=== PATIENT | female | born 1940 | race African-American/Black ===

== ENCOUNTER 2019-06-13 13:51 | Inpatient (IN) ==
[2019-06-13] MEDS ORDERED: ZOFRAN IV ONE (14:22)
[2019-06-13] MEDS ORDERED: PEPCID IV ONE (14:22)
[2019-06-13] MEDS ORDERED: NS 250 ML IV ONE (14:22)
[2019-06-13] MEDS ORDERED: SODIUM CHLORIDE 0.9% INJ ONE (14:22)
--- NOTE | 2019-06-13 14:55 | PROVIDER DOCUMENTATION ---
HPI-Abdominal Pain/GI Problem - General Chief Complaint: Nausea/Vomiting Stated Complaint: GENERAL Time Seen by Provider: 06/13/19 14:22 Source: patient Allergies/Adverse Reactions: Patient Allergies Allergy/AdvReac Type Severity Reaction Status Date / Time No Known Allergies Allergy Verified 06/13/19 15:02 Home Medications: Home Medication List Medication Instructions Recorded Confirmed Last Taken Type Guaifenesin/Dextromethorphan 1 each PO Q12H PRN PRN #30 03/08/16 06/13/19 Unknown Rx [Mucinex Dm ER 1,200-60 mg Tab] tbmp.12hr Amlodipine [Norvasc] 1 tab PO DAILY 06/13/19 06/13/19 Unknown History Fluticasone 50 Mcg Nasal [place] 1 spray INH DAILY 06/13/19 06/13/19 Unknown History [Flonase] Guaifenesin/Dextromethorphan 1 tab PO DAILY 06/13/19 06/13/19 Unknown History [Mucus Dm Max ER 1,200-60 mg Tb] Latanoprost 1 drp OPH DAILY 06/13/19 06/13/19 Unknown History Omeprazole 40 mg PO DAILY 06/13/19 06/13/19 Unknown History Pioglitazone [Actos] 1 tab PO DAILY 06/13/19 06/13/19 Unknown History Rosuvastatin Calcium 1 tab PO DAILY 06/13/19 06/13/19 Unknown History Spironolactone 1 tab PO DAILY 06/13/19 06/13/19 Unknown History Trazodone HCl 1 tab PO DAILY 06/13/19 06/13/19 Unknown History - History of Present Illness-ABD Nature of Presenting Problems: 78yof presents to ED c/o N/V since last night. States she was sent here per GI lab for eval for SBO; was scheduled for colonoscopy. Quality of Pain: reports: none Severity in ED: reports: mild Onset/Duration: reports: gradual, 24 hours ago Timing: reports: still present Activities at Onset: reports: none Exposure to sick contacts?: No Modifying Factors: improves with: nothing Associated Symptoms: reports: denies symptoms Bruising or Bleeding Gums?: No Similar Symptoms Previously?: No Recently seen or treated by another doctor?: No Review of Systems - Adult - REVIEW OF SYSTEMS - ADULT Constitutional: reports: no symptoms reported Eyes: reports: no symptoms reported Ears, Nose, Mouth & Throat: reports: no symptoms reported Cardiovascular: reports: no symptoms reported Respiratory: reports: no symptoms reported Gastrointestinal: reports: see HPI, nausea, vomiting Genitourinary: reports: no symptoms reported Musculoskeletal: reports: no symptoms reported Integumentary: reports: no symptoms reported Neurological: reports: no symptoms reported Psychiatric: reports: no symptoms reported Endocrine: reports: no symptoms reported Hematologic/Lymphatic: reports: no symptoms reported Allergic/Immunologic: reports: no symptoms reported All Other Systems: Reviewed and Negative Past History - Adult - PAST MEDICAL HISTORY-ADULT Review of Records: reports: Old Records Reviewed, Nursing Assessment Review, Medications Reviewed, Social history reviewed & non-contributory. Major Childhood Illnesses: reports: denies history Cardiovascular: reports: HTN, hyperlipidemia Respiratory: reports: denies history Gastrointestinal: reports: denies history Obstetrical/Gynecological: reports: denies history Genitourinary: reports: denies history Musculoskeletal: reports: arthritis Neurological: reports: denies history Endocrine/Immune: reports: Diabetes Other Conditions: reports: denies history - PRIOR SURGERIES/PROCEDURES Surgical/Procedure History: reports: reviewed, not pertinent, other (lumpectomy) - IMMUNIZATION STATUS Childhood Immunizations: See Nurse Assessment Flu Vaccine: See Nurse Assessment - FAMILY HISTORY Family History: reviewed, not pertinent, other (not contributory) - SOCIAL HISTORY Smoking: non-smoker Living Situation: family Physical Exam-General - PHYSICAL EXAM-ADULT Initial Vital Signs Reviewed: Yes - CONSTITUTIONAL General Appearance: appears well, alert, no apparent distress - EYES Eyes: PERRL/EOMI, pink conjunctivae, anisocoria - HEAD, EARS, NOSE, MOUTH & THROAT HENMT: normocephalic/atraumatic, normal ENT inspection, TMs normal, pharynx normal, other (Dry MM) - NECK Neck: non-tender, full range of motion, supple, normal inspection - RESPIRATORY Respiratory: chest non-tender, lungs clear, normal breath sounds, no pleuratic chest pain, no respiratory distress, no accessory muscle use - CARDIOVASCULAR Cardiovascular: normal peripheral pulses, regular rate, rhythm, no edema, no gallop, no JVD - GASTROINTESTINAL (ABDOMEN) Abdominal Exam: normal bowel sounds, non tender, soft, no organomegaly - LYMPHATIC Lymphatic: no adenopathy, axilla node tender - MUSCULOSKELETAL Back Exam: normal inspection, no CVA tenderness, no vertebral tenderness Extremity: normal range of motion, non-tender, normal gait - SKIN Integumentary: normal color, normal turgor, warm/dry - NEUROLOGIC Neurologic: glass etcher II-XII nml as tested, grossly normal, no motor/sensory deficits - PSYCHIATRIC Psych/Mental Status: normal mood/affect, normal thought content, normal thought process, oriented x 3 Progress - PLAN OF CARE/RESULTS Progress/Plan/Lab Results: Vital Signs - 8 hr 06/13/19 13:59 Temperature 97.6 F Pulse Rate 105 H Respiratory Rate 18 Blood Pressure 114/80 O2 Sat by Pulse Oximetry 98 Orders Category Date Time Status Finger Stick Blood Sugar (ED) DIRECTED Care 06/13/19 14:55 Ordered AMYLASE [CHEM] Stat Lab 06/13/19 14:22 Uncollected CBC WITH DIFF [HEME] Stat Lab 06/13/19 14:22 Uncollected COMPREHENSIVE METABOLIC PANEL [CHEM] Stat Lab 06/13/19 14:22 Uncollected LIPASE [CHEM] Stat Lab 06/13/19 14:22 Uncollected URINALYSIS W/POSS RFLX CULT [URINALYSIS] Stat Lab 06/13/19 14:22 Uncollected VBG [VENOUS BLOOD GAS] [RESP] Stat Lab 06/13/19 14:55 Uncollected 0.9% Sodium Chloride Inj [Ns] 250 ml Med 06/13/19 14:22 Discontinued IV 999 mls/hr Famotidine [Pepcid] Med 06/13/19 14:22 Discontinued 20 mg IV NOW ONE Ondansetron [Zofran] Med 06/13/19 14:22 Discontinued 4 mg IV NOW ONE Sodium Chloride 0.9% Med 06/13/19 14:22 Discontinued 5 - 10 ml INJ NOW ONE Lab results, imaging results, need for admission, and plan of care discussed with patient and daughter. Result Diagrams: 06/13/19 14:19 06/13/19 14:19 - EKG 1 Time of EKG reading by physician:: 17:11 EKG Read and Signed by:: Aaron Renee EKG Interpretation (*Must complete 3 of following elements*): Abnormal Rate: 102 Rhythm: [address] [place]: normal QRS: normal [place] Interval: normal ST Wave: normal - XRAY 1 XRAY: Bilateral XRAY Study: Chest Impression: See EMR Report ([facility] - [address], [address], [place] [address] [address] Department of Imaging Patient: ALBERTA MOLINA Date: 06/13/19MR#: [id number] : 1940DM Status: REG ERAcct#: [id number] Age/Sex: 78/FRoom/Bed: Loc: ED Ordering Physician: Blanca Khan Family Physician: Ming Palmer Jr, MD Reason for Procedure: Vomiting; concern for aspiration ___ Signed EXAM: CHEST-1 VIEW INDICATION: Vomiting; concern for aspiration TECHNIQUE: One view COMPARISON: 06/01/2019 FINDINGS: The lungs are grossly clear. There is no discrete pleural fluid collection or pneumothorax. The cardiomediastinal silhouette and central vasculature are grossly unremarkable. IMPRESSION: No evidence of acute pathology by plain radiograph. Electronically signed by Benitez Bloom 06/13/2019 6:27 PM 06/13/191826 Interpreting Physician: Benitez Bloom MD Dictated Date/Time: 06/13/191826 cc: Blanca Juarez; Ming Palmer Jr, MD) - CT/MRI 1 CT Study: Abdomen, Pelvis Impression: See EMR Report ([facility] - [address], [address], [place] [address] [address] Department of Imaging Patient: ALBERTA MOLINA Date: 06/13/19MR#: [id number] : 1940DM Status: REG ERAcct#: [id number] Age/Sex: 78/FRoom/Bed: Loc: ED Ordering Physician: Chante Phillip Family Physician: Ming Palmer Jr, MD Reason for Procedure: abd pain, vomiting Signed EXAM: CT ABDOMEN/PELVIS W/O CONTRAST INDICATION: abd pain, vomiting TECHNIQUE: This exam was performed using automated exposure control, adjustment of mA or kV according to patient size, and/or use of iterative reconstruction technique. COMPARISON: None. FINDINGS: The liver, gallbladder, and spleen are grossly unremarkable. The pancreas is somewhat atrophic but is unremarkable, otherwise. There is a 1.6 cm right adrenal nodule and a 1.9 cm left adrenal nodule. They're densities are highly compatible with adenomas. There are a couple small cyst density lesions associated with the right kidney. The kidneys are unremarkable, otherwise. The urinary bladder is nondistended and is grossly unremarkable, otherwise. There is a partially calcified nodule at the fundus of the uterus consistent with a leiomyoma. The reproductive tract is grossly unremarkable as imaged, otherwise. The appendix is normal. There are a very few colonic diverticula with no evidence of diverticulitis. There is a small hiatal hernia. No focal bowel wall thickening or bowel obstruction is identified. The remainder of the GI tract is grossly unremarkable. There is a small umbilical hernia that contains only fat. There is extensive aortoiliac atherosclerotic calcification. No focal inflammatory changes, free abdominal gas, or free fluid is identified. There is extensive multilevel degenerative arthropathy throughout the lumbar and lower thoracic spine. There is no evidence of acute osseous abnormality. IMPRESSION: 1.Small hiatal hernia. 2.Bilateral adrenal adenomas. 3.Other incidental/nonacute findings detailed above. No definite acute pathology by unenhanced CT. Electronically signed by Benitez Bloom 06/13/2019 3:38 PM 06/13/19 4558 Interpreting Physician: Benitez Bloom MD Dictated Date/Time: 06/13/19 7846 cc: Chante Phillip; Ming Palmer Jr, MD) - CONSULTS/PCP/HOSPITALIST Notification #1 *Consult/PCP/Hospitalist*: MD Estuardo (condominium manager for [facility]) Time Discussed: 18:05 Reason/Comments: Dehydration; elevated tropnin; n/v Consult Disposition: Will see in ED, Admit - CHANGE OF SHIFT REPORT (ED Provider) 1 Report Given and Care Transferred to:: Blanca ADELA Time of Transfer: 15:51 Items Pending: Labs, CT/MRI Results Departure - Departure Date of Disposition Decision: 06/13/19 Time of Disposition Decision: 18:08 DIAGNOSIS: Dehydration, Elevated troponin, Ketonuria Nausea and vomiting Qualifiers: Vomiting type: unspecified Vomiting Intractability: non-intractable Qualified Code(s): R11.2 - Nausea with vomiting, unspecified Renal failure Qualifiers: Renal failure chronicity: unspecified chronicity Qualified Code(s): N19 - Unspecified kidney failure Disposition: ADMITTED INPATIENT 09 Certified Medical Emergency: Emergent Condition: Fair Referrals and Follow-Ups: Ming Palmer Jr, MD [Primary Care Provider] - - Critical Care Note This patient required my direct & personal management of CC.: No Attestation - Physician/ JAILENE Attestation Patient care was provided by Advanced Practice Provider:: Yes Advanced Practice Provider:: Chante Phillip Advanced Practice Provider documentation review:: The Mid-level provider documentation, treatment plan and medical decision making was reviewed by the physician who agrees with all treatment and medical decision making by the MLP. The physician spent face to face time with patient:: No Advanced Practice Provider documentation review:: Supervising physician onsite and consulted in the evaluation and care of this patient. The physician did not have a face to face encounter with the patient.
[2019-06-13 15:07] LABS: BASO# 0.01 X1000 (0.0-0.2); BASO% 0.1 % (0.0-0.8); HEMATOCRIT 38.8 % (37.0-47.0); IMM GRAN# 0.12 X1000 (0.0-0.04); IMM GRAN% 1.3 % (0.0-0.5); LYMPH# 1.42 X1000 (1.2-3.4); LYMPH% 15.1 % (20.5-51.1); MCHC 33.5 g/dL (33-37); MCV 89.6 FL (81-99); MONO# 0.47 X1000 (0.11-0.59); MPV 9.9 FL (7.4-10.4); NEUT# 7.38 X1000 (1.4-6.5); NEUT% 78.5 % (42.2-75.2); PLT 210 X1000 (130-400); RBC 4.33 XMIL (4.2-5.4); RDW 14.9 % (11.5-14.5)
[2019-06-13 15:32] LABS: ALB/GLOB RATIO 1.6; ALBUMIN 4.5 g/dL (3.5-5.0); CALCIUM 10.1 mg/dL (8.8-10.2); CREATININE 2.9 mg/dL (0.5-0.9); POTASSIUM 4.3 mmol/L (3.5-5.1); TOTAL BILIRUBIN 0.83 mg/dL (0.20-1.00); TOTAL PROTEIN 7.4 g/dL (6.3-8.3)
--- NOTE | 2019-06-13 15:41 | Diag Imaging Result Doc PS360 ---
EXAM: CT ABDOMEN/PELVIS W/O CONTRAST INDICATION: abd pain, vomiting TECHNIQUE: This exam was performed using automated exposure control, adjustment of mA or kV according to patient size, and/or use of iterative reconstruction technique. COMPARISON: None. FINDINGS: The liver, gallbladder, and spleen are grossly unremarkable. The pancreas is somewhat atrophic but is unremarkable, otherwise. There is a 1.6 cm right adrenal nodule and a 1.9 cm left adrenal nodule. They're densities are highly compatible with adenomas. There are a couple small cyst density lesions associated with the right kidney. The kidneys are unremarkable, otherwise. The urinary bladder is nondistended and is grossly unremarkable, otherwise. There is a partially calcified nodule at the fundus of the uterus consistent with a leiomyoma. The reproductive tract is grossly unremarkable as imaged, otherwise. The appendix is normal. There are a very few colonic diverticula with no evidence of diverticulitis. There is a small hiatal hernia. No focal bowel wall thickening or bowel obstruction is identified. The remainder of the GI tract is grossly unremarkable. There is a small umbilical hernia that contains only fat. There is extensive aortoiliac atherosclerotic calcification. No focal inflammatory changes, free abdominal gas, or free fluid is identified. There is extensive multilevel degenerative arthropathy throughout the lumbar and lower thoracic spine. There is no evidence of acute osseous abnormality. IMPRESSION: 1.Small hiatal hernia. 2.Bilateral adrenal adenomas. 3.Other incidental/nonacute findings detailed above. No definite acute pathology by unenhanced CT. Electronically signed by Benietz Bloom 06/13/2019 3:38 PM
[2019-06-13 15:44] VITALS: BP 128/73
[2019-06-13 16:23] LABS: BE -7.8 mmoll (-2.0-2.0); BLOOD TYPE VENOUS; HCO3-(ACT) 17.9 mmoll (22-27); PCO2(98.6) 29 mmHg (40-60); PO2(98.6) 29 mmHg (30-55); SAMPLE BLOOD; SAO2 60.6 % (40.0-85.0); pH(98.6) 7.36 (7.32-7.43)
[2019-06-13] MEDS ORDERED: NS 1,000 ML IV ONE (16:34)
[2019-06-13 17:37] LABS: URINE SOURCE CATH
[2019-06-13 17:41] LABS: BILIRUBIN URINE MODERATE (NEGATIVE); BLOOD URINE SMALL (NEGATIVE); COLOR YELLOW; GLUCOSE URINE NEGATIVE (NEGATIVE); KETONE URINE 20 mg/dL (NEGATIVE); LEUKOCYTES URINE NEGATIVE (NEGATIVE); NITRITE URINE NEGATIVE (NEGATIVE); PROTEIN URINE 70 mg/dL (NEGATIVE); TURBIDITY URINE HAZY (CLEAR); UROBILINOGEN URINE 3 mg/dL (NORMAL)
[2019-06-13 17:43] LABS: UR EPITHELIAL CELLS >10 /HPF (<10); URINE BACTERIA NEGATIVE /HPF; URINE RBC <10 /HPF (<10); URINE WBC <10 /HPF (<10)
[2019-06-13 17:53] LABS: URINE SMALL ROUND CELLS TRANS PRESENT
--- NOTE | 2019-06-13 17:58 | EKG Report ---
Test Performed on : 06/13/2019 5:04:52 PM Test Reason : vomiting Blood Pressure : / mmHG Vent. Rate : 102 BPM Atrial Rate : 102 BPM P-R Int : 154 ms QRS Dur : 078 ms QT Int : 356 ms P-R-T Axes : 073 030 073 degrees QTc Int : 463 ms Sinus tachycardia. Otherwise normal ECG When compared with ECG of 01-JUN-2019 11:49, (Unconfirmed) premature atrial complexes. are no longer present Unconfirmed Result
[2019-06-13] MEDS ORDERED: HALDOL IV ONE (18:02)
--- NOTE | 2019-06-13 18:29 | Diag Imaging Result Doc PS360 ---
EXAM: CHEST-1 VIEW INDICATION: Vomiting; concern for aspiration TECHNIQUE: One view COMPARISON: 06/01/2019 FINDINGS: The lungs are grossly clear. There is no discrete pleural fluid collection or pneumothorax. The cardiomediastinal silhouette and central vasculature are grossly unremarkable. IMPRESSION: No evidence of acute pathology by plain radiograph. Electronically signed by Benitez Bloom 06/13/2019 6:27 PM
[2019-06-13] MEDS ORDERED: MUCINEX DM PO PRN (19:29)
[2019-06-13] MEDS ORDERED: NS 1,000 ML IV SCH (19:45)
--- NOTE | 2019-06-13 20:06 | HISTORY AND PHYSICAL ---
CHIEF COMPLAINT: Nausea and vomiting. PRESENT ILLNESS: This is the first recent [facility] admission for this 78-year-old black female patient of Dr. Ming Palmer. She presented to the emergency room with 24-hour history of frequent nausea and vomiting and inability to hold anything down. She had no hematemesis. There has been no diarrhea or fever. She was evaluated in the emergency room. CT scan of her abdomen and pelvis revealed small hiatal hernia, bilateral adrenal adenomas, uterus consistent with a leiomyoma, diverticula, but no diverticulitis of the colon. There was no evidence of bowel obstruction. There was a small umbilical hernia containing only fat. There was extensive atherosclerotic calcification in the aortoiliac areas. Because of her intractable vomiting, decision was made to put her in the hospital for hydration and further evaluation. Laboratory revealed normal white count at 9400, hematocrit 38.8, BUN 30, creatinine 2.9. She was in the emergency room a little over a week ago, and BUN was 43, creatinine 2.3. Glucose today is 118. Recheck is 98. Troponin is mildly elevated at 0.04. CPK not done. Amylase was 27, lipase 13. PRESENT MEDICATIONS: Amlodipine 10 mg 1 daily. Flonase nasal spray daily. Guaifenesin dextromethorphan ER 1200/60 one q.12 h. Omeprazole 40 mg daily. Actos 30 mg daily. Crestor 40 mg daily. Spironolactone 50 mg daily. Trazodone 150 mg daily. ALLERGIES: None known. REVIEW OF SYSTEMS: Obese, in no distress. She is adamant about not staying in the hospital. Her daughter is agreeable to watch her overnight. FAMILY HISTORY: Significant for hypertension and heart disease. SOCIAL HISTORY: No recent smoking or alcohol usage. PHYSICAL EXAMINATION: VITAL SIGNS: Temperature 98.4 degrees, heart rate 84, respirations 18, blood pressure 160/67, O2 saturation room air 98%. GENERAL: Patient is a well-developed, well-nourished, obese black female in no apparent distress. HEENT: Pupils equal, round, and reactive to light. Teeth are poor with many missing. NECK: Supple with no mass or lymphadenopathy. HEART: Regular in rate and rhythm with no murmur, rub, or gallop. LUNGS: Clear with no rales or rhonchi. ABDOMEN: Obese with no mass, tenderness, or organomegaly. EXTREMITIES: No cyanosis, clubbing, or edema. RECTAL AND GENITALIA: Deferred. IMPRESSION: 1. Acute gastritis. 2. Volume depletion. 3. History of chronic kidney disease, stage 2. 4. Diabetes. 5. Diverticulosis. 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 PLAN: Admit for hydration and further evaluation. cc: Kirill Marte MD
[2019-06-14] MEDS ORDERED: NORVASC PO SCH (09:00)
[2019-06-14] MEDS ORDERED: ACTOS PO SCH (09:00)
[2019-06-14] MEDS ORDERED: FLONASE NAS SCH (09:00)
[2019-06-14] MEDS ORDERED: ALDACTONE PO SCH (09:00)
[2019-06-14] MEDS ORDERED: PRILOSEC PO SCH (09:00)
[2019-06-14] MEDS ORDERED: CRESTOR PO SCH (09:00)
[2019-06-14] MEDS ORDERED: DESYREL PO SCH (09:00)
== END 2019-06-13 20:56 | disposition left against medical advice (07) | DRG 641 ==
LOC: ED 13:51 → 3N 19:35
PROVIDERS: ADMIT Family Medicine; ATTEND Family Medicine

== ENCOUNTER 2019-06-29 18:52 | Inpatient (IN) ==
--- NOTE | 2019-06-29 19:26 | PROVIDER DOCUMENTATION ---
This chart was entered by Kamari Kimbrough Scribe, acting as scribe for Scout Cobian MD. HPI-General Adult - General Chief Complaint: Altered Mental Status Stated Complaint: MULTILPLE HEALTH CONCERNS Time Seen by Provider: 06/29/19 19:02 Source: patient Unable to obtain history due to:: other (limited due to AMS) Allergies/Adverse Reactions: Patient Allergies Allergy/AdvReac Type Severity Reaction Status Date / Time No Known Allergies Allergy Verified 06/27/19 17:35 Home Medications: Home Medication List Medication Instructions Recorded Confirmed Last Taken Type Amlodipine [Norvasc] 1 tab PO DAILY 06/13/19 06/27/19 06/26/19 History Latanoprost 1 drp OPH DAILY 06/13/19 06/27/19 06/26/19 History Omeprazole 40 mg PO DAILY 06/13/19 06/27/19 Unknown History Trazodone HCl 1 tab PO DAILY 06/13/19 06/27/19 06/26/19 History Sulfamethoxazole/Trimethoprim 1 ea PO BID #10 tab 06/27/19 Unknown Rx [Bactrim Ds Tablet] - History of Present Illness -Gen Adult Nature of Presenting Problems: 78 y/o BF with dmentia who presents with family due to worsening mental s tatus,inability to walk due to leg weakness, and noncompliance with medication for past 2 days. . Onset/Duration: reports: 2 days ago Timing: reports: still present, getting worse Associated Symptoms: reports: weakness Review of Systems - Adult - REVIEW OF SYSTEMS - ADULT ROS:: limited per condition (due to altered mental status) Constitutional: reports: see HPI Respiratory: reports: see HPI Neurological: reports: other (generalized weakness). denies: headache/migraines Past History - Adult - PAST MEDICAL HISTORY-ADULT Review of Records: reports: Nursing Assessment Review, Medications Reviewed Major Childhood Illnesses: reports: denies history Cardiovascular: reports: HTN, hyperlipidemia Respiratory: reports: denies history Gastrointestinal: reports: denies history Obstetrical/Gynecological: reports: denies history Genitourinary: reports: denies history Musculoskeletal: reports: arthritis Neurological: reports: denies history Endocrine/Immune: reports: Diabetes Other Conditions: reports: denies history - PRIOR SURGERIES/PROCEDURES Surgical/Procedure History: reports: reviewed, not pertinent, other (lumpectomy) - IMMUNIZATION STATUS Childhood Immunizations: See Nurse Assessment Flu Vaccine: See Nurse Assessment - FAMILY HISTORY Family History: reviewed, not pertinent, other (not contributory) Physical Exam-General - PHYSICAL EXAM-ADULT Exam Limited by: altered mental status Initial Vital Signs Reviewed: Yes - CONSTITUTIONAL General Appearance: alert, lethargic, slow to respond, other (altered) - HEAD, EARS, NOSE, MOUTH & THROAT HENMT: other (dry mucous membranes) - NECK Neck: full range of motion, normal inspection - RESPIRATORY Respiratory: lungs clear, normal breath sounds, no respiratory distress, no accessory muscle use - CARDIOVASCULAR Cardiovascular: normal peripheral pulses, irregularly irregular - GASTROINTESTINAL (ABDOMEN) Abdominal Exam: normal bowel sounds, non tender, soft - MUSCULOSKELETAL Extremity: other (severe bilateral leg weakness, unable to lift bilateral legs) - SKIN Integumentary: normal color, warm/dry - NEUROLOGIC Neurologic: other (generalized weakness; altered mental status) - PSYCHIATRIC Psych/Mental Status: other (oriented to person and personal address, slow menta tion) Progress - PLAN OF CARE/RESULTS Progress/Plan/Lab Results: Vital Signs - 8 hr 06/29/19 18:59 Temperature 97.9 F Pulse Rate 74 Respiratory Rate 20 Blood Pressure 169/78 O2 Sat by Pulse Oximetry 97 Orders Category Date Time Status FSBS/Accucheck Result NOW Care 06/29/19 19:08 Active Saline Loc DIRECTED Care 06/29/19 19:09 Active NPO Diet 06/29/19 19:[address] HEAD W/O CONTRAST [CT] Stat Exams 06/29/19 19:10 Ordered CBC WITH ELECTRONIC DIFF [HEME] Stat Lab 06/29/19 19:09 Ordered CBC WITH ELECTRONIC DIFF [HEME] Stat Lab 06/29/19 19:10 Uncollected COMPREHENSIVE METABOLIC PANEL [CHEM] Stat Lab 06/29/19 19:09 Uncollected LIPASE [CHEM] Stat Lab 06/29/19 19:[address] W/POSS RFLX CULT [URINALYSIS] Stat Lab 06/29/19 19:09 Uncollected delay in care, nurse was unable to obtain catheterized urine, family became beligerent and became derogatory to nurses and physician, patient is now agitated Result Diagrams: 06/29/19 20:08 06/29/19 20:08 - XRAY 1 XRAY Study: Chest Impression: See EMR Report (EXAM: CHEST-PORTABLE - 06/29/2019 HISTORY: altered mentation TECHNIQUE: Portable chest COMPARISON: 06/27/2019 FINDINGS: Heart size appears normal. Inspiration is mildly shallow. There is mild subsegmental atelectasis at the left base. The lungs otherwise appear clear. There is no pleural effusion or pneumothorax identified. IMPRESSION: Mildly shallow inspiration, with mild subsegmental atelectasis at left base. No other evidence of acute disease. Electronically signed by Sony Cisneros 06/29/2019 8:09 PM 06/29/192008 Interpreting Physician: Sony Cisneros MD Dictated Da te/Time: 06/29/192007 cc: Scout Cobian MD; None,PCP) - CT/MRI 1 CT Study: Head Impression: See EMR Report (EXAM: CT HEAD W/O CONTRAST - 06/29/2019 HISTORY: weakness TECHNIQUE: CT head without contrast COMPARISON: 09/11/2018 FINDINGS: There is no evidence of intracranial hemorrhage, mass effect, midline shift, or hydrocephalus. There are chronic basal ganglia calcifications. There are mild chronic microvascular ischemic changes. There is no indication of recent infarct, although acute infarcts may not be immediately visible. There is no evidence of skull fracture. IMPRESSION: No visible acute intracranial abnormality. No hemorrhage or mass effect. This exam was performed using automated exposure control, adjustment of mA or kV according to patient size, and/or use of iterative reconstruction technique. Electronically signed by Sony Cisneros 06/29/2019 7:57 PM 06/29/191956 Interpreting Physician: Sony Cisneros MD Dictated Date/Time: 06/29/191951 cc: Scout Cobian MD; None,PCP) Departure - Departure Date of Disposition Decision: 06/29/19 Time of Disposition Decision: 21:25 DIAGNOSIS: Failure of outpatient treatment Leg weakness Qualifiers: Laterality: bilateral Qualified Code(s): R29.898 - Other symptoms and signs involving the musculoskeletal system Dementia with behavioral disturbance Qualifiers: Dementia type: unspecified type Qualified Code(s): F03.91 - Unspecified dem entia with behavioral disturbance UTI (urinary tract infection) Qualifiers: Urinary tract infection type: site unspecified Hematuria presence: without hematuria Qualified Code(s): N39.0 - Urinary tract infection, site not specified Disposition: ADMITTED INPATIENT 09 Certified Medical Emergency: Emergent Condition: Stable Referrals and Follow-Ups: None,PCP [Primary Care Provider] - - Critical Care Note This patient required my direct & personal management of CC.: No Attestation - Physician/ JAILENE Attestation Patient care was provided by Advanced Practice Provider:: No The physician spent face to face time with patient:: Yes Advanced Practice Provider documentation review:: Supervising physician onsite and consulted in the evaluation and care of this patient. The physician did have a face to face encounter with the patient. This chart was documented by the indicated scribe, (Kamari Kimbrough, [place]) and accurately reflects the services I performed and decisions made by me, Scout Cobian MD, as attested by the provider's signature.
[2019-06-29 19:40] LABS: BLOOD TYPE ARTERIAL; HCO3-(ACT) 24.9 mmoll (20.0-26.0); METHB 2.1 % (0.0-1.5); O2(CT) 14.4 mL/dL (15.0-23.0); O2HB 93.7 % (95.0-99.0); PCO2(98.6) 22 mmHg (35-45); PO2(98.6) 72 mmHg (60-100); SAMPLE BLOOD; SAO2 97.9 % (95.0-100.0); THB 10.9 g/dL (11.5-17.4)
[2019-06-29 19:42] LABS: MODALITY ROOM AIR; pH(98.6) 7.58 (7.35-7.45)
[2019-06-29 19:43] LABS: ALLEN TEST YES
--- NOTE | 2019-06-29 19:59 | Diag Imaging Result Doc PS360 ---
EXAM: CT HEAD W/O CONTRAST - 06/29/2019 HISTORY: weakness TECHNIQUE: CT head without contrast COMPARISON: 09/11/2018 FINDINGS: There is no evidence of intracranial hemorrhage, mass effect, midline shift, or hydrocephalus. There are chronic basal ganglia calcifications. There are mild chronic microvascular ischemic changes. There is no indication of recent infarct, although acute infarcts may not be immediately visible. There is no evidence of skull fracture. IMPRESSION: No visible acute intracranial abnormality. No hemorrhage or mass effect. This exam was performed using automated exposure control, adjustment of mA or kV according to patient size, and/or use of iterative reconstruction technique. Electronically signed by Sony Cisneros 06/29/2019 7:57 PM
--- NOTE | 2019-06-29 20:11 | Diag Imaging Result Doc PS360 ---
EXAM: CHEST-PORTABLE - 06/29/2019 HISTORY: altered mentation TECHNIQUE: Portable chest COMPARISON: 06/27/2019 FINDINGS: Heart size appears normal. Inspiration is mildly shallow. There is mild subsegmental atelectasis at the left base. The lungs otherwise appear clear. There is no pleural effusion or pneumothorax identified. IMPRESSION: Mildly shallow inspiration, with mild subsegmental atelectasis at left base. No other evidence of acute disease. Electronically signed by Sony Cisneros 06/29/2019 8:09 PM
[2019-06-29 20:47] LABS: BASO# 0.01 X1000 (0.0-0.2); BASO% 0.1 % (0.0-0.8); EOS# 0.01 X1000 (0.0-0.7); EOS% 0.1 % (0.0-10.0); HEMATOCRIT 32.4 % (37.0-47.0); HEMOGLOBIN 10.9 g/dL (12.0-16.0); IMM GRAN# 0.06 X1000 (0.0-0.04); IMM GRAN% 0.7 % (0.0-0.5); LYMPH# 0.99 X1000 (1.2-3.4); LYMPH% 10.8 % (20.5-51.1); MCH 28.6 PG (27-31); MCHC 33.6 g/dL (33-37); MONO# 0.32 X1000 (0.11-0.59); MONO% 3.5 % (1.7-9.3); MPV 10.5 FL (7.4-10.4); NEUT% 84.8 % (42.2-75.2); PLT 214 X1000 (130-400); RBC 3.81 XMIL (4.2-5.4); RDW 14.4 % (11.5-14.5); WBC 9.19 X1000 (4.8-10.8)
[2019-06-29] MEDS ORDERED: ATIVAN IV ONE (20:52)
[2019-06-29 20:54] LABS: CALCIUM 9.5 mg/dL (8.8-10.2); CREATININE 2.7 mg/dL (0.5-0.9); TOTAL BILIRUBIN 0.6 mg/dL (0.20-1.00); TOTAL PROTEIN 6.6 g/dL (6.3-8.3)
[2019-06-29 20:56] LABS: INR 1.06; PROTIME 14.4 Seconds (11.0-16.0)
[2019-06-29] MEDS ORDERED: NS 1,000 ML IV ONE ×4 (21:12→23:09)
[2019-06-29] MEDS ORDERED: ZOSYN 3.375 GM in NS 50 ML IV ONE (21:21)
[2019-06-29] MEDS ORDERED: ZOFRAN IV PRN (21:33)
[2019-06-29] MEDS: ZOSYN 3.375 GM in NS 50 ML IV SCH (22:55)
--- NOTE | 2019-06-30 01:02 | EKG Report ---
Test Performed on : 06/29/2019 9:47:54 PM Test Reason : pain Blood Pressure : / mmHG Vent. Rate : 078 BPM Atrial Rate : 078 BPM P-R Int : 000 ms QRS Dur : 098 ms QT Int : 448 ms P-R-T Axes : 000 056 094 degrees QTc Int : 510 ms Undetermined rhythm Minimal voltage criteria for LVH, may be normal variant Nonspecific T wave abnormality Abnormal ECG When compared with ECG of 27-JUN-2019 16:57, (Unconfirmed) Current undetermined rhythm precludes rhythm comparison, needs review QT has lengthened Unconfirmed Result
[2019-06-30 02:39] LABS: BILIRUBIN URINE NEGATIVE (NEGATIVE); BLOOD URINE 2+ (NEGATIVE); CLARITY SL. CLOUDY (CLEAR); COLOR AMBER; GLUCOSE URINE NEGATIVE (NEGATIVE); KETONE URINE TRACE mg/dL (NEGATIVE); LEUKOCYTES URINE TRACE (NEGATIVE); NITRITE URINE NEGATIVE (NEGATIVE); PH URINE 6.5; PROTEIN URINE 1+(30 mg/dL) mg/dL (NEGATIVE); SP GRAVITY URINE 1.015; URINE SOURCE CATH; UROBILINOGEN URINE NORMAL
[2019-06-30 02:40] LABS: URINE BACTERIA 4+ /HFP; URINE EPITHELIAL CELLS <10 /HPF (<10); URINE WBC <10 /HPF (<10)
[2019-06-30] MEDS: ZOSYN 3.375 GM in NS 50 ML IV SCH ×3 (04:50→17:59)
[2019-06-30] MEDS: NS 1,000 ML IV SCH (09:25)
[2019-06-30 10:20] LABS: ALBUMIN 3.3 g/dL (3.5-5.0); CALCIUM 8.7 mg/dL (8.8-10.2); CREATININE 2.3 mg/dL (0.5-0.9); POTASSIUM 3.3 mmol/L (3.5-5.1); TOTAL BILIRUBIN 0.6 mg/dL (0.20-1.00); TOTAL PROTEIN 5.7 g/dL (6.3-8.3)
[2019-06-30] MEDS: ATIVAN IV PRN (10:31)
--- NOTE | 2019-06-30 10:57 | HISTORY AND PHYSICAL ---
PRIMARY CARE PROVIDER: Dr. Ming Palmer. CHIEF COMPLAINT: Per family, weakness, agitation, and urinary incontinence. HISTORY OF PRESENT ILLNESS: Ms. 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 Family states she was rehydrated and then discharged back home. It looks like a few days later, they brought her back to the ED on 06/27/2019 for generalized weakness and fatigue, and was discharged home with medication for urinary tract infection. Family reports over the last several days, she has had a couple of falls. She is too weak to walk. She has not been able to take her urinary tract medicine. She had an episode of incontinence and a decrease in her appetite, so we will admit her for failure of outpatient treatment of UTI. Continue IV hydration for dehydration. Will consult Physical Therapy as well as Conference Manager. Family is interested in home health and PT, as well as a front wheel walker. We will continue treatment with IV antibiotics, and await her urine culture. PAST MEDICAL HISTORY: 1. Chronic kidney disease stage 2. 2. Diabetes mellitus. 3. Diverticulosis. 4. Hypertension. 5. Hyperlipidemia. FAMILY HISTORY: Significant for hypertension and heart disease. SOCIAL HISTORY: She lives with family. No smoking or alcohol. REVIEW OF SYSTEMS: Complete and negative, except for those mentioned in the HPI. PHYSICAL EXAMINATION: VITAL SIGNS: Temperature is 97.7 degrees, heart rate 68, respirations 18, blood pressure 143/53, O2 is 99% on room air. GENERAL: Ms. Murillo is a 78-year-old female who is lying in the bed in no acute distress. HEENT: Atraumatic, normocephalic. PERRL. NECK: Supple. Trachea midline. CARDIOVASCULAR: Irregularly irregular, but no murmurs, gallops, or rubs. LUNGS: Clear bilaterally. Decreased in the bases. No rales, rhonchi, or wheezes. ABDOMEN: Obese, soft, nontender. Positive bowel sounds in all 4 quadrants. LOWER EXTREMITIES: No clubbing. No cyanosis or edema. NEUROLOGIC: The patient knows her name, her date of , her daughter at the bedside. She believes that she is at her daughter's house. Unsure why she was brought to the hospital. Could not appreciate any focal deficits. DIAGNOSTIC DATA: Head CT: No visible acute intracranial abnormality. No hemorrhage or mass effect. Chest x-ray: Mildly shallow inspiration. Atelectasis in the left base. No evidence of acute disease. EKG was indeterminate rhythm at 78 beats per minute. LABORATORY DATA: White count 9, hemoglobin and hematocrit 10 and 32, platelet count is 214,000. ABG: PH 7.58, CO2 of 22, O2 of 72, base excess 0.0, O2 saturation was 97% on room air. Sodium 136, potassium 4.0, BUN 35, creatinine 2.7, blood glucose was 232. Urinalysis shows 4+ bacteria, trace WBC, 2+ blood, negative nitrate. ASSESSMENT AND PLAN: 1. Failed outpatient treatment of urinary tract infection. Will continue with broader spectrum antibiotics. Await urine culture. 2. Clinical dehydration. Will continue with intravenous fluids. 3. Acute kidney injury on chronic kidney disease stage 2. She did receive, it looks like, a 3 liter bolus. Will continue with intravenous fluids. 4. Generalized weakness, decrease in appetite. We will consult Physical Therapy as well as Conference Manager. Family is interested in home health with physical therapy, as well as DME with a front wheel walker and others. Will place her on gastrointestinal soft diet. 5. Hypertension. 6. Diabetes mellitus. Will place her on sliding scale with pattern blood sugars. Further recommendations to follow physician evaluation, laboratory and diagnostic data. Dictated by ADELA Puente for Dario Whiting MD cc: MD Ming Vidales Jr, MD
[2019-06-30] MEDS ORDERED: KLOR-CON PO ONE (13:47)
[2019-06-30] MEDS ORDERED: MAGNESIUM SULFATE 4 GM/S.W.I. 4 GM/100 ML IVPB IV ONE (14:11)
[2019-06-30] MEDS: HUMALOG (PARKWAY) SUBQ SCH (16:30)
--- NOTE | 2019-06-30 16:44 | HISTORY AND PHYSICAL ---
ADDENDUM: Patient seen and examined by myself. Full note dictated and discussed with nurse practitioner. Patient presented to the hospital with confusion, fatigue, dehydration. She was recently treated in the hospital and discharged home. She does have dementia and increased inability to walk as well as increased confusion over the last few days. We are going to admit her to the hospital, check urine, urine culture, place her on fluids, restart her home medicines and will follow. cc: Dario Whiting MD
[2019-07-01] MEDS: HUMALOG (PARKWAY) SUBQ SCH ×5 (00:13→21:29)
[2019-07-01] MEDS: DESYREL PO SCH ×2 (00:22→21:27)
[2019-07-01] MEDS: ZOSYN 3.375 GM in NS 50 ML IV SCH ×2 (00:23→05:33)
[2019-07-01] MEDS: ATIVAN IV PRN (03:23)
[2019-07-01] MEDS: NS 1,000 ML IV SCH ×2 (05:35→14:40)
[2019-07-01] MEDS: PRILOSEC PO SCH ×2 (05:37→08:57)
[2019-07-01] MEDS ORDERED: MAGNESIUM SULFATE 2 GM/S.W.I. 2 GM/50 ML IVPB IV ONE (06:52)
[2019-07-01] MEDS ORDERED: KLOR-CON PO ONE (06:52)
[2019-07-01] MEDS: ACTOS PO SCH (08:56)
[2019-07-01] MEDS: NORVASC PO SCH (08:56)
[2019-07-01] MEDS: KLOR-CON PO SCH (08:56)
[2019-07-01] MEDS: ZOSYN 2.25 GM in NS 50 ML IV SCH ×3 (13:00→23:59)
--- NOTE | 2019-07-02 01:05 | PROGRESS NOTE ---
DATE: 07/01/2019 SUBJECTIVE: The patient has no complaints. However, she is not interested in answering questions. When stimulated to ask questions she simply turns her head away from me. OBJECTIVE: Vital Signs: Reviewed. General: She is awake and alert. She is in no current respiratory distress. HEENT: Normocephalic. Neck: Supple. Cardiovascular: Regular rate. Chest: Clear, nonlabored. Abdomen: Soft, nondistended. Extremities: Moves all extremities. ASSESSMENT: 1. Urinary tract infection. Culture pending. 2. Hypokalemia. Replaced. 3. Acute on chronic renal failure, improved. 4. Hypomagnesemia. Replaced. 5. Generalized weakness. 6. Hypertension. 7. Diabetes. PLAN: We will continue the patient in the hospital. Continue to follow her creatinine and her sodium awaiting urine culture. Hopefully she can improve in the next few days and be discharged home. cc: Dario Whiting MD
[2019-07-02] MEDS: ZOSYN 2.25 GM in NS 50 ML IV SCH (05:34)
[2019-07-02] MEDS: PRILOSEC PO SCH ×2 (05:36→06:06)
[2019-07-02] MEDS: NS 1,000 ML IV SCH (05:40)
[2019-07-02] MEDS: HUMALOG (PARKWAY) SUBQ SCH ×4 (06:06→22:24)
[2019-07-02 06:08] LABS: HEMATOCRIT 27.8 % (37.0-47.0); HEMOGLOBIN 9.4 g/dL (12.0-16.0); MCHC 33.8 g/dL (33-37); MCV 85.8 FL (81-99); MPV 9.9 FL (7.4-10.4); RBC 3.24 XMIL (4.2-5.4); RDW 14.5 % (11.5-14.5); WBC 7.48 X1000 (4.8-10.8)
[2019-07-02 06:28] LABS: ALBUMIN 3.3 g/dL (3.5-5.0); CALCIUM 8.7 mg/dL (8.8-10.2); CREATININE 1.9 mg/dL (0.5-0.9); MAGNESIUM 2.5 mg/dL (1.5-2.7); POTASSIUM 3.4 mmol/L (3.5-5.1); TOTAL BILIRUBIN 0.6 mg/dL (0.20-1.00); TOTAL PROTEIN 5.9 g/dL (6.3-8.3)
[2019-07-02] MEDS: ACTOS PO SCH (10:00)
[2019-07-02] MEDS: NORVASC PO SCH (10:00)
[2019-07-02] MEDS: KLOR-CON PO SCH (10:00)
[2019-07-02] MEDS ORDERED: KEFLEX PO SCH (10:45)
[2019-07-02] MEDS ORDERED: PREDNISONE PO SCH (10:45)
[2019-07-02] MEDS ORDERED: BLISTEX MEDICATED BERRY LIP BALM TOP ONE (11:30)
[2019-07-02] MEDS: XALATAN 0.005% OPH SOLN LEFT EYE SCH (22:23)
[2019-07-02] MEDS: DESYREL PO SCH (22:23)
[2019-07-03] MEDS: PRILOSEC PO SCH (06:27)
[2019-07-03] MEDS: HUMALOG (PARKWAY) SUBQ SCH ×4 (06:28→21:16)
[2019-07-03] MEDS: NORVASC PO SCH (09:35)
[2019-07-03] MEDS: ACTOS PO SCH (09:35)
[2019-07-03] MEDS: KLOR-CON PO SCH (09:35)
[2019-07-03 11:53] LABS: CALCIUM 9.2 mg/dL (8.8-10.2); CREATININE 1.7 mg/dL (0.5-0.9); POTASSIUM 3.8 mmol/L (3.5-5.1)
[2019-07-03 17:06] LABS: BE -3.7 mmoll (-3.0-3.0); BLOOD TYPE ARTERIAL; METHB 1.5 % (0.0-1.5); O2(CT) 12.6 mL/dL (15.0-23.0); O2HB 95.5 % (95.0-99.0); PCO2(98.6) 28 mmHg (35-45); PO2(98.6) 91 mmHg (60-100); SAMPLE BLOOD; SAO2 98.9 % (95.0-100.0); THB 9.3 g/dL (11.5-17.4); pH(98.6) 7.45 (7.35-7.45)
[2019-07-03 17:08] LABS: ALLEN TEST YES; MODALITY ROOM AIR
[2019-07-03] MEDS: 1/2 NS 1,000 ML IV SCH (18:13)
[2019-07-03] MEDS: ROCEPHIN 1 GM in NS 50 ML IV SCH (18:13)
--- NOTE | 2019-07-03 20:25 | PROGRESS NOTE ---
DATE: 07/02/2019 SUBJECTIVE: The patient seems very lethargic, is not quite sure why she is so persistently lethargic. OBJECTIVE: Blood pressure 129/68, heart rate 81, respiratory rate 22, temperature 97.2 degrees, 99% on room air.Cardiovascular: Regular rate and rhythm. Pulmonary: Bilateral breath sounds. Clear to auscultation. Gastrointestinal: Soft, nontender, nondistended. Bowel sounds are positive. LABORATORY DATA: White count 7, hemoglobin and hematocrit 9 and 27, platelets 185,000. Creatinine 1.9, potassium 3.4. PROBLEM LIST: 1. Urinary tract infection. Failing outpatient treatment, but her urine culture is no growth. I am not completely clear she has a urinary tract infection. Her urine on admission was really not that impressive actually. So, we will follow. 2. Hypokalemia. We will continue to monitor. 3. Acute on chronic renal failure. Continue IV fluids. 4. Encephalopathy. I really do not know what is causing her degree of lethargy. She is just very, very tired. We will continue to monitor. 5. Disposition. Pending clinical status. cc: MD Dario Chowdhury MD
--- NOTE | 2019-07-03 20:28 | PROGRESS NOTE ---
DATE: 07/03/2019 SUBJECTIVE: The patient has no major complaints, but she is just very sleepy. She will not wake up. She does wake up a little bit for family, but then she just goes back to sleep. Reportedly she has been up and awake, and normal before all of this or the day of her admission. OBJECTIVE: Blood pressure is 155/62, heart rate of 95, respiratory rate 20, temperature 97.6 degrees, 98% on room air.Cardiovascular: Regular rate and rhythm. Pulmonary: Bilateral breath sounds, clear to auscultation. GI: Soft, nontender, nondistended. Bowel sounds are positive. LABORATORY DATA: I do not have any data except sodium is 147, BUN and creatinine 32 and 1.7. ASSESSMENT AND PLAN: Problem list: 1. Possible urinary tract infection. I guess we will continue empiric antibiotics, but she is not on any actual antibiotics at this point. Her urine culture to me is really not that impressive. 2. Dehydration, acute kidney injury. We will continue fluids. 3. Encephalopathy. We will get an MRI and check other lab factors to determine if there is anything else going on there, and then proceed accordingly. Final disposition apparently will be rehab apparently. 4. Diabetes. Her blood sugars are relatively well controlled. We will continue to follow closely. cc: MD Dario Chowdhury MD
[2019-07-03] MEDS: XALATAN 0.005% OPH SOLN LEFT EYE SCH (21:16)
[2019-07-04 05:59] LABS: BASO# 0.01 X1000 (0.0-0.2); BASO% 0.1 % (0.0-0.8); EOS# 0.02 X1000 (0.0-0.7); EOS% 0.2 % (0.0-10.0); HEMATOCRIT 27.3 % (37.0-47.0); HEMOGLOBIN 8.6 g/dL (12.0-16.0); IMM GRAN% 0.9 % (0.0-0.5); LYMPH# 2.08 X1000 (1.2-3.4); LYMPH% 19.1 % (20.5-51.1); MCH 27.8 PG (27-31); MCHC 31.5 g/dL (33-37); MCV 88.3 FL (81-99); MONO# 0.29 X1000 (0.11-0.59); MONO% 2.7 % (1.7-9.3); MPV 10.2 FL (7.4-10.4); NEUT# 8.37 X1000 (1.4-6.5); PLT 182 X1000 (130-400); RBC 3.09 XMIL (4.2-5.4); WBC 10.87 X1000 (4.8-10.8)
[2019-07-04] MEDS: HUMALOG (PARKWAY) SUBQ SCH ×3 (06:10→16:15)
[2019-07-04] MEDS: PRILOSEC PO SCH (06:11)
[2019-07-04 06:20] LABS: CALCIUM 9.2 mg/dL (8.8-10.2); CREATININE 1.9 mg/dL (0.5-0.9); POTASSIUM 3.9 mmol/L (3.5-5.1)
[2019-07-04] MEDS: 1/2 NS 1,000 ML IV SCH (09:59)
[2019-07-04] MEDS: ACTOS PO SCH (09:59)
[2019-07-04] MEDS: KLOR-CON PO SCH (10:00)
[2019-07-04] MEDS: NORVASC PO SCH (10:00)
[2019-07-04] MEDS ORDERED: D5 1/4 NS 1,000 ML IV SCH (10:45)
--- NOTE | 2019-07-04 12:02 | Diag Imaging Result Doc PS360 ---
EXAM: MRI BRAIN W/WO CONTRAST - 07/04/2019 HISTORY: r/o cva TECHNIQUE: MRI brain without and with contrast. Images are obtained prior to and following gadolinium ministration. COMPARISON: 06/29/2019 CT head without contrast FINDINGS: There are substantial artifacts from motion which limit detail. There are mild chronic microvascular ischemic changes in periventricular white matter. The diffusion weighted images show no areas of restricted diffusion (no evidence of acute infarct). There is no evidence of intracranial hemorrhage, mass effect, midline shift, or hydrocephalus. There is no abnormal enhancement identified. IMPRESSION: Artifacts from motion which limit detail. Mild chronic microvascular ischemic changes. No visible acute intracranial abnormality. Electronically signed by Sony Cisneros 07/04/2019 12:00 PM
--- NOTE | 2019-07-04 17:57 | PROGRESS NOTE ---
DATE: 07/04/2019 SUBJECTIVE: Patient has no major complaints. OBJECTIVE: Blood pressure 152/96, heart rate of 101, respiratory rate of 20, temperature 97.4 degrees, 98% on room air.Cardiovascular: Regular rate and rhythm. Pulmonary: Bilateral breath sounds. Clear to auscultation. Gastrointestinal: Soft, nontender, nondistended. Bowel sounds are positive. LABORATORY AND DIAGNOSTIC DATA: White count is 10, hemoglobin and hematocrit 8 and 27, platelets 182,000. Chemistry: Sodium is up to 149, BUN is up to 38. Urine was clear. MRI was negative, although had some artifact. ASSESSMENT AND PLAN: 1. Encephalopathy. I do not know if this is underlying dementia. We will continue to follow. Check metabolic components and monitor. I may start some low-dose Risperdal at night to help with sleep. 2. Acute kidney injury, dehydration. Continue with IV fluids and follow. 3. Urinary tract infection. We will continue empiric antibiotics and follow, but right now she is not getting anything from that. 4. Diabetes. We will continue to follow blood sugars and monitor closely. DISPOSITION: Looks like rehab. cc: MD Dario Chowdhury MD
[2019-07-04] MEDS: ROCEPHIN 1 GM in NS 50 ML IV SCH (18:39)
[2019-07-05] MEDS: HUMALOG (PARKWAY) SUBQ SCH ×5 (00:09→21:30)
[2019-07-05] MEDS: XALATAN 0.005% OPH SOLN LEFT EYE SCH ×2 (00:09→21:29)
[2019-07-05] MEDS: PRILOSEC PO SCH (06:59)
[2019-07-05 07:22] LABS: BASO# 0.01 X1000 (0.0-0.2); BASO% 0.1 % (0.0-0.8); EOS# 0.02 X1000 (0.0-0.7); EOS% 0.2 % (0.0-10.0); HEMATOCRIT 28.7 % (37.0-47.0); HEMOGLOBIN 9.2 g/dL (12.0-16.0); IMM GRAN% 0.8 % (0.0-0.5); LYMPH# 1.77 X1000 (1.2-3.4); LYMPH% 13.4 % (20.5-51.1); MCH 28.9 PG (27-31); MCHC 32.1 g/dL (33-37); MCV 90.3 FL (81-99); MONO% 2.3 % (1.7-9.3); NEUT# 10.96 X1000 (1.4-6.5); NEUT% 83.2 % (42.2-75.2); PLT 170 X1000 (130-400); RBC 3.18 XMIL (4.2-5.4); RDW 15.5 % (11.5-14.5); WBC 13.16 X1000 (4.8-10.8)
[2019-07-05 07:28] LABS: AGAP 13; ALBUMIN 3.4 g/dL (3.5-5.0); ALKALINE PHOSPHATASE 83 U/L (32-104); BUN 44 mg/dL (8-22); CALCIUM 9.4 mg/dL (8.8-10.2); CHLORIDE 116 mmol/L (98-107); COSMO 309; DIRECT BILIRUBIN < 0.20 mg/dL (0.00-0.20); ESTIMATED GFR 24; GLUCOSE 257 mg/dL (70-104); GOT 19 U/L (10-30); GPT 19 U/L (10-36); POTASSIUM 4.3 mmol/L (3.5-5.1); SODIUM 145 mmol/L (136-145); TCO2 16 mmol/L (25-35); TOTAL PROTEIN 5.9 g/dL (6.3-8.3)
[2019-07-05 07:39] LABS: FREE T4 1.22 ng/dL (0.93-1.70)
[2019-07-05] MEDS: KLOR-CON PO SCH (09:11)
[2019-07-05] MEDS: NORVASC PO SCH (09:11)
[2019-07-05] MEDS: ACTOS PO SCH (09:11)
[2019-07-05] MEDS ORDERED: DULCOLAX PR ONE (10:37)
--- NOTE | 2019-07-05 11:11 | Diag Imaging Result Doc PS360 ---
EXAM: CHEST-PORTABLE HISTORY: pneumonia TECHNIQUE: Single view COMPARISON: 06/29/2019 FINDINGS: Poor inspiratory effort. The heart is mildly prominent. The vessels are not distended. There are no infiltrates. No effusion identified. IMPRESSION: No pneumonia Electronically signed by Pranav Espino 07/05/2019 11:09 AM
[2019-07-05] MEDS ORDERED: STERILE WATER INJ. INJ PRN (11:44)
[2019-07-05] MEDS ORDERED: GEODON IM PRN (11:44)
[2019-07-05] MEDS: CLINIMIX E 4.25%-5% SOLUTION 1,000 ML IV SCH (12:39)
--- NOTE | 2019-07-05 13:45 | Diag Imaging Result Doc PS360 ---
EXAM: ABDOMEN FLAT/UPRIGHT HISTORY: ileus TECHNIQUE: Two views COMPARISON: 06/01/2019 FINDINGS: There is stool throughout the colon. No organomegaly. No foreign body. Moderate degenerative bone spurring. A catheter overlies the pelvis. IMPRESSION: Constipation Electronically signed by Pranav Espino 07/05/2019 1:42 PM
[2019-07-05 14:12] LABS: C REACTIVE PROT QUANT 74.89 mg/L (0.00-5.00)
--- NOTE | 2019-07-05 14:32 | PROGRESS NOTE ---
DATE: 07/05/2019 SUBJECTIVE: She is still very confused. She kind of has this foamy secretion on her mouth. OBJECTIVE: Blood pressure is 152/90, heart rate of 96, respiratory rate 18, temperature 97.4 degrees, 100% on room air.Cardiovascular: Regular rate and rhythm. Pulmonary: Bilateral breath sounds, clear to auscultation. GI: Soft, nontender, nondistended. Bowel sounds are positive. LABORATORY DATA: Her sodium has come down to 145, anion gap is 13, carbon dioxide is 16, BUN and creatinine of 44 and 2, blood sugar 257. White count jumped up to 13, hemoglobin and hematocrit 9 and 28, platelets of 170,000. OBJECTIVE: Nonfocal exam but she is completely disoriented and all she does is just scream out. According to her family, this is a complete change from her baseline where she was paying her own bills and able to get up and around. She was not driving, but she could perform all her ADLs and now she can't. She has no idea what is going on around her. White count 13. PROBLEM LIST: 1. This is global encephalopathy. I cannot really blame it on any particular metabolic issue. I will go ahead and order EEG because I will not be available over the weekend for a neurology consult. Family has discussed about wanting her transferred and I think if we do not have a true diagnosis that we may have to consider that, if facility would be willing to accept her. In any case, we will continue to monitor. I was going to put her on some Risperdal at night but I do not think we started that, so I am going to start that now and see if that helps. Clinically, I feel most likely that this patient had some underlying dementia and probably has been hiding it well. I do not think she has family that lives actually with her and are aware of really how she is functioning, but I have no proof. According to them, prior to admission she was completely normal. I do not know when the last time was they actually saw her and I cannot get a straight answer from that. I am not sure if there was a decline that was aware or not aware. Now curiously, her PCP is not listed. She has seen Dr. Marte in the past. She was admitted on June [address] Marte so I am suspicious maybe that he is her PCP. No, she is Dr. Palmer's patient and she was adamant about not staying in the hospital. I guess we may touch base with him just to kind to get a sense what her baseline is, but we will get a neurology opinion and follow. 2. Malnutrition. I am going to continue or adjust Clinimix and follow. 3. Acute on chronic renal failure, stable. 4. Urinary tract infection. Again, I do not feel she clearly has a UTI. She is on Rocephin, but her cultures are negative. We will see how things look. 5. Disposition: She will go to rehab once we have a better idea of where her encephalopathy is because right now she is really not able to do very much. cc: MD Dario Chowdhury MD
[2019-07-05] MEDS ORDERED: MIRALAX PO SCH (16:30)
[2019-07-05] MEDS: ROCEPHIN 1 GM in NS 50 ML IV SCH (17:32)
--- NOTE | 2019-07-05 17:40 | Vascular Study Report ---
EXAM: Venous U/S Right Arm HISTORY: swelling TECHNIQUE: Right upper extremity venous Doppler ultrasound COMPARISON: None. FINDINGS: Normal flow and compressibility in the veins of the right upper extremity. No thrombus. IMPRESSION: No deep venous thrombosis identified.[SHERRIE/m Electronically signed by Pranav Espino 07/05/2019 5:38 PM
--- NOTE | 2019-07-05 19:41 | CONSULTATION ---
DATE OF CONSULTATION: 07/05/2019 HISTORY OF PRESENT ILLNESS: Ms. Murillo is [id number] and she has an altered mental state. History is taken from review of the hospital chart and from discussion with attentive daughter at the bedside. Daughter reports patient has not had significant baseline forgetfulness. There is no history of serious head injury, previously diagnosed stroke, seizure, other neurologic event. She does not use ethanol. Daughter reports patient was well, taking care of herself most of the time, directing that bills be paid appropriately eight days ago. Six or seven days ago, she seemed unsteady with gait and had several falls. She was admitted six days ago. She has continued altered mentally. She initially seemed withdrawn, not answering questions, turning her head away from the examiner when questioned. She was reported to be lethargic. She became gradually more restless. Today, she appears to be sleeping briefly, then starts shouting daughter's name, and then seems to be quickly back to sleep. Daughter reports patient has never had this pattern of behavior before. Workup includes brain MRI, which was poor quality due to her movement, but there was no definite finding other than typical age-related white matter signal. Earlier noncontrast CT of the head was similarly unremarkable. She had echocardiogram and carotid ultrasound 17 months ago, and those were not remarkable. She has been afebrile. She had one systolic blood pressure recorded at 97, otherwise systolic blood pressures 110s-150s. Recent heart rate has been 80s-110. Lab shows BUN slowly climbing to 44, a little bit above her baseline. Blood sugars have ranged 100s-200s. She has anemia. WBC count is 13,000. B12 and thyroid are normal. Home medicine list includes trazodone. Daughter reports the patient had been taking that to help sleep for many years. Trazodone was held after this admission. On the home medicine list and review of medicines with daughter, I do not see anything else with significant INSTRUMENT LENS INSPECTOR activity, and I do not see anything else that would have any association with encephalopathy with intoxication or with withdrawal. There is reported past history of diabetes mellitus and chronic kidney disease. Daughter reports patient checks her blood sugars at home, but daughter does not know recent blood sugar range. I believe that she also has hypertension. PHYSICAL EXAMINATION: Ms. Murillo is sometimes supine, quiet, breathing regularly, not attentive, and she appears to be sleeping. She has sudden waking, loud, even screaming for the daughter who is at the bedside. When daughter gets patient's attention, the patient seems to be more calm. I observed her moving both arms and both legs spontaneously and voluntarily. When I asked her to raise her arms, she raised her left arm, but did not raise the right arm well. She did count fingers indicating she has at least some vision in the left eye. I could not document vision with the right eye. I could not test field of vision with the left eye due to her inattention. She appears to be quite hard of hearing, but did answer some questions appropriately including telling me her name and her daughter's name. She held up fingers to command. She was inconsistent with commands requiring right/left distinction and digit distinction. Plantar response is silent bilaterally. Neck is supple. Extraocular movements are full. Facial motility is symmetric. IMPRESSION AND PLAN: This appears to be a global encephalopathy. I believe she may be splinting the right arm at the shoulder due to discomfort, and I am not sure there is a neurologic deficit there. I do not find anything else focal. I do not see definite clinical evidence of increased intracranial pressure. I suspect she has at least mild cognitive impairment at baseline, but I could not get confirmation of that suspicion from daughter. There could be any number of toxic or metabolic problems, but the lab work does not show definite explanation. She is afebrile. Negative CT and MRI are reassuring. I have ordered urine drug screen and EEG and further plans will depend on those reports. Thanks for asking Neurology to see Ms. Murillo. cc: MD Dario Ritter III, MD MTDD
[2019-07-05] MEDS ORDERED: RISPERDAL PO SCH (21:00)
[2019-07-05] MEDS ORDERED: DULCOLAX PR SCH (21:00)
--- NOTE | 2019-07-05 22:59 | EEG REPORT ---
DATE: 07/05/2019 EEG NUMBER: [id number]. COMMENT: This is a digitally recorded EEG on a patient with delirium, periods of agitated confusion, question of subclinical seizure. FINDINGS: Muscle contraction artifact obscures portions of the EEG. Legible portions of the EEG show mostly rhythmic theta at low amplitude across the hemispheres symmetrically. Sustained posterior dominant rhythm is not identified. Stage 2 sleep was not recorded. Photic stimulation did not alter the record. No definite epileptiform discharge was identified. INTERPRETATION: Abnormal EEG because of mild generalized slowing. CORRELATION: This is indicative of a diffuse encephalopathy and is nonspecific. The amount of slowing is just outside accepted limits for normal. The absence of epileptiform discharges on a single EEG does not exclude a clinical diagnosis of seizures, but there is nothing on this record to suggest seizure as the reason for her altered mental state. cc: MD Dario Ritter III, MD
[2019-07-05] MEDS ORDERED: MAXIPIME 2 GM in NS 100 ML IV SCH (23:45)
[2019-07-05] MEDS ORDERED: ZOSYN 2.25 GM in NS 50 ML IV ONE (23:50)
[2019-07-05 23:58] LABS: BE -8.7 mmoll (-3.0-3.0); BLOOD TYPE ARTERIAL; HCO3-(ACT) 17.4 mmoll (20.0-26.0); METHB 1.5 % (0.0-1.5); O2(CT) 7.1 mL/dL (15.0-23.0); PCO2(98.6) 32 mmHg (35-45); SAMPLE BLOOD; SAO2 58.2 % (95.0-100.0); THB 8.9 g/dL (11.5-17.4); pH(98.6) 7.32 (7.35-7.45)
[2019-07-06] MEDS ORDERED: DUONEB (A & A) ONE ×2 (00:14)
[2019-07-06] MEDS ORDERED: DUONEB (A & A) INH ONE (00:20)
[2019-07-06] MEDS ORDERED: SOLU-MEDROL IV ONE (00:20)
[2019-07-06] MEDS ORDERED: LASIX IV ONE (00:20)
[2019-07-06] MEDS ORDERED: PULMICORT INH ONE (00:20)
[2019-07-06] MEDS ORDERED: VANCOMYCIN 1 GM/NS 1 GM/250 ML IVPB IV SCH (00:30)
[2019-07-06] MEDS ORDERED: NS 100 ML ONE ×2 (00:31)
--- NOTE | 2019-07-06 00:39 | PROVIDER DOCUMENTATION ---
HPI-Neurological Disorder - General Chief Complaint: Altered Mental Status Stated Complaint: [facility] Time Seen by Provider: 06/29/19 19:02 Source: RN/MD, RN notes reviewed Allergies/Adverse Reactions: Patient Allergies Allergy/AdvReac Type Severity Reaction Status Date / Time No Known Allergies Allergy Verified 06/27/19 17:35 Home Medications: Home Medication List Medication Instructions Recorded Confirmed Last Taken Type Amlodipine [Norvasc] 10 mg PO DAILY 06/29/19 06/29/19 Unknown History Irbesartan [Avapro] 300 mg PO DAILY 06/29/19 06/29/19 Unknown History Omeprazole 40 mg PO QAM 06/29/19 06/29/19 Unknown History Pioglitazone [Actos] 30 mg PO DAILY 06/29/19 06/29/19 Unknown History Potassium Chloride 20 meq PO DAILY 06/29/19 06/29/19 Unknown History Trazodone [Desyrel] 150 mg PO DAILY 06/29/19 06/29/19 Unknown History Latanoprost/Pf [Latanoprost 0.005% 1 drp LEFT EYE HS 07/02/19 07/02/19 Unknown History Eye Drop] - History of Present Illness-Neuro Nature of Presenting Problem: Called to CAT response on floor. Patient found to be with acute AMS. Nursing staff stated that she was found to be slumped over int he bed with more labored breathing and vomited up blood. They state she is admitted for UTI and AMS. Her baseline for the past week has been to mumble or say "hey girl". She has been on rocephin for the UTI. No family at bedside. She is a full code. Review of Systems - Adult - REVIEW OF SYSTEMS - ADULT ROS:: unobtainable per condition Constitutional: reports: see HPI Past History - Adult - PAST MEDICAL HISTORY-ADULT Review of Records: reports: Old Records Reviewed Major Childhood Illnesses: reports: denies history Cardiovascular: reports: HTN, hyperlipidemia Respiratory: reports: denies history Gastrointestinal: reports: denies history Obstetrical/Gynecological: reports: denies history Genitourinary: reports: denies history Musculoskeletal: reports: arthritis Neurological: reports: denies history Endocrine/Immune: reports: Diabetes Other Conditions: reports: denies history - PRIOR SURGERIES/PROCEDURES Surgical/Procedure History: reports: reviewed, not pertinent, other (lumpectomy) - IMMUNIZATION STATUS Childhood Immunizations: See Nurse Assessment Flu Vaccine: See Nurse Assessment - FAMILY HISTORY Family History: reviewed, not pertinent, other (not contributory) Physical Exam- Neurological - Physical Exam-Neuro Initial Vital Signs Reviewed: Yes General Appearance: moderate distress, obese, other (slumped over in bed on NRB with large blood stain on towel near her mouth) Eye Exam: bilateral eye: other (severe cataract on right, constricted pupil on left) HENMT: normocephalic/atraumatic, moist mucous membranes Head Injury: no evidence of injury Neck: supple Respiratory: respiratory distress, decreased breath sounds, crackles, increased rate Cardiovascular: normal peripheral pulses, no murmur, tachycardia Abdominal Exam: normal bowel sounds, non tender, soft 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 Exam: other (unable to complte full neuro exam due to patient cooperation but no gross deficits) Integumentary: normal color, warm/dry Psych/Mental Status: disoriented x 3 - Glascow Coma Scale Best Eye Response: (3) open to voice Best Verbal Response: (4) confused conversation Best Motor Response: (5) localizes to pain Total Glascow Score: 12 Progress - PLAN OF CARE/RESULTS Progress/Plan/Lab Results: Orders Category Date Time Status Admit - [facility] Routine AdmDCTranf 06/29/19 21:33 Active Admit Patient To Inpatient Status Routine AdmDCTranf 07/01/19 11:42 Active Activity - Strict Bedrest ORDERED Care 06/29/19 21:33 Completed Contraindications to Flu vacci [QM] AT DISCHARGE Care 06/30/19 00:08 Completed Does patient desire to be vacc [QM] ONCE Care 06/30/19 00:09 Completed FSBS/Accucheck Result AC + HS Care 06/30/19 13:48 Active FSBS/Accucheck Result NOW Care 06/29/19 19:08 Completed Garcia Cath Insertion ORDERED Care 06/29/19 19:47 Completed Neurological Check Q4H Care 06/29/19 21:36 Completed Previous Flu Vaccine THIS SEAS [QM] ONCE Care 06/30/19 00:09 Completed Resuscitation Status Routine Care 06/29/19 21:33 Ordered Saline Loc DIRECTED Care 06/29/19 19:09 Completed Vital Signs Order Q 4-HR ASSESS Care 06/29/19 21:33 Active Z-Document. for Tele Applied ORDERED Care 06/29/19 21:35 Completed Social Service Consult Routine Cons 06/30/19 09:19 Active NPO Diet 06/29/19 19:09 Completed CHEST-PORTABLE [RAD] Stat Exams 06/29/19 19:[address] HEAD W/O CONTRAST [CT] Stat Exams 06/29/19 19:10 Completed ABG [RESP] Routine Lab 06/29/19 19:17 Completed BLOOD CULTURE [BLDCUL] Stat Lab 06/29/19 20:10 Completed CBC WITH ELECTRONIC DIFF [HEME] Stat Lab 06/29/19 20:08 Completed CBC WITH NO DIFF [HEME] Routine Lab 07/02/19 05:47 Completed CMP [COMPREHENSIVE METABOLIC PANEL] [CHEM] Stat Lab 06/30/19 09:35 Completed COMPREHENSIVE METABOLIC PANEL [CHEM] Routine Lab 07/02/19 05:47 Completed COMPREHENSIVE METABOLIC PANEL [CHEM] Stat Lab 06/29/19 20:08 Completed LIPASE [CHEM] Stat Lab 06/29/19 20:08 Completed MAGNESIUM [CHEM] Routine Lab 07/02/19 05:47 Completed MAGNESIUM [CHEM] Stat Lab 06/30/19 09:35 Completed PT [PROTIME WITH INR] [COAG] Stat Lab 06/29/19 20:08 Completed TROPONIN T Stat Lab 06/29/19 20:[address] W/POSS RFLX CULT [URINALYSIS] Stat Lab 06/30/19 02:00 Completed URINE CULTURE [RM] Routine Lab 06/30/19 02:00 Completed 0.9% Sodium Chloride Inj [Ns] 1,000 ml Med 06/29/19 21:12 Discontinued IV 100 mls/hr 0.9% Sodium Chloride Inj [Ns] 1,000 ml Med 06/29/19 21:33 Discontinued IV 125 mls/hr 0.9% Sodium Chloride Inj [Ns] 1,000 ml Med 06/30/19 08:45 Discontinued IV 75 mls/hr 0.9% Sodium Chloride Inj [Ns] 1,000 ml Med 06/29/19 21:32 Discontinued IV 999 mls/hr 0.9% Sodium Chloride Inj [Ns] 1,000 ml Med 06/29/19 23:09 Discontinued IV 999 mls/hr Amlodipine [Norvasc] Med 07/01/19 09:00 Discontinued 10 mg PO DAILY Insulin Lispro ([place]) [Humalog ([place])] Med 06/30/19 16:00 Discontinued See Protocol SUBQ 0700,1100,1600,2100 Lorazepam [Ativan] Med 06/30/19 09:21 Discontinued 0.5 mg IV Q8H PRN PRN Lorazepam [Ativan] Med 06/29/19 20:52 Discontinued 1 mg IV NOW ONE Magnesium Sulfate 2 gm/S.w.i. Med 07/01/19 06:52 Discontinued 2 gm in 50 ml IV NOW Magnesium Sulfate 4 gm/S.w.i. [Magnesium Sulfate 4 gm/S Med 06/30/19 14:11 Discontinued .w.i] 4 gm in 100 ml IV NOW Omeprazole [Prilosec] Med 07/01/19 07:00 Discontinued 40 mg PO DAILY@0700 Ondansetron [Zofran] Med 06/29/19 21:33 Discontinued 4 mg IV Q4H PRN PRN Pioglitazone [Actos] Med 07/01/19 09:00 Discontinued 30 mg PO DAILY Piperacillin/Tazobactam [Zosyn] 2.25 gm Med 07/01/19 12:00 Discontinued 0.9% Sodium Chloride Inj [Ns] 50 ml IV Q6H Piperacillin/Tazobactam [Zosyn] 3.375 gm Med 06/29/19 21:21 Discontinued 0.9% Sodium Chloride Inj [Ns] 50 ml IV NOW Piperacillin/Tazobactam [Zosyn] 3.375 gm Med 06/29/19 22:00 Discontinued 0.9% Sodium Chloride Inj [Ns] 50 ml IV Q6H Potassium Chloride E.r. [Klor-Con] Med 07/01/19 09:00 Discontinued 20 meq PO DAILY Potassium Chloride E.r. [Klor-Con] Med 06/30/19 13:47 Discontinued 40 meq PO NOW ONE Potassium Chloride E.r. [Klor-Con] Med 07/01/19 06:52 Discontinued 40 meq PO NOW ONE Trazodone [Desyrel] Med 06/30/19 21:00 Discontinued 150 mg PO HS Telemetry [OM.EQ] Routine Oth 06/29/19 21:33 Active EKG [EKG] Stat Ther 06/29/19 20:58 Draft Physical Therapy Eval/Treatment [OM.PT] Routine Ther 06/30/19 09:20 Active Transfer/Admit Order [TRANSFER] Routine Transfer 06/29/19 21:37 Completed Called to CAT call and initially she was not responsive to even painful stimuli. We prepped to intubate her as her SpO2 was 87% on NRB and she appeared initially to not be able to maintain her airway. GLucose check was found to be in the 200s. Her BP was slightly hypertensive and she was tachycardic. While we were gathering things to intubate patient began becoming more responsive and responsing to her name by saying what. Nursing staff noted that these responses have seemed to be more consistent which was she has been doing although her breathing was still more labored. ABG was obtained and was noted to be a mixed sample. I feel that if we intubate her she will be difficult to come off vent. We attempted bipap and patient tolerated well. Her SpO2 remained 100%. Labs were repeated. Her Hgb is low but not acutely a huge drop from her prior. Possible aspiration o we broadened her antibiotic coverage to Vanc and zosyn as she has only been on rocephin during this admission. She has a Cr to 2.0 which is consistent with her prior Cr so we cannot obtain CTA chest to rule out PE but given taht she vomited up the blood and we cannot rule out GI bleed we will hold off on any additional blood thinner. She remained in the ED overnight and we continued to manage her as there was no ICU bed available. I spoke to Dr Dasilva, hospitalist at [facility] because ICU at [facility] is closed. Since she is on bipap she might have been a candidate for step down unit. Dr dasilva spoke to household coordinator and felt she needs to be in the ICU so she remained here in the ED. Spoke to Dr Cox around 6am and he agreed. Transfer orders were placed for ICU [facility]. Pending bed assignment. Result Diagrams: 07/06/19 07:52 07/06/19 18:40 - XRAY 1 XRAY Study: Chest Comparison with other Films: changes noted (improved) Departure - Departure Date of Disposition Decision: 07/06/19 Time of Disposition Decision: 04:27 DIAGNOSIS: AMS (altered mental status), Hypoxia, Respiratory distress, Hemoptysis Disposition: ADMITTED INPATIENT 09 Certified Medical Emergency: Emergent Condition: Critical - Critical Care Note This patient required my direct & personal management of CC.: Yes Total Time (mins): 125 Critical Care Statement: This patient required my direct personal management to treat or rule out processes, the absence of which, could potentiallly result in sudden, clinically significant life or limb threatening deterioration. Attestation - Physician/ JAILENE Attestation Patient care was provided by Advanced Practice Provider:: No The physician spent face to face time with patient:: Yes Advanced Practice Provider documentation review:: Supervising physician onsite and consulted in the evaluation and care of this patient. The physician did have a face to face encounter with the patient.
[2019-07-06 00:45] LABS: BE -7.3 mmoll (-3.0-3.0); BLOOD TYPE ARTERIAL; HCO3-(ACT) 19.2 mmoll (20.0-26.0); METHB 1.7 % (0.0-1.5); O2(CT) 12.7 mL/dL (15.0-23.0); O2HB 96.6 % (95.0-99.0); PCO2(98.6) 23 mmHg (35-45); PO2(98.6) 235 mmHg (60-100); SAMPLE BLOOD; SAO2 100.1 % (95.0-100.0); THB 8.9 g/dL (11.5-17.4); pH(98.6) 7.44 (7.35-7.45)
[2019-07-06 00:49] LABS: ALLEN TEST YES; MODALITY BI PAP
[2019-07-06 00:52] LABS: PO2(98.6) 32 mmHg (60-100)
[2019-07-06 00:53] LABS: MODALITY NRB; O2HB 56.3 % (95.0-99.0)
[2019-07-06 00:54] LABS: ALLEN TEST NO
[2019-07-06 01:07] LABS: BASO# 0.01 X1000 (0.0-0.2); BASO% 0.1 % (0.0-0.8); EOS# 0.01 X1000 (0.0-0.7); EOS% 0.1 % (0.0-10.0); HEMATOCRIT 27.4 % (37.0-47.0); HEMOGLOBIN 8.9 g/dL (12.0-16.0); IMM GRAN# 0.15 X1000 (0.0-0.04); IMM GRAN% 1.3 % (0.0-0.5); LYMPH# 1.52 X1000 (1.2-3.4); LYMPH% 12.7 % (20.5-51.1); MCH 29.5 PG (27-31); MCHC 32.5 g/dL (33-37); MCV 90.7 FL (81-99); MONO# 0.43 X1000 (0.11-0.59); MONO% 3.6 % (1.7-9.3); MPV 10.4 FL (7.4-10.4); NEUT# 9.82 X1000 (1.4-6.5); NEUT% 82.2 % (42.2-75.2); PLT 157 X1000 (130-400); RBC 3.02 XMIL (4.2-5.4); RDW 15.5 % (11.5-14.5); WBC 11.94 X1000 (4.8-10.8)
[2019-07-06 01:22] LABS: ALBUMIN 3.1 g/dL (3.5-5.0); CALCIUM 9.2 mg/dL (8.8-10.2); CREATININE 2.2 mg/dL (0.5-0.9); POTASSIUM 5.1 mmol/L (3.5-5.1); TOTAL BILIRUBIN 0.3 mg/dL (0.20-1.00); TOTAL PROTEIN 5.6 g/dL (6.3-8.3)
[2019-07-06] MEDS ORDERED: VANCOMYCIN 1 GM/NS 1 GM/250 ML IVPB ONE ×2 (02:59)
[2019-07-06 05:05] LABS: BASO# 0.01 X1000 (0.0-0.2); BASO% 0.1 % (0.0-0.8); HEMATOCRIT 26.4 % (37.0-47.0); HEMOGLOBIN 8.5 g/dL (12.0-16.0); IMM GRAN# 0.12 X1000 (0.0-0.04); IMM GRAN% 1.1 % (0.0-0.5); LYMPH# 0.82 X1000 (1.2-3.4); LYMPH% 7.5 % (20.5-51.1); MCH 28.4 PG (27-31); MCHC 32.2 g/dL (33-37); MCV 88.3 FL (81-99); MONO# 0.29 X1000 (0.11-0.59); MONO% 2.7 % (1.7-9.3); MPV 10.4 FL (7.4-10.4); NEUT# 9.68 X1000 (1.4-6.5); NEUT% 88.6 % (42.2-75.2); PLT 158 X1000 (130-400); RBC 2.99 XMIL (4.2-5.4); RDW 15.4 % (11.5-14.5); WBC 10.92 X1000 (4.8-10.8)
[2019-07-06 05:13] LABS: INR 1.08; PROTIME 14.6 Seconds (11.0-16.0)
[2019-07-06 05:14] LABS: PTT 28.1 Seconds (22.3-41.8)
[2019-07-06 05:15] LABS: CALCIUM 9.4 mg/dL (8.8-10.2); CREATININE 2.3 mg/dL (0.5-0.9); POTASSIUM 5.3 mmol/L (3.5-5.1)
[2019-07-06] MEDS ORDERED: ZOSYN 2.25 GM in NS 50 ML IV SCH (06:00)
--- NOTE | 2019-07-06 06:20 | Diag Imaging Result Doc PS360 ---
EXAM: CHEST-PORTABLE HISTORY: For Post NG Insertion TECHNIQUE: Single view COMPARISON: 07/05/2019 FINDINGS: The lungs are well expanded. The patient is rotated to the right. No nasogastric tube in the esophagus. No cardiomegaly. No pulmonary. No pleural effusions identified. IMPRESSION: Mild interval improvement. Electronically signed by Pranav Espino 07/06/2019 6:18 AM
[2019-07-06] MEDS: CLINIMIX E 4.25%-5% SOLUTION 1,000 ML IV SCH ×2 (06:25→12:22)
--- NOTE | 2019-07-06 06:52 | Diag Imaging Result Doc PS360 ---
EXAM: CT HEAD W/O CONTRAST HISTORY: AMS TECHNIQUE: CT head without contrast COMPARISON: 06/29/2019 FINDINGS: Motion degrades image quality. No parenchymal hemorrhage. No epidural or subdural hematoma. There is mild atrophy. No subarachnoid hemorrhage. No mass identified on this noncontrasted exam. No hydrocephalus. No sinus opacification. IMPRESSION: No hemorrhage. Mild atrophy. A preliminary report was given at 1:48 AM This exam was performed using automated exposure control, adjustment of mA or kV according to patient size, and/or use of iterative reconstruction technique. Electronically signed by Pranav Espino 07/06/2019 6:50 AM
[2019-07-06] MEDS: PRILOSEC PO SCH (07:54)
[2019-07-06] MEDS: HUMALOG (PARKWAY) SUBQ SCH (08:09)
[2019-07-06 08:49] LABS: HEMATOCRIT 26.5 % (37.0-47.0); HEMOGLOBIN 8.5 g/dL (12.0-16.0)
--- NOTE | 2019-07-06 09:14 | ED EKG INTERP ---
This chart was entered by Maria Dolores Ramirez Scribe, acting as scribe for Dipesh Amin MD. EKG Interpretation - EKG Time of EKG reading by physician:: 08:54 EKG Read and Signed by:: Dipesh Amin EKG Interpretation (*Must complete 3 of following elements*): Abnormal Rate: 107 Rhythm: ssinus tachycardia with premature supraventricularcomplexes [place]: normal QRS: normal NV Interval: normal ST Wave: normal Comments: nonspecific T wave abnormlaity Attestation - Physician/ JAILENE Attestation Patient care was provided by Advanced Practice Provider:: No The physician spent face to face time with patient:: Yes Advanced Practice Provider documentation review:: Supervising physician onsite and consulted in the evaluation and care of this patient. The physician did have a face to face encounter with the patient. This chart was documented by the indicated scribe, (Maria Dolores Ramirez Scribe) and accurately reflects the services I performed and decisions made by me, Dipesh Amin MD, as attested by the provider's signature.
--- NOTE | 2019-07-06 09:14 | EKG Report ---
Test Performed on : 07/06/2019 08:54:06 AM Test Reason : ams Blood Pressure : / mmHG Vent. Rate : 107 BPM Atrial Rate : 107 BPM P-R Int : 134 ms QRS Dur : 086 ms QT Int : 350 ms P-R-T Axes : 059 054 138 degrees QTc Int : 467 ms Sinus tachycardia. with premature supraventricular complexes. Nonspecific T wave abnormality Abnormal ECG When compared with ECG of 29-JUN-2019 21:47, (Unconfirmed) Previous ECG has undetermined rhythm, needs review Nonspecific T wave abnormality now evident in Inferior leads Unconfirmed Result
[2019-07-06] MEDS ORDERED: PROTONIX 80 MG in NS 80 ML IV SCH (10:00)
[2019-07-06 10:19] LABS: BE -8.5 mmoll (-3.0-3.0); BLOOD TYPE ARTERIAL; HCO3-(ACT) 18.3 mmoll (20.0-26.0); METHB 2.4 % (0.0-1.5); O2(CT) 15.3 mL/dL (15.0-23.0); O2HB 95.5 % (95.0-99.0); PO2(98.6) 189 mmHg (60-100); SAMPLE BLOOD; SAO2 99.2 % (95.0-100.0); THB 11.1 g/dL (11.5-17.4); pH(98.6) 7.47 (7.35-7.45)
[2019-07-06 10:23] LABS: ALLEN TEST YES; MODALITY BI PAP; PCO2(98.6) 18 mmHg (35-45)
[2019-07-06 10:29] LABS: URINE SOURCE CATH
[2019-07-06 10:39] LABS: BILIRUBIN URINE NEGATIVE (NEGATIVE); BLOOD URINE 4+ (NEGATIVE); KETONE URINE TRACE mg/dL (NEGATIVE); LEUKOCYTES URINE 2+ (NEGATIVE); NITRITE URINE NEGATIVE (NEGATIVE); PROTEIN URINE TRACE mg/dL (NEGATIVE); UROBILINOGEN URINE NORMAL
[2019-07-06 10:40] LABS: CLARITY CLEAR (CLEAR); COLOR YELLOW
[2019-07-06] MEDS ORDERED: GEODON IM PRN (10:40)
[2019-07-06] MEDS ORDERED: STERILE WATER INJ. INJ PRN (10:42)
[2019-07-06] MEDS ORDERED: ZOFRAN IV PRN (10:43)
[2019-07-06 10:44] LABS: UR AMPHETAMINES QUAL NONE DETECTED (NONE DETECT); UR BARBITUATES QUAL NONE DETECTED (NONE DETECT); UR BENZODIAZEPIN QUAL PRESUMPTIVE POSITIVE (NONE DETECT); UR CANNABINOIDS QUAL NONE DETECTED (NONE DETECT); UR COCAINE QUAL NONE DETECTED (NONE DETECT); UR METHADONE QUAL NONE DETECTED (NONE DETECT); UR METHAMPHETAMINE QUAL NONE DETECTED (NONE DETECT); UR OPIATES QUAL NONE DETECTED (NONE DETECT); UR OXYCODONE QUAL NONE DETECTED (NONE DETECT); UR PCP QUAL NONE DETECTED (NONE DETECT); UR PROPOXYPHENE QUAL NONE DETECTED (NONE DETECT); UR TCA QUAL NONE DETECTED (NONE DETECT)
[2019-07-06 11:02] LABS: URINE BACTERIA 2+ /HFP; URINE CAST NONE SEEN /LPF; URINE EPITHELIAL CELLS >10 /HPF (<10); URINE RBC 20-40 /HPF (<10); URINE SMALL ROUND CELLS RENAL PRESENT; URINE WBC 20-40 /HPF (<10); URINE YEAST NONE SEEN /HPF
--- NOTE | 2019-07-06 12:21 | Diag Imaging Result Doc PS360 ---
EXAM: CHEST-PORTABLE HISTORY: resp failure TECHNIQUE: Single view COMPARISON: 12:24 AM FINDINGS: The lungs are well expanded. The heart is not enlarged. The vessels are not distended. There are no infiltrates. No effusion identified. IMPRESSION: Negative exam. Electronically signed by Pranav Espino 07/06/2019 12:18 PM
[2019-07-06] MEDS: PROTONIX 80 MG in NS 80 ML IV SCH ×2 (12:22→20:24)
[2019-07-06] MEDS: HUMALOG SUBQ SCH ×3 (12:25→22:04)
[2019-07-06 14:26] LABS: ALLEN TEST NO; BLOOD TYPE ARTERIAL; METHB 1.3 % (0.0-1.5); O2HB 97.1 % (95.0-99.0); PO2(98.6) 170 mmHg (60-100); SAMPLE BLOOD; SAO2 99.5 % (95.0-100.0); THB 10.7 g/dL (11.5-17.4); pH(98.6) 7.53 (7.35-7.45)
[2019-07-06 14:28] LABS: MODALITY BI PAP
[2019-07-06 14:29] LABS: PCO2(98.6) 19 mmHg (35-45)
[2019-07-06] MEDS ORDERED: KEPPRA 1,000 MG in NS 100 ML IV ONE (15:06)
[2019-07-06 15:08] LABS: HEMOGLOBIN A1C 6.1 % (4.8-6.0)
[2019-07-06] MEDS ORDERED: ATIVAN ONE (15:15)
--- NOTE | 2019-07-06 15:24 | PROGRESS NOTE ---
DATE: 07/06/2019 SUBJECTIVE: The patient had an eventful night. She became I think unresponsive and there was some documentation that she stopped breathing. She had blood coming out of her nose and mouth. Cat call was done. The patient was transferred to the ED until ICU bed. There was some concern at that point that the patient had aspirated. She may have an upper gastrointestinal bleed. There was some concern that we would attempt to intubate the patient, but did not have to do that. She responded well to BiPAP. Head CT was maintained and she was going to be transferred to ICU across [facility], but no ICU bed was obtained. The patient this morning is more responsive, but still altered. She is on BiPAP, satting 100% on 40%, a little bit tachycardic, a little bit hypertensive. She has not had fever. Her x-rays really have been unremarkable, although I do not have an x-ray today, but she does have dry blood on her gown and looks like maybe even dark blood, which may be coffee-grounds. In any case, patient is I believe having at least an upper gastrointestinal bleed and will be transferred to another facility. OBJECTIVE: Vital Signs: Blood pressure is 161/78, heart rate 109, respiratory 24, temperature 98 degrees. Cardiovascular: Regular rate and rhythm. Pulmonary: Bilateral breath sounds. Clear to auscultation. GI: Soft, nontender, nondistended. Bowel sounds are positive. LABORATORY DATA: White count is 10, hemoglobin and hematocrit is 8 and 26, which is a slow drift from previous, but it is not a big drop there. White count is only 10.9, platelets are normal. Her blood gas showed a pH 7.47, pCO2 18, PaO2 189, that was on 40%. Her BUN has jumped up to 60 and her creatinine is 2.2, which is close to her baseline. Blood sugars are 200. ProBNP is elevated to 878. Her troponin was negative. Urine was negative. Urine drug screen was positive for benzodiazepines, but she has had Ativan in the last 24 hours. PROBLEM LIST: 1. Acute respiratory failure, possibly an aspiration event versus institutional acquired pneumonia. She is on BiPAP. I think she needs pulmonary evaluation. I do not think at this point we will need to progress towards mechanical ventilation, but we will see how things are looking. Continue pulmonary toilet and follow. 2. Upper gastrointestinal bleed. I have made her n.p.o. Apparently I think she has had a stricture which was due for dilation, but she refused admission last time and I do not think she had anything done since that time because she was not participating in trying to get that corrected. I think they were going to try to do a colonoscopy, but she could not tolerate the prep. She just kept on throwing it up. So I do think she will need an EGD. I have started a Protonix drip and we will follow. GI will be consulted another reason for transfer. 3. Protein calorie malnutrition. She is on Clinimix. 4. Acute on chronic renal failure. BUN was increasing, so we will continue to follow. The increase in BUN I am suspicious is probably related to the upper gastrointestinal bleed, but we will see. 5. Encephalopathy. Still do not have a great explanation. Neurology is following. MRI was negative. EEG was negative. We will just kind of keep a very close eye on that. Her family says she is a little bit more alert today than she was previously, but we will continue to monitor. I have discussed the case with Dr. Finn, who will assume care, and we will continue to follow. cc: MD Marcus Chowdhury MD
[2019-07-06] MEDS: ZOSYN 2.25 GM in NS 50 ML IV SCH ×2 (16:27→19:32)
--- NOTE | 2019-07-06 18:27 | Diag Imaging Result Doc PS360 ---
EXAM: CT C-SPINE/T-SPINE W/O CONTRAS - 07/06/2019 HISTORY: weakness TECHNIQUE: CT cervical/thoracic spine without contrast COMPARISON: 09/11/2018 CT cervical spine without contrast FINDINGS: CT cervical spine: There are artifacts from motion which limit detail. There is a posterior C3-4 disc protrusion which produces mild spinal stenosis. There is posterior disc protrusion with osteophyte which produces mild spinal stenosis at C6-7. There is degenerative narrowing of the left C3-4, bilateral C4-5, bilateral C5-6, and right C6-7 facets. There are prominent anterior osteophytes at C4-5, C5-6, and C6-7. There is no fracture or subluxation identified. CT thoracic spine: There are multilevel anterior and lateral bridging osteophytes at the mid and lower thoracic spine. There is no fracture or subluxation identified. There are medium right and small left pleural effusions noted. There is apparent hiatal hernia, the esophagus appears mildly distended with fluid. IMPRESSION: CT cervical spine: Posterior disc protrusion which produces mild spinal stenosis at C3-4. Degenerative changes with mild spinal stenosis at C6-7. Multilevel degenerative neural foraminal stenosis. No evidence of fracture or subluxation. CT thoracic spine: Multilevel anterior and lateral bridging osteophytes at mid and lower thoracic spine. No evidence of fracture or subluxation. This exam was performed using automated exposure control, adjustment of mA or kV according to patient size, and/or use of iterative reconstruction technique. Electronically signed by Sony Cisneros 07/06/2019 6:24 PM
[2019-07-06] MEDS ORDERED: MIRALAX PO ONE (18:47)
[2019-07-06] MEDS: VANCOMYCIN 1 GM/NS 1 GM/250 ML IVPB IV SCH (20:04)
[2019-07-06] MEDS: DULCOLAX PR SCH (20:16)
--- NOTE | 2019-07-06 20:23 | Diag Imaging Result Doc PS360 ---
EXAM: CHEST/ABD TUBE PLACEMENT - 07/06/2019 HISTORY: verify NG tube placement TECHNIQUE: Normal exam for nasogastric tube placement COMPARISON: 07/05/2019 supine and upright abdomen FINDINGS: The tip of the nasogastric tube is at the expected location of the mid stomach. There is mild gaseous distention of multiple small bowel loops noted. IMPRESSION: Tip of nasogastric tube at mid stomach. Electronically signed by Sony Cisneros 07/06/2019 8:20 PM
[2019-07-06] MEDS: FOLIC ACID 5 MG in NS 50 ML IV SCH (21:24)
[2019-07-06] MEDS: MIRALAX NG SCH (21:36)
[2019-07-06] MEDS: XALATAN 0.005% OPH SOLN LEFT EYE SCH (21:53)
--- NOTE | 2019-07-06 23:14 | GASTROENTEROLOGY CONSULTATION ---
DATE: 07/06/2019 ATTENDING PHYSICIAN: Dr. Marcus Finn. REASON FOR CONSULTATION: Gastrointestinal bleed. HISTORY OF PRESENT ILLNESS: Ms. Murillo is a 78-year-old female who was admitted on 06/29/2019 for weakness, urinary incontinence and agitation. She has known history of chronic kidney disease, diabetes mellitus, diverticulosis and peripheral arterial disease in her iliac system. She was diagnosed with a UTI during this admission and was undergoing treatment with antibiotics. She was also noted to have acute kidney injury on top of chronic kidney disease, which was being treated per the primary care team. During the hospital course patient had episode of unresponsiveness. A CAT call was called, there was a question of aspiration. She responded well to BiPAP and there were some stains of dark blood on down which were thought to be coffee-grounds emesis. The patient was minimally responsive and did not answer any of my questions during the interview. I spoke to the patient's two daughters at bedside. The daughters are very attentive and they explained to me that patient has not moved her bowels the last 6 days, and patient has had a last colonoscopy 5 years ago, which they were told by Dr. Sims that she had diverticulosis. PAST MEDICAL HISTORY: Chronic kidney disease stage 2, diabetes mellitus, diverticulosis, hypertension, hyperlipidemia. FAMILY HISTORY: Hypertension, heart disease. SOCIAL HISTORY: She lives with family. No history of alcohol or smoking. ALLERGIES: No known drug allergies. MEDICATIONS IN THE HOSPITAL: 1. Clinimix 70 mg per hour. 2. Dulcolax 10 mg per rectal b.i.d. 3. Folic acid IV once daily. 4. Humalog sliding scale. 5. Latanoprost in the left eye. 6. Zofran 4 mg IV every 4 hours. 7. Protonix 10 per hour drip. 8. Zosyn 2.25 g IV q.6 hours. 9. Potassium chloride 20 mg once daily. 10. Vancomycin given 1 g every 12 hours. The patient is currently NPO except medication. The patient is getting ready to have a CT of the C-spine and T-spine per Dr. Finn. REVIEW OF SYSTEMS: The patient is minimally communicative. She does respond to her name but does not answer any questions. All history was obtained from the patient's family and the records. PHYSICAL EXAMINATION: Vital signs: Temperature 98.9 degrees, pulse 105, respiratory rate 20, blood pressure 170/94. Saturating 100% on BiPAP 35% FiO2. Body weight of 194 pounds 4 ounces. BMI of 34.4 kg/m2. General: Patient is obese, lying in bed, currently in no acute distress. HEENT: Positive pallor. No icterus. Nasal cannula in place. Neck: Supple. Abdomen: Obese. Mild distention noted. No rebound. No guarding. Extremities: No cyanosis, clubbing. Neurologic: She responds to her name but was not able to answer any questions. LABS: Hemoglobin and hematocrit is 8.5 and 26.5, white count of 10.92, platelet count of 158,000. ABG showing pH of 7.53, pCO2 of 19, PO2 170, this is on BiPAP at 35% FiO2. Sodium 140, potassium 5.1, chloride 117, bicarb of 10, anion gap of 13, BUN of 60, creatinine 2.2. Glucose of 202, calcium 9.2, total bilirubin 0.3, AST 22, ALT 20, alkaline phosphatase 89, total protein 5.6, albumin 3.1. ProBNP 878, lactate of 2.5. Urinalysis positive white cells. RPR nonreactive. TRI is negative. Chest x-ray done today showed negative exams. Head CT done showed no hemorrhage, mild atrophy. Abdominal x-ray done yesterday showed constipation, stool throughout the colon. IMPRESSION AND PLAN: 1. Constipation. 2. Urinary tract infection. 3. Encephalopathy. 4. Chronic renal failure. 5. Malnutrition. 6. Gastrointestinal bleed possible with coffee-ground stains on her gown. 7. Anemia. RECOMMENDATIONS: We will keep her on Protonix drip for now. She is getting ready for CT of the C- spine and T-spine. It the CT is negative then we can pursue with the NG tube insertion and start her on MiraLAX twice daily. We may have to start her on GoLYTELY, as patient appears to have constipation and stool throughout the colon. She will continue on IV Clinimix for nutrition and she will continue on Dulcolax as well for constipation. She will continue Humalog sliding scale for diabetes. She is on antibiotics with vancomycin and Zosyn for presumed sepsis. She has metabolic acidosis, high lactate and low bicarb, this will need to be repeated in the morning. If she persists to have metabolic acidosis, then we will have to obtain a CT of the abdomen and pelvis as well to evaluate for any kind of bowel ischemia. The above plan of care was discussed with the patient and the patient's family at bedside. All questions answered. We will follow along. Please call us with any further questions. cc: MD Marcus Webber MD MTDD
[2019-07-07] MEDS: CLINIMIX E 4.25%-5% SOLUTION 1,000 ML IV SCH ×2 (00:52→15:05)
[2019-07-07] MEDS: ZOSYN 2.25 GM in NS 50 ML IV SCH ×4 (01:15→19:26)
[2019-07-07] MEDS: HUMALOG SUBQ SCH ×7 (01:29→22:06)
--- NOTE | 2019-07-07 03:40 | PULMONOLOGY CONSULTATION ---
DATE: 07/06/2019 REASON FOR CONSULTATION: Respiratory failure. HISTORY OF PRESENT ILLNESS: Ms. Murillo is a 78-year-old black female with a greater than 60 pack- year history for tobacco who has had multiple visits to our hospital which started at the beginning of May. She initially presented with shortness of breath and cough with white sputum production and was diagnosed with acute bronchitis. She returned the following day with the chief complaint of vomiting blood, but she left without being seen. On 06/01/2019, she returned with the diagnosis of nausea and vomiting with blood in her emesis. She underwent a CT scan of the abdomen 06/13/2019 which revealed a small hiatal hernia, but no definite pathology. She was admitted to the hospital for dehydration on 06/13/2019 but left against medical advice. She returned to the ER on 06/29/2019 with increasing weakness. She was admitted to the hospital for altered mental status. MRI was performed which did not reveal acute anatomic abnormality. She was evaluated by Dr. Almazan and an EEG was performed which revealed mild generalized slowing. The patient was at the [facility] facility and last evening her mental status became decreased and she was noted to have blood in her mouth and coming out her nose. Her oxygen requirements increased and her mental status improved. She was transferred to this facility. Her oxygen requirements have declined and she is back on nasal cannula. She is awake and appears agitated but does not follow commands. PAST MEDICAL HISTORY: 1. Diabetes mellitus. 2. Diverticulosis. 3. Chronic trazodone use. I have had difficulty confirming her last dose. 4. Dyslipidemia. SOCIAL HISTORY: The patient has a [id number] history for tobacco. No alcohol use listed. FAMILY HISTORY: Positive for heart disease and hypertension. REVIEW OF SYSTEMS: Difficult to perform. PHYSICAL EXAMINATION: General: Reveals a well-developed, well-nourished female who appears to be maintaining her airway. She has excess salivation with some dried secretions on her mouth. Oropharynx without overt lesions. Neck: Supple. Chest: Reveals good air entry with occasional rhonchi. Cardiac: Regular rate. Normal S1, normal S2. Abdomen: Soft. Extremities: Without edema. LABORATORIES: White blood count 10.92, hemoglobin 8.5, platelet count 158,000. Arterial blood gas, pH 7.53, pCO2 of 19, PO2 of 170. IMPRESSION: A 78-year-old with: 1. Hemoptysis or hematemesis. 2. Acute hypoxemic respiratory failure. 3. History of tobacco use. 4. Encephalopathy. 5. Long history of trazodone use, unknown when patient had last dose. DISCUSSION: A 78-year-old with problems outlined above. The patient has had multiple issues beginning in May. The patient's last trazodone dose was filled at the end of March and therefore she would run out of this medicine toward the end of April. It is not clear if she is suffering from a serotonin withdrawal syndrome which usually resolves within a few weeks, but can last up to a year. The etiology of respiratory failure is likely due to aspiration of blood. It is not clear if this is from an oral source, GI source, or a pulmonary source. Clinically, she appears to be improving. RECOMMENDATIONS: 1. Continue oxygen and BiPAP if needed for hypoxemic respiratory failure. 2. Noncontrast CT scan of the thorax. 3. Consider reinstituting a lower dose of trazodone. This can be discussed between the hospitalist and the neurologist. 4. Overall prognosis is guarded. cc: MD Marcus Castro MD
[2019-07-07 05:43] LABS: ALLEN TEST YES; BE -8.3 mmoll (-3.0-3.0); BLOOD TYPE ARTERIAL; HCO3-(ACT) 18.5 mmoll (20.0-26.0); METHB 1.8 % (0.0-1.5); MODALITY CANNULA; O2(CT) 10.8 mL/dL (15.0-23.0); O2HB 95.7 % (95.0-99.0); PCO2(98.6) 25 mmHg (35-45); PO2(98.6) 107 mmHg (60-100); SAMPLE BLOOD; SAO2 98.8 % (95.0-100.0); THB 7.9 g/dL (11.5-17.4)
--- NOTE | 2019-07-07 06:18 | Diag Imaging Result Doc PS360 ---
EXAM: CHEST-PORTABLE HISTORY: abnormal exam TECHNIQUE: Single view COMPARISON: 07/17/2019 FINDINGS: Poor inflammatory effort. The heart is mildly prominent and there is mild central vascular distention. No consolidation. No pleural effusions identified. There is a nasogastric tube in the stomach. IMPRESSION: Mild pulmonary edema Electronically signed by Pranav Espino 07/07/2019 6:15 AM
[2019-07-07 06:22] LABS: BASO# 0.02 X1000 (0.0-0.2); BASO% 0.2 % (0.0-0.8); HEMOGLOBIN 7.3 g/dL (12.0-16.0); IMM GRAN# 0.08 X1000 (0.0-0.04); IMM GRAN% 0.7 % (0.0-0.5); LYMPH# 1.98 X1000 (1.2-3.4); LYMPH% 17.3 % (20.5-51.1); MCH 29.3 PG (27-31); MCHC 33.2 g/dL (33-37); MCV 88.4 FL (81-99); MONO# 0.41 X1000 (0.11-0.59); MONO% 3.6 % (1.7-9.3); MPV 10.8 FL (7.4-10.4); NEUT# 8.93 X1000 (1.4-6.5); NEUT% 78.2 % (42.2-75.2); PLT 122 X1000 (130-400); RBC 2.49 XMIL (4.2-5.4); RDW 15.2 % (11.5-14.5); WBC 11.42 X1000 (4.8-10.8)
[2019-07-07] MEDS: PROTONIX 80 MG in NS 80 ML IV SCH ×2 (06:28→16:48)
[2019-07-07 06:43] LABS: INR 1.28; PROTIME 16.2 Seconds (11.0-16.0)
[2019-07-07 07:04] LABS: BANDS 2 % (0-1); LYMPHS 22 % (21-51); MONO 4 % (1-9); NRBC 1 % (0-0); SEGS 72 % (42-75)
[2019-07-07 07:05] LABS: CREATININE 3.5 mg/dL (0.5-0.9); HYPOCHROM 1+; POIKILOCYTOSIS 2+
[2019-07-07] MEDS ORDERED: KAYEXALATE NG ONE (07:26)
[2019-07-07] MEDS: DULCOLAX PR SCH ×2 (08:47→20:56)
[2019-07-07] MEDS: MIRALAX NG SCH ×2 (08:48→20:56)
[2019-07-07] MEDS ORDERED: KLOR-CON PO SCH (09:00)
[2019-07-07 10:01] LABS: CALCIUM 9.3 mg/dL (8.8-10.2)
[2019-07-07] MEDS: VANCOMYCIN 1 GM/NS 1 GM/250 ML IVPB IV SCH ×2 (10:29→21:29)
--- NOTE | 2019-07-07 12:10 | GASTROENTEROLOGY PROGRESS NOTE ---
DATE: 07/07/2019 ADMITTING PHYSICIAN: Dr. Finn. SUBJECTIVE: The patient is currently resting in bed. Her family is present at the bedside. The patient appears to be drowsy and sleeping at the moment. She has encephalopathy, which is being worked up by primary care team. We have inserted an NG tube, which had put out about 100 mL of dark, coffee-colored stuff. She has been getting dulcolax suppository, but has not had a bowel movement yet. OBJECTIVE: Vital Signs: Temperature 98.2, pulse 106, respiratory rate 19, blood pressure 148/94, saturating 99% on 2 L nasal cannula. Body weight of 194 pounds 4 ounces. BMI of 34.4 kg/m. General Appearance: Obese, lying in bed in no acute distress. HEENT: Pale conjunctiva. No icterus. NG tube in place. Neck: Supple. Abdomen: Obese, soft, nondistended. No guarding. No rebound. Extremities: No cyanosis, clubbing. Neurologic: She is currently sleeping. IMAGING AND LABORATORY DATA: Hemoglobin and hematocrit are 7.3 and 22, white count of 11.42, platelet count of 122,000. INR 1.28, PT of 16.2. ABG showing pH of 7.40, pCO2 of 25, PO2 of 107 (this is on 28% FiO2). Sodium 141, potassium 6, chloride 112, bicarb of 12, anion gap of 17, BUN of 102, creatinine 3.5, glucose of 149, calcium is 9.3. ABG showing pH of 7.40 and lactate of 1.9, pCO2 of 25, PO2 of 107. Urine culture showed no growth. Blood cultures x2 were drawn yesterday, which are currently pending. Chest x-ray done this morning showed mild pulmonary edema. IMPRESSION AND PLAN: 1. Possible coffee ground in the nasogastric tube. 2. Acute hypoxic respiratory failure. 3. History of tobacco abuse. She quit about 2 months ago. 4. Encephalopathy. 5. Urinary tract infection. 6. Constipation. Last bowel more than 6 days ago. 7. Chronic renal failure. 8. Malnutrition. 9. Anemia. RECOMMENDATIONS: We will start her on MiraLAX twice daily through the NG tube. If this does not improve her symptoms, then we may have to start her on GoLYTELY gently through the NG tube. She is at high aspiration risk, so we need to keep her on aspiration precautions. Will continue Dulcolax suppository for constipation. She is on IV Clinimix for nutrition. She will continue Humalog sliding scale for diabetes. She is on antibiotics, vancomycin and Zosyn, for presumed sepsis. Blood counts are showing a downtrend, so we may have to transfuse as needed. She is showing a deterioration in her BUN and creatinine, and continues to have metabolic acidosis. This may have to be evaluated by Nephrology team, but we will leave it to the discretion of primary care team. The above plan of care was discussed with the patient and the patient's family at bedside. All questions were answered. Please call us with any further questions. cc: MD Marcus Webber MD Roger H. Moss Jr, MD MTDD
[2019-07-07] MEDS ORDERED: NS 500 ML ONE (13:20)
[2019-07-07] MEDS ORDERED: NS 250 ML ONE (13:27)
[2019-07-07 15:33] LABS: BASO# 0.02 X1000 (0.0-0.2); BASO% 0.2 % (0.0-0.8); HEMATOCRIT 20.5 % (37.0-47.0); HEMOGLOBIN 6.6 g/dL (12.0-16.0); IMM GRAN# 0.06 X1000 (0.0-0.04); IMM GRAN% 0.6 % (0.0-0.5); LYMPH# 1.32 X1000 (1.2-3.4); LYMPH% 13.7 % (20.5-51.1); MCH 28.2 PG (27-31); MCHC 32.2 g/dL (33-37); MCV 87.6 FL (81-99); MONO# 0.21 X1000 (0.11-0.59); MONO% 2.2 % (1.7-9.3); MPV 10.5 FL (7.4-10.4); NEUT% 83.3 % (42.2-75.2); PLT 99 X1000 (130-400); RBC 2.34 XMIL (4.2-5.4); WBC 9.61 X1000 (4.8-10.8)
--- NOTE | 2019-07-07 15:39 | PROGRESS NOTE ---
DATE: 07/07/[address] Palmer patient. Apparently transferred yesterday afternoon from [facility]. Rickey Elliszoe called me that CAT team was called and patient got vomit of blood, aspiration, placed on BiPAP and transferred to [facility]. I spend more than 1 hour in the PVC unit to gather the information. The patient was admitted on 06/30/2019 basically weakness, agitation, UTI. The patient was seen by Dr. Almazan. CT, MRI of brain were negative. According to the family, she is not ambulatory. There is no strength in both arms and both legs. She was on BiPAP when we got here. IV access is problematic. She had a brief seizure-like activity gave 1 dose of Keppra. She had a CT of the neck and thoracic spine. No obvious pathology noted. She can move both arms and both legs. She is responding slowly after the Ativan was weaned off. I appreciated consultants GI and Dr. Ware. PAST MEDICAL HISTORY: Reviewed. PAST SURGICAL HISTORY: Reviewed. MEDICINES: Reviewed. ALLERGIES: Not known. REVIEW OF SYSTEMS: Not able to move. Possible seizures and altered mental status. PHYSICAL EXAMINATION: Temperature is 98 degrees, pulse 106, blood pressure is stable. Currently she is off from the BiPAP. 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 Neck is supple. Bilateral air entry.Heart: Sounds are regular, tachycardic. Belly: Soft, nontender. Extremities: No edema. Motor. She is awake. No postictal somnolence noted and motor power 2/5 in all the extremities. Plantar is going down. LABS: This morning. White cell count 11, hematocrit 22, platelets 122,000. PT 16, INR 1.2. ABG, pH is 7.40, pCO2 25, PO2 107 on 28%. Sodium 140, potassium 6, BUN 102, creatinine 3.5, sugar is 327, calcium 9.3. Urine toxic screen was negative except benzodiazepines. TRI screen was negative. RPR nonreactive. B12 on the low side. Folate is low. Free T4 is normal. Vitamin B12 512. Plasma lactate 2.5. Chest x-ray, mild pulmonary edema. NG tube was in the mid stomach. CT of C-spine and T-spine posterior disk protrusion, mild stenosis C3-C4 and C6-C7. EKG, sinus tachycardia, nothing acute. ASSESSMENT AND PLAN: 1. Altered mental status, questionable seizure activity. Does not appear to be [place] seizure. One dose of Keppra was given. Ativan as needed. 2. Poor intravenous access peripherally inserted central catheter line. 3. Vomiting of blood. Gastroenterology consult was obtained. Hematocrit dropped to 22, elevated BUN. Transfuse 1 unit of packed RBC, IV PPI. Nasogastric tube was placed. 4. Chronic kidney disease, anemia, rule out multiple myeloma. Will ordered SPEP. 5. Right eye legally blind. 6. Vitamin D deficiency on replacement therapy with calcitriol. 7. Folic acid deficiency. IV folic acid. 8. Type 2 diabetes with chronic kidney disease with is on sliding scale with insulin coverage. 9. Deep vein thrombosis prophylaxis. No anticoagulation because of GI bleeding and will use the antithrombotic stockings. 10. Aspiration pneumonia. Dr. Ware is managing and patient is receiving IV Zosyn adjusted dose. 11. Hyperkalemia. Kayexalate was given. Repeat the CBC, SMA [address] at [address] Palmer is going to follow up. LEVEL OF DOCUMENTATION: 35 minutes. cc: Marcus Finn MD
[2019-07-07 16:00] LABS: LYMPHS 12 % (21-51); MONO 1 % (1-9); NRBC 3 % (0-0); SEGS 85 % (42-75)
[2019-07-07 16:03] LABS: POIKILOCYTOSIS 2+
[2019-07-07] MEDS ORDERED: LASIX IV ONE (17:12)
[2019-07-07] MEDS: FOLIC ACID 5 MG in NS 50 ML IV SCH (19:27)
--- NOTE | 2019-07-07 20:21 | Diag Imaging Result Doc PS360 ---
EXAM: CT THORAX W/O CONTRAST HISTORY: hemoptysis vs hematemesis TECHNIQUE: CT chest without contrast COMPARISON: None. FINDINGS: Poor inspiratory effort. Small bilateral pleural effusions. The heart is mildly enlarged and there is a tiny pericardial effusion. Prominent atherosclerosis. No aortic aneurysm. Multifocal bilateral infiltrates with air bronchograms in the lower lobes. There is a left-sided PICC line. IMPRESSION: Bilateral pneumonia with mild cardiomegaly and small pleural effusions This exam was performed using automated exposure control, adjustment of mA or kV according to patient size, and/or use of iterative reconstruction technique. Electronically signed by Pranav Espino 07/07/2019 8:19 PM
--- NOTE | 2019-07-07 20:39 | PULMONOLOGY PROGRESS NOTE ---
DATE: 07/07/2019 SUBJECTIVE: The patient opens her eyes to voice. She does not follow commands. She has no increased work of breathing. OBJECTIVE: Vital Signs: The patient has remained afebrile for the last 24 hours. Blood pressure 124/82, heart rate 108, respiratory rate 28, oxygen saturation 99% on 2 L. HEENT: Pupils are equal and reactive. Oropharynx appears clear. Neck: Supple. Chest: Reveals coarse rhonchi bilaterally. Cardiac exam: S1, S2. Abdomen: Soft. Extremities: Without edema. LABORATORIES: Chest x-ray reveals shallow inspiration making it difficult to evaluate the lung bases. White blood count 9.6, hemoglobin 6.6, platelet count 99,000. Chemistry. Sodium 141, potassium 6.0, chloride 112, bicarbonate 12, anion gap 17, BUN 102, creatinine 3.5. IMPRESSION: A 78-year-old with 1. Acute hypoxemic respiratory failure. 2. Pneumonia. 3. Hemoptysis versus hematemesis. 4. Encephalopathy with long history of trazodone use. 5. Hyperkalemia. RECOMMENDATIONS: 1. Discontinue potassium supplementation. 2. Begin baseline fluids. 3. Agree with GI consultation. 4. Ongoing neurology evaluation. 5. CT scan ordered at 6 o'clock this morning. Results still pending at 2 p.m. cc: MD Marcus Castro MD
[2019-07-07] MEDS: XALATAN 0.005% OPH SOLN LEFT EYE SCH (20:56)
[2019-07-08] MEDS: ZOSYN 2.25 GM in NS 50 ML IV SCH ×4 (01:57→20:03)
[2019-07-08] MEDS: HUMALOG SUBQ SCH ×7 (02:06→21:50)
[2019-07-08] MEDS: PROTONIX 80 MG in NS 80 ML IV SCH (02:08)
[2019-07-08 04:54] LABS: ALLEN TEST YES; BE -10.2 mmoll (-3.0-3.0); BLOOD TYPE ARTERIAL; HCO3-(ACT) 16.9 mmoll (20.0-26.0); METHB 1.6 % (0.0-1.5); O2(CT) 11.6 mL/dL (15.0-23.0); O2HB 92.8 % (95.0-99.0); PCO2(98.6) 23 mmHg (35-45); PO2(98.6) 68 mmHg (60-100); SAMPLE BLOOD; SAO2 95.9 % (95.0-100.0); THB 8.8 g/dL (11.5-17.4); pH(98.6) 7.38 (7.35-7.45)
[2019-07-08 04:55] LABS: MODALITY CANNULA
[2019-07-08] MEDS: CLINIMIX E 4.25%-5% SOLUTION 1,000 ML IV SCH ×3 (06:12→21:52)
[2019-07-08] MEDS: ROCALTROL PO SCH ×2 (08:27→08:30)
[2019-07-08] MEDS: MIRALAX NG SCH ×2 (08:27→20:03)
[2019-07-08] MEDS: DULCOLAX PR SCH ×3 (08:27→21:52)
[2019-07-08 09:00] LABS: BASO# 0.02 X1000 (0.0-0.2); BASO% 0.2 % (0.0-0.8); HEMATOCRIT 24.2 % (37.0-47.0); HEMOGLOBIN 8.1 g/dL (12.0-16.0); IMM GRAN# 0.12 X1000 (0.0-0.04); IMM GRAN% 1.3 % (0.0-0.5); LYMPH# 1.33 X1000 (1.2-3.4); LYMPH% 14.9 % (20.5-51.1); MCH 29.2 PG (27-31); MCHC 33.5 g/dL (33-37); MCV 87.4 FL (81-99); MONO# 0.33 X1000 (0.11-0.59); MONO% 3.7 % (1.7-9.3); NEUT# 7.14 X1000 (1.4-6.5); NEUT% 79.9 % (42.2-75.2); PLT 79 X1000 (130-400); RBC 2.77 XMIL (4.2-5.4); WBC 8.94 X1000 (4.8-10.8)
[2019-07-08] MEDS: VANCOMYCIN 1 GM/NS 1 GM/250 ML IVPB IV SCH ×2 (09:43→21:51)
[2019-07-08 09:44] LABS: LYMPHS 18 % (21-51); MONO 8 % (1-9); SEGS 72 % (42-75)
[2019-07-08 09:46] LABS: HYPOCHROM 1+; POIKILOCYTOSIS 2+
[2019-07-08 09:47] LABS: BURR CELLS 2+; SCHISTOCYTES OCCASIONAL
--- NOTE | 2019-07-08 09:52 | PROGRESS NOTE ---
DATE: 07/08/2019 SUBJECTIVE: The patient is unresponsive. She has her eyes open but will not answer questions. Does not even flinch with a sternal rub at this time. The patient had been admitted to [facility]. Had been having several visits to the emergency room over there and even was admitted and checked out AMA on at least a couple of occasions. She has not been keeping her appointments at my office on a regular basis. Apparently, came in with some behavior with altered mental status and found that she had a urinary tract infection. Thought that there might also be some seizures as she had some shaking behavior and she had been throwing up some blood. Actually each checked out before admission back a few weeks ago at [facility] after having this. She was finally admitted to [facility], was treated, and was getting worse, more respiratory problems, was transferred to [facility] this weekend after being admitted on 06/30/2019 to [facility]. She had already been seen over there by Dr. Almazan for her encephalopathy and altered mental status. It was felt that her breathing had gotten worse and that she may have aspirated. CT scan of the chest did show some bilateral pulmonary infiltrates. The chest x-ray does not show them very well. She has been on antibiotics, apparently has been on some BiPAP. MRI scan of the head showed some artifacts from motion with limited detail but mild chronic microvascular ischemic changes were seen. No visible acute intracranial abnormality. The patient also developed hyperkalemia and was treated. She has chronic renal disease. Her hemoglobin fell to 6.6. She was transfused. This morning, her hemoglobin is 8.1 with hematocrit of 24.2, so it has improved. Electrolytes have not come back. Blood gas shows a 7.38 pH, pCO2 of 23, PO2 of 68. Yesterday, she had a potassium of 6. I do not have her chemistry profile back at this morning. PHYSICAL EXAMINATION: Respirations are 27, pulse 97, temperature 97.6 degrees Fahrenheit, blood pressure 134/54, oxygen saturation on 2 L per nasal cannula is 95%. HEENT: She is normocephalic. Lungs have a few scattered rales anteriorly. Heart is regular rate and rhythm without murmurs, gallops, or friction rubs. Abdomen: Soft. Active bowel sounds. No organomegaly or tenderness. The patient is not very responsive neurologically. The patient is diabetic, has been on Actos, and she has taken amlodipine and Avapro for her blood pressure. She had been on trazodone and might have run out of that. There is some question of whether she has serotonin uptake inhibitor withdrawal or rebound phenomena. She also does have glaucoma and has eyedrops for that condition. ASSESSMENT: 1. Altered mental status with global encephalopathy. 2. Recent urinary tract infection. 3. Pneumonia. 4. Upper gastrointestinal bleed. 5. Questionable seizure history. 6. Secondary diagnoses of hypertension and diabetes. PLAN: We will continue to support. Guarded outcome. Appreciate help from all specialists. cc: Ming Palmer Jr, MD
[2019-07-08 09:54] LABS: ALB/GLOB RATIO 1.3; ALBUMIN 2.7 g/dL (3.5-5.0); CALCIUM 8.5 mg/dL (8.8-10.2); CREATININE 3.6 mg/dL (0.5-0.9); POTASSIUM 5.4 mmol/L (3.5-5.1); TOTAL BILIRUBIN 0.46 mg/dL (0.20-1.00); TOTAL PROTEIN 4.8 g/dL (6.3-8.3)
--- NOTE | 2019-07-08 10:57 | GASTROENTEROLOGY PROGRESS NOTE ---
DATE: 07/08/2019 SUBJECTIVE: Ms. Murillo is a 78-year-old female who is currently unresponsive. She is opening her eyes but rolling them upwards. Unable to assess the patient. I talked to the nurse and the nurse said that she has been the same since yesterday onwards. OBJECTIVE: Vital Signs: Temperature 97.6 degrees, pulse 97, respirations 27, blood pressure 131/54, oxygen saturation 95% on 2 L nasal cannula. The patient's weight is 194 pounds. BMI is 34.3 kg/m2. General: The patient is obese, lying in bed. Unable to assess patient. HEENT: Pale conjunctivae. No icterus. PERRL. NG tube in place. Neck: Supple. Lungs: Rapid shallow breathing, use of accessory muscles and tachypneic. Cardiovascular: Patient is tachycardic. Abdomen: Obese, soft, nondistended. Hypo active bowel sounds heard in all 4 quadrants. Extremities: No cyanosis, no clubbing, no edema, Pedal pulses 2+ present bilaterally. Neurologic: Unable to assess patient. She is not responsive. Labs: WBC 8.94, RBC 2.77, hemoglobin 8.1, hematocrit 24.2, platelet count is 79,000. PT 16.2, INR 1.28. Sodium 139, potassium 5.4, chloride 108, carbon dioxide 12, anion gap 19, BUN 121, creatinine 3.6, glucose 172, calcium 8.5. Total bilirubin 0.46, AST 15, ALT 16, alkaline phosphatase 120, albumin 2.7. The patient's urine culture showed no growth. Chest x-ray showed mild pulmonary edema. Chest CT showed bilateral pneumonia with mild cardiomegaly and small pleural effusions. IMPRESSION: 1. Coffee-grounds emesis in the nasogastric tube. 2. Acute hypoxic respiratory failure. 3. Encephalopathy. 4. Urinary tract infection. 5. Constipation. 6. Chronic renal failure. 7. Malnutrition. 8. Anemia. 9. History of tobacco abuse. 10. Diabetes. PLAN: The patient is being transferred to ICU for respiratory distress. The patient is currently receiving Clinimix for her nutrition. She is on IV Protonix 80 mg at 10 mL/hr for her GI bleed. She is also receiving IV folic acid daily. The patient is on antibiotics, Rocephin and vancomycin for her UTI. For her bowel regimen, she is on Dulcolax suppository 10 mg twice a day, MiraLAX 17 g through NG tube twice a day. The patient is currently receiving Humalog per PCP for her insulin on a sliding scale. Her hemoglobin and hematocrit today are 8.1 and 24.4. The patient has so far received 1 unit of blood. We will continue to monitor her CBC and BMP and follow the plan of care per PCP. This plan was discussed with Dr. Stein. Please call us for any further questions or concerns. Dictated by ADELA Hurt for Akash Stein MD cc: MD Ming Webber Jr, MD I have seen and examined the patient myself. I agree with the above plan of care. I have discussed the above with the patient's RN and all questions were answered. Please call us with any further questions. MARTY
[2019-07-08] MEDS: PROTONIX IV SCH (15:13)
[2019-07-08] MEDS: SODIUM CHLORIDE 0.9% INJ SCH (15:13)
--- NOTE | 2019-07-08 15:43 | PROGRESS NOTE ---
DATE: 07/08/2019 SUBJECTIVE: Events over the weekend are noted. There is family at the bedside, other than the daughter I met Monday. History from this family is not significantly different. They report she had been doing well cognitively, taking care of herself, fairly abruptly seemed unable to walk and unable to think clearly, and was brought to the hospital. They have never seen her have this behavior before. They do not think she has used ethanol, illicit drugs or misused any of her regular medications. WBC count was 13,000 and now down to 9000. BUN is up from the 30s into the 120s. Blood sugars were over 400 during the weekend, down to the 100s now. Urine drug screen on Monday was positive for benzodiazepines. She has not had recent benzodiazepine prescription herself. She had a dose of lorazepam 0.5 mg in the hospital on 06/01/2019, and 1 mg on 06/29/2019, and 0.5 mg on 06/30/2019 and on 07/01/2019. I am not certain these relatively low doses would explain benzodiazepine present in the urine on 07/05/2019. One family member thinks it would not be impossible that she had been given a benzodiazepine medication by relative at home. She continues afebrile. Heart rate was elevated over the weekend. Liver enzymes have all been okay, except alkaline phosphatase up to 120 today. OBJECTIVE: On exam, she is supine and appeared to be sleeping, breathing rapidly. With moderate stimulation, she changed her breathing pattern, opened her eyes, looked at me, looked at family. Initially, she did not interact. With vigorous stimulation, she grumbled and said a few words that I could understand and seemed to call 1 family member correctly by name. Daughter at the bedside reports she did speak to her and called her by name and identified her grandson by name at the bedside a few hours before my interview. She did not follow commands to hold up fingers, open and close eyes, squeeze fingers, move limbs. Head is unremarkable. Neck is supple without meningismus. There is full lateral eye movement. Limb tone is symmetric. IMPRESSION: Global encephalopathy, uncertain etiology. There have been features of delirium with hypoactivity and hyperactivity. There has been some concern that her trazodone dosing and cessation might be playing a role. Uremia and hyperglycemia over the weekend could account for some of the current obtundation, but would not explain her deterioration last week. I told family very frankly and at length of my uncertainty and difficulty making firm impression. She appears to be stable without any definite deterioration neurologically since I saw her 3 days ago. Her electroencephalogram showed generalized slowing, but nothing really remarkable. Imaging has been similarly unremarkable. PLAN: I do not have any urgent suggestion. Depending on her clinical course, we might repeat EEG, repeat imaging, consider lumbar puncture. I will repeat her urine drug screen today. If benzodiazepine remains present, we might consider a dose of Romazicon. Family expressed interest in transfer, and I told them that would need to be a decision made with her attending. Thanks for asking Neurology to see Ms. Murillo. cc: MD Ming Ritter III, Jr, MD MTDD
--- NOTE | 2019-07-08 18:08 | Diag Imaging Result Doc PS360 ---
EXAM: CT HEAD W/O CONTRAST 07/08/2019 HISTORY: AMS TECHNIQUE: This exam was performed using automated exposure control, adjustment of mA or kV according to patient size, and/or use of iterative reconstruction technique. COMMENT: The current examination is compared with the previous study of 07/06/2019. There are calcifications in the globus pallidus bilaterally. There is no evidence of mass effect, bleed, or abnormal extra-axial fluid collection. Compared to the previous examination there has been no appreciable change. IMPRESSION: No evidence of acute intracranial disease. Electronically signed by Hever Matthews 07/08/2019 6:05 PM
--- NOTE | 2019-07-08 18:12 | Diag Imaging Result Doc PS360 ---
EXAM: CT ABDOMEN/PELVIS W/O CONTRAST 07/08/2019 HISTORY: constipation, GI bleed TECHNIQUE: This exam was performed using automated exposure control, adjustment of mA or kV according to patient size, and/or use of iterative reconstruction technique. COMMENT: The current study is compared with the previous examination of 06/13/2019. There are bilateral pleural effusions and bibasilar opacities with compressive atelectasis in both lower lobes. This was not the case at the time the previous study. There is alveolar opacity in the visualized portions of both upper lobes particularly the left upper lobe. The possibility of pneumonia plus minus pulmonary edema is suggested. There is an NG tube in the stomach. The adrenal glands are not enlarged. There is no evidence of nephrolithiasis or hydronephrosis. There are arterial calcifications including the left renal arteries. No evidence of aneurysm is present. There is no evidence of bowel obstruction. The appendix is not enlarged. There is a Garcia catheter in the bladder. There is no free fluid. There is a fat-containing umbilical hernia. There is some subcutaneous edema over the lateral left buttock and flank. This was also not appreciable previously. IMPRESSION: Pulmonary edema and/or pneumonia with bilateral pleural effusions and lower lobe atelectasis. Mild anasarca. No evidence of acute intra-abdominal disease. Electronically signed by Hever Matthews 07/08/2019 6:09 PM
[2019-07-08] MEDS: FOLIC ACID 5 MG in NS 50 ML IV SCH (19:42)
[2019-07-08] MEDS: XALATAN 0.005% OPH SOLN LEFT EYE SCH (20:03)
--- NOTE | 2019-07-08 21:54 | PULMONOLOGY PROGRESS NOTE ---
DATE: 07/08/2019 INTERIM HISTORY: Patient has been transferred to the ICU for mild increase in work of breathing. She remains on nasal cannula. She remains disoriented and will not respond to questions. OBJECTIVE: Vital Signs: Maximum temperature in the last 24 hours 98.7 degrees, BP 130/86, heart rate 83, respiratory rate 28, oxygen saturation 94%. HEENT: Pupils are equal and reactive. Oropharynx appears clear, but dry. Neck: Supple. Chest: Coarse rhonchi bilaterally. Cardiac: Regular rate, normal S1, normal S2. Abdomen: Soft with decreased bowel sounds. Extremities: Trace to 1+ peripheral edema. LABORATORIES: White blood count 8.94, hemoglobin 8.1, platelet count 79,000. Sodium 139, potassium 5.4, chloride 108, bicarbonate 12, BUN 121, creatinine 3.6, glucose 172. Arterial blood gas reveals a pH of 7.38, pCO2 of 23, pO2 of 68, with a normal lactate. CT scan of the abdomen and pelvis reveals bibasilar pneumonia/consolidation with small bilateral effusions, right greater than left, without definite intraabdominal pathology. CT scan of the brain reveals no acute change. IMPRESSION: A 78-year-old with: 1. Acute hypoxemic respiratory failure. 2. Global encephalopathy. 3. Pneumonia. 4. Small effusions. 5. Hemoptysis versus hematemesis. 6. Acute on chronic renal failure. 7. Diabetes mellitus. DISCUSSION: A 78-year-old with problems outlined above. By family's report, she was functional 10 days ago, but she has had multiple evaluations in the emergency room beginning at the 28 of May. It is not clear whether that is playing a role in current presentation. Family is frustrated/angry about lack of a unifying diagnosis, and has expressed desire to move to [facility] or [place]. I explained that she would need an accepting physician for that transfer, and that would have to be arranged through Dr. Palmer. RECOMMENDATIONS: 1. Continue ICU monitoring. She is at risk for decompensation. 2. Continue broad-spectrum antibiotics. 3. Request consultation with Nephrology, given worsening renal failure. 4. Prognosis is guarded. cc: MD Ming Castro Jr, MD
[2019-07-09] MEDS: HUMALOG SUBQ SCH ×6 (01:25→21:43)
[2019-07-09 02:04] LABS: ALLEN TEST YES; BE -13.5 mmoll (-3.0-3.0); BLOOD TYPE ARTERIAL; HCO3-(ACT) 14.4 mmoll (20.0-26.0); METHB 1.2 % (0.0-1.5); O2(CT) 11.5 mL/dL (15.0-23.0); PCO2(98.6) 40 mmHg (35-45); PO2(98.6) 76 mmHg (60-100); SAMPLE BLOOD; SAO2 96.6 % (95.0-100.0); THB 8.6 g/dL (11.5-17.4)
[2019-07-09 02:06] LABS: MODALITY COOL AEROSOL; pH(98.6) 7.16 (7.35-7.45)
[2019-07-09] MEDS ORDERED: AMIDATE ONE (02:19)
[2019-07-09] MEDS ORDERED: NORCURON ONE (02:19)
[2019-07-09] MEDS ORDERED: DIPRIVAN 1% ONE (02:19)
[2019-07-09] MEDS ORDERED: VERSED ONE (02:19)
[2019-07-09] MEDS ORDERED: AMIDATE IV ONE (02:20)
[2019-07-09] MEDS ORDERED: QUELICIN ONE (02:20)
[2019-07-09] MEDS ORDERED: NORCURON IV ONE (02:26)
[2019-07-09] MEDS: ZOSYN 2.25 GM in NS 50 ML IV SCH ×4 (03:12→20:05)
[2019-07-09] MEDS: DIPRIVAN 1% 1,000 MG/100 ML BOTTLE IV SCH ×3 (03:17→21:17)
[2019-07-09] MEDS: PROTONIX IV SCH ×2 (04:22→15:32)
[2019-07-09 05:16] LABS: ALLEN TEST YES; BLOOD TYPE ARTERIAL; HCO3-(ACT) 15.6 mmoll (20.0-26.0); O2(CT) 11.6 mL/dL (15.0-23.0); PCO2(98.6) 29 mmHg (35-45); PO2(98.6) 126 mmHg (60-100); SAMPLE BLOOD; SAO2 98.8 % (95.0-100.0); SRATE 18 BPM; THB 8.4 g/dL (11.5-17.4); TVOL 500 mL; pH(98.6) 7.28 (7.35-7.45)
[2019-07-09 05:17] LABS: MODALITY VENTILATOR
[2019-07-09] MEDS: ALBUTEROL NEB INH SCH ×4 (06:05→21:15)
[2019-07-09 06:44] LABS: BASO# 0.02 X1000 (0.0-0.2); BASO% 0.3 % (0.0-0.8); EOS# 0.02 X1000 (0.0-0.7); EOS% 0.3 % (0.0-10.0); HEMATOCRIT 24.8 % (37.0-47.0); HEMOGLOBIN 7.9 g/dL (12.0-16.0); IMM GRAN# 0.11 X1000 (0.0-0.04); IMM GRAN% 1.6 % (0.0-0.5); LYMPH# 0.93 X1000 (1.2-3.4); LYMPH% 13.5 % (20.5-51.1); MCH 28.8 PG (27-31); MCHC 31.9 g/dL (33-37); MCV 90.5 FL (81-99); MONO# 0.39 X1000 (0.11-0.59); MONO% 5.7 % (1.7-9.3); MPV 11.6 FL (7.4-10.4); NEUT% 78.6 % (42.2-75.2); PLT 68 X1000 (130-400); RBC 2.74 XMIL (4.2-5.4); RDW 15.1 % (11.5-14.5); WBC 6.87 X1000 (4.8-10.8)
[2019-07-09 06:56] LABS: ALB/GLOB RATIO 1.1; ALBUMIN 2.6 g/dL (3.5-5.0); CALCIUM 8.2 mg/dL (8.8-10.2); CREATININE 3.5 mg/dL (0.5-0.9); POTASSIUM 5.8 mmol/L (3.5-5.1); TOTAL BILIRUBIN 0.36 mg/dL (0.20-1.00); TOTAL PROTEIN 4.9 g/dL (6.3-8.3)
--- NOTE | 2019-07-09 07:10 | Diag Imaging Result Doc PS360 ---
EXAM: CHEST-PORTABLE 07/09/2019 HISTORY: intubation TECHNIQUE: AP portable at 1441 COMMENT: There is an endotracheal tube with its tip approximately 3 cm above the morenita and an NG tube with its tip below the diaphragm. There is a PICC line on the left with its tip just above the right atrium. There is hazy opacity over both lung bases with obscuration of the hemidiaphragms. This is worse on the left. There may be pleural fluid particularly on the left. Compared to 07/07/2019 the basilar opacities are worse and there is definitely more pleural fluid on the left. IMPRESSION: Pulmonary edema and/or pneumonia particularly in the left lower lobe. Left pleural effusion. Electronically signed by Hever Matthews 07/09/2019 7:07 AM
[2019-07-09] MEDS: MUCOMYST 20% INH SCH ×2 (08:12→21:15)
[2019-07-09] MEDS: CLINIMIX E 4.25%-5% SOLUTION 1,000 ML IV SCH (09:12)
[2019-07-09] MEDS: DULCOLAX PR SCH ×2 (09:16→21:42)
[2019-07-09] MEDS: MIRALAX NG SCH ×2 (09:17→21:42)
[2019-07-09] MEDS: ROCALTROL PO SCH (09:21)
[2019-07-09] MEDS ORDERED: ATROPINE SYRINGE ONE (10:07)
[2019-07-09] MEDS ORDERED: EPINEPHRINE ONE (10:11)
[2019-07-09] MEDS ORDERED: EPINEPHRINE INJ ONE (10:15)
[2019-07-09] MEDS ORDERED: SODIUM CHLORIDE 0.9% INJ ONE (10:15)
--- NOTE | 2019-07-09 10:40 | PROGRESS NOTE ---
DATE: 07/09/2019 SUBJECTIVE: The patient is now on ventilator with respiratory arrest. Family members were by and we had a long talk this morning about her condition. She is in some renal failure as well. Dr. Burgos was in the room also evaluating her and has decided to try her on some Lasix and if that does not work would consider dialysis. Chest x-ray this morning shows pulmonary edema and/or pneumonia particularly left lower lobe, pleural effusion present. OBJECTIVE: Vital Signs: Blood pressure 144/59, respirations 22, pulse 66. Oxygen saturation 100%. Temp 97.3 degrees Fahrenheit. HEENT: She is normocephalic. Lungs: Scattered rales, rhonchi. Heart: Regular rate and rhythm without murmurs, gallops, friction rubs. Abdomen: Soft. Active bowel sounds. No organomegaly or tenderness. NEUROLOGIC: The patient is not responsive on the ventilator. LABORATORY DATA: Her white count 6870, hemoglobin 7.9, hematocrit 24.8 after transfusion. Her hemoglobin had on the 10th been down to 6.6 with a hematocrit of 20.5. Her pH was down to 7.16. Her pH earlier was 7.38. Potassium is a little high at 5.8. Creatinine is 3.5. BUN 129. Blood cultures are all negative. ASSESSMENT: 1. Respiratory arrest. 2. Pneumonia. 3. Pulmonary edema. 4. Kidney failure. 5. Acidosis. 6. Anemia. 7. Gastrointestinal bleed. PLAN: Continue to support. cc: Ming Palmer Jr, MD
[2019-07-09] MEDS: VANCOMYCIN 1 GM/NS 1 GM/250 ML IVPB IV SCH ×2 (10:50→22:40)
[2019-07-09] MEDS: ALBUMIN 25% IV SCH (10:53)
[2019-07-09] MEDS: LASIX IV SCH ×2 (10:54→17:09)
[2019-07-09 11:12] LABS: URINE SOURCE CATH
[2019-07-09 11:15] LABS: BILIRUBIN URINE NEGATIVE (NEGATIVE); BLOOD URINE SMALL (NEGATIVE); COLOR YELLOW; GLUCOSE URINE NEGATIVE (NEGATIVE); KETONE URINE NEGATIVE (NEGATIVE); LEUKOCYTES URINE SMALL (NEGATIVE); NITRITE URINE NEGATIVE (NEGATIVE); PROTEIN URINE TRACE mg/dL (NEGATIVE); SP GRAVITY URINE 1.016; TURBIDITY URINE HAZY (CLEAR); UR EPITHELIAL CELLS <10 /HPF (<10); URINE BACTERIA NEGATIVE /HPF; UROBILINOGEN URINE NORMAL (NORMAL)
[2019-07-09 11:39] LABS: UR AMPHETAMINES QUAL NONE DETECTED (NONE DETECT); UR BARBITUATES QUAL NONE DETECTED (NONE DETECT); UR BENZODIAZEPIN QUAL NONE DETECTED (NONE DETECT); UR CANNABINOIDS QUAL NONE DETECTED (NONE DETECT); UR COCAINE QUAL NONE DETECTED (NONE DETECT); UR CREAT RANDOM 43.2 mg/dL (11-20); UR METHADONE QUAL NONE DETECTED (NONE DETECT); UR OPIATES QUAL NONE DETECTED (NONE DETECT); UR OXYCODONE QUAL NONE DETECTED (NONE DETECT); UR PCP QUAL NONE DETECTED (NONE DETECT); UR PROT RANDOM 17.7 mg/dL
--- NOTE | 2019-07-09 12:27 | OPERATIVE NOTE ---
PROCEDURE DATE: 07/09/2019 PROCEDURE PERFORMED: Upper gastrointestinal endoscopy with epi/cautery and biopsy. PROVIDER: Dipesh Aguilar MD. INDICATIONS: Upper GI bleed. MEDICATIONS: General anesthesia. DESCRIPTION OF PROCEDURE: Prior to procedure, a history and physical was performed, and the patient's medications and allergies were reviewed. The patient's tolerance of previous anesthesia was also reviewed. The risks and benefits of the procedure and the sedation options and risks were discussed with the patient's family. All questions were answered and informed consent was obtained. After reviewing the risks and benefits, the patient was deemed in satisfactory condition to undergo the procedure. The endoscope was passed under direct visualization. Throughout the procedure, the patient's blood pressure, pulse, and oxygen saturations were monitored continuously. The endoscope was introduced through the mouth and advanced to the second portion of the duodenum. The upper endoscope was exchanged for a pediatric colonoscope to treat the lesions in the second to third portion of the duodenum.The upper GI endoscopy was accomplished without difficulty. The patient tolerated the procedure. COMPLICATIONS: No immediate complications. ESTIMATED BLOOD LOSS: Minimal. FINDINGS: There was diffuse acute esophageal necrosis, "black esophagus", from 15 cm to 40 cm from the incisors. There was mucopurulent pseudomelanosis type of lining of the esophagus that could not be suctioned off. This was circumferential from the length described above. There were no signs of active bleeding from the esophagus. There was a small hiatal hernia. The stomach appeared normal. The first portion and the second portion of the duodenum revealed multiple cratered, clean-base ulcers. There were two areas that had adherent clot in the second portion of the duodenum that were suctioned off, revealing two underlying vessels. These were injected with epinephrine 4 mL diluted 1:10,000 submucosally and treated with a monopolar probe to prevent bleeding. There was scant bright red blood throughout the second portion of the duodenum. There was no active bleeding at the end of the procedure. Biopsies were obtained of the duodenal bulb of a couple of ulcers to evaluate for other conditions that may explain her ulceration. The findings are typical of ischemic injury. IMPRESSION: 1. Acute esophageal necrosis. 2. Hiatal hernia. 3. Ulcerated duodenum, two ulcers with adherent clot and visible vessels treated with epinephrine and cautery. RECOMMENDATIONS: - Strict NPO - recommend parental nutrition - Avoid NG tube placement for the next 24 to 48 hours - Pantoprazole 40 mg IV b.i.d - Avoid hypotension - Continue empiric antibiotics - Continue supportive care - Monitor for signs of esophageal perforation, which occurs in these cases < 10% of these cases - The findings and plan were discussed with the patient's family and primary team - We will follow with you. Please call with any questions or concerns cc: Ming Palmer Jr, MD MTDD
[2019-07-09] MEDS ORDERED: SODIUM BICARBONATE 8.4% 150 MEQ in D5W 1,000 ML IV SCH (12:30)
--- NOTE | 2019-07-09 13:36 | NEPHROLOGY CONSULTATION ---
DATE: 07/09/2019 Chief complaint: intubated and sedated HPI: Mrs. Murillo is a 78-year-old -[place] female who has a past medical history of diabetes mellitus type two, diverticulosis, dyslipidemia, chronic kidney disease. She initially presented to the emergency department at the beginning of May with shortness of breath and cough with white sputum production. She was given antibiotics and sent home. She returned the following day with complaints of vomiting blood but was left before being seen. On 06/01/19 she returned with nausea and vomiting with blood in her emesis. At that time, an abdominal/ pelvic CT scan revealed a hiatal hernia but no definite pathology. On 06/13/2019 she returned to the hospital for dehydration but left against medical advice. On 06/29/2019 she returned to the ER with increased weakness and was admitted for altered mental status. An MRI revealed no acute abnormality. Dr. Almazan was consulted and an EEG revealed mild generalized slowing. On 07/05/19 she had and an acute change in mental status with blood coming from her mouth and nose. She was transferred to [facility] where her oxygen requirements have continually declined. Last night she decompensated and is now intubated and on sedation. Her baseline Creatinine is around 2. On 06/29/2019 it was 2.7 and has been rising since then. Today it is 3.5. Past medical history: chronic kidney disease stage two, diabetes mellitus type two, diverticulosis, hyperlipidemia. Past surgical history: unable to obtain. Social history: Lives at home with siblings Family history: unable to obtain Allergies: no known. Home medications: Amlodipine,Irbesartam, omeprazole, Actos, potassium chloride, trazodone. Review of systems: unable to obtain Labs: WBC 6.87, hemoglobin 7.9, hematocrit 24.8, platelet count 68, sodium 143, potassium 5.8, chloride 111, carbon dioxide 13, and I got 19, BUN 129, creatinine 3.5, calcium 8.2, ABGs: pH 7.16, PCO2 40, PO2 76, HCO3 14.4, base excess -13.5, intake 1891, output 1000. Imaging: CT head without contrast impression no evidence of acute intracranial disease. Chest x-ray impression pulmonary edema and or pneumonia particularly in the left lower lobe. Left pleural effusion. Physical exam: vitals. Pulse 65, respirations 17, blood pressure 170/68, O2 sat 100% on 60% mechanical ventilation. General: Elderly -Ind[place]ian female lying in bed on A mechanical ventilator and is receiving sedation. HEENT: normocephalic, Corneal arcus. Trachea midline, blood and sputum coming from her oral cavity. Skin: warm and dry Neck: supple, 8-10cm JVD Cardiovascular: Distant, s1s2 no murmur or gallop Respiratory: Coarse wheezes with mechanical ventilation noises anteriorly Abdomen: Obese, soft, nontender, non distended, bowel sounds hypoactive : Garcia in place Extremities: Generalized edema to upper with Trace lower Neurological: sedated. Assessment and plan: Acute on chronic kidney disease stage 3. Baseline Creatinine around 2 as of last year, she is 8 liters positive. We will give albumin and lasix to treat her fluid status and if she doesnt respond to the medications we will consider Renal replacement therapy. Urine studies ordered. Hypoalbuminemia. Will receive albumin today. cc: MD Ming Gonzalez Jr, MD MTDD
[2019-07-09] MEDS ORDERED: APRESOLINE IV PRN (13:43)
--- NOTE | 2019-07-09 18:28 | PROGRESS NOTE ---
DATE: 07/09/2019 SUBJECTIVE: The patient had respiratory decompensation and was intubated. Her BUN and creatinine have been trending up during her stay. She has been followed by Dr. Almazan, for global encephalopathy of uncertain etiology. Chart was reviewed. There was no family currently available for discussion. Cranial imaging and EEG have been unremarkable. She had an upper endoscopy today, showing acute esophageal necrosis. Also, ulcerated duodenum with adherent clot and visible vessels treated with epinephrine and cautery. Nurse reports she does not tolerate holding of sedation. OBJECTIVE: Hypothermic. Blood pressure 166/77, current. Pulse 80s to 90s. She is on the ventilator. She is supine on the ventilator. She does not follow commands. I did not see spontaneous movement. Right pupil is clouded. Left pupil is miotic, but does react sluggishly to bright light. There is brisk corneal reflex bilaterally. There is subtle horizontal eye movement with passive head turning. No blink to threat. Face appears symmetric with equal grimace. With moderate noxious stimuli of all 4 extremities, she grimaces and has some head turning. Reflexes are diminished symmetrically. There is no clonus. Plantar response is silent. LABORATORY AND DIAGNOSTIC DATA: Labs reviewed in the chart. Normal white count. Hemoglobin 7.9, hematocrit 24.8, platelet count has been decreasing, 68,000 today. BUN of 129, creatinine of 3.5, blood sugar of 133, was up to 400 over the weekend. Toxicology was repeated and was negative today compared to [address] was repeated yesterday and did not show acute findings. ASSESSMENT AND PLAN: Remains global encephalopathy, uncertain etiology. Multiple contributing factors currently. I would continue correcting her underlying toxic metabolic and medical conditions and continue supportive care as you are doing. No further suggestions to add to Dr. Almazan's plan from yesterday. cc: MD Ming Lima Jr, MD MTDD
[2019-07-09] MEDS: FOLIC ACID 5 MG in NS 50 ML IV SCH (20:00)
[2019-07-09] MEDS: XALATAN 0.005% OPH SOLN LEFT EYE SCH (22:43)
--- NOTE | 2019-07-09 23:43 | PULMONOLOGY PROGRESS NOTE ---
DATE: 07/09/2019 SUBJECTIVE/INTERIM HISTORY: The patient began having oxygen desaturation last evening/early this morning. She had some mucus suctioned clear, but did not recover. The patient was intubated to prevent respiratory arrest. OBJECTIVE: Vital Signs: The patient is sedated. She has been afebrile for the last 24 hours. Blood pressure 158/57, heart rate 74, respiratory rate 20, oxygen saturation 100%. HEENT: Pupils are equal and reactive. Oropharynx appears clear. Neck: Supple. Chest: Reveals coarse rhonchi bilaterally. Cardiac: S1, S2. Abdomen: Soft with diminished bowel sounds. Extremities: Slightly cool to the touch. LABORATORIES: Sodium 143, potassium 5.8, chloride 111, bicarbonate 13, BUN 129, creatinine 3.5. Glucose 133. White blood count 6.87, hemoglobin 7.9, platelet count 68,000. Microbiology: Sputum culture has been collected. Chest x-ray reveals basilar infiltrates with small left-sided effusion. Arterial blood gas reveals a pH of 7.28, pCO2 of 29, PO2 of 126 with a normal lactate. IMPRESSION: A 78-year-old with: 1. Acute hypoxemic respiratory failure. 2. Bilateral pneumonia. 3. Hematemesis with swallowing dysfunction/dysphagia. 4. Small effusion. 5. Diabetes mellitus. 6. Acute on chronic renal failure. PLAN: 1. Intubation and initiation of mechanical ventilation (completed). 2. One L of D5W with 150 mg of sodium bicarbonate for metabolic acidosis. 3. Nephrology consultation. 4. Anticipate EGD today now that patient has been intubated. Time spent in critical care management: 30+ minutes cc: MD Ming Castro Jr, MD [facility]ALS[facility]
[2019-07-10] MEDS: ZOSYN 2.25 GM in NS 50 ML IV SCH ×4 (01:53→19:54)
[2019-07-10] MEDS: LASIX IV SCH ×3 (01:54→17:16)
[2019-07-10] MEDS: HUMALOG SUBQ SCH ×6 (01:54→21:04)
[2019-07-10] MEDS: ALBUTEROL NEB INH SCH ×4 (03:19→21:22)
[2019-07-10 04:33] LABS: ALLEN TEST YES; BE -7.7 mmoll (-3.0-3.0); BLOOD TYPE ARTERIAL; HCO3-(ACT) 18.9 mmoll (20.0-26.0); METHB 1.9 % (0.0-1.5); O2(CT) 9.9 mL/dL (15.0-23.0); O2HB 95.7 % (95.0-99.0); PCO2(98.6) 28 mmHg (35-45); PO2(98.6) 106 mmHg (60-100); SAMPLE BLOOD; SAO2 98.5 % (95.0-100.0); SRATE 18 BPM; THB 7.2 g/dL (11.5-17.4); TVOL 600 mL; pH(98.6) 7.38 (7.35-7.45)
[2019-07-10 04:34] LABS: MODALITY VENTILATOR
[2019-07-10] MEDS: CLINIMIX E 4.25%-5% SOLUTION 1,000 ML IV SCH ×2 (04:34→17:46)
[2019-07-10] MEDS: PROTONIX IV SCH ×2 (04:35→15:38)
[2019-07-10] MEDS: DIPRIVAN 1% 1,000 MG/100 ML BOTTLE IV SCH ×4 (04:41→21:57)
[2019-07-10 05:20] LABS: EOS# 0.02 X1000 (0.0-0.7); EOS% 0.3 % (0.0-10.0); HEMATOCRIT 20.3 % (37.0-47.0); HEMOGLOBIN 6.7 g/dL (12.0-16.0); IMM GRAN# 0.09 X1000 (0.0-0.04); IMM GRAN% 1.4 % (0.0-0.5); LYMPH# 1.41 X1000 (1.2-3.4); LYMPH% 21.5 % (20.5-51.1); MCV 87.9 FL (81-99); MPV 9.6 FL (7.4-10.4); NEUT# 4.85 X1000 (1.4-6.5); NEUT% 73.8 % (42.2-75.2); PLT 42 X1000 (130-400); RBC 2.31 XMIL (4.2-5.4); WBC 6.57 X1000 (4.8-10.8)
[2019-07-10 05:34] LABS: BANDS 4 % (0-1); LYMPHS 22 % (21-51); MONO 4 % (1-9); POIKILOCYTOSIS 1+; SCHISTOCYTES OCCASIONAL; SEGS 70 % (42-75)
[2019-07-10 05:37] LABS: ALB/GLOB RATIO 1.7; ALBUMIN 3.2 g/dL (3.5-5.0); CALCIUM 8.2 mg/dL (8.8-10.2); CREATININE 3.6 mg/dL (0.5-0.9); POTASSIUM 4.3 mmol/L (3.5-5.1); TOTAL BILIRUBIN 0.37 mg/dL (0.20-1.00); TOTAL PROTEIN 5.1 g/dL (6.3-8.3)
--- NOTE | 2019-07-10 07:03 | Diag Imaging Result Doc PS360 ---
CHEST-PORTABLE - 07/10/2019 INDICATION: respiratory failure COMPARISON: 07/09/2019 FINDINGS: The nasogastric tube has been removed. Stable endotracheal tube and left PICC line in good position. There has been significant improvement in the bibasilar airspace opacities. There is moderate residual infiltrate in the left lung base. Heart size and pulmonary vascularity is normal. IMPRESSION: Significant improvement from prior. Electronically signed by Dominic Lopez 07/10/2019 7:01 AM
[2019-07-10] MEDS: ALBUMIN 25% IV SCH (08:00)
[2019-07-10] MEDS: MIRALAX NG SCH ×2 (08:36→20:05)
[2019-07-10] MEDS: ROCALTROL PO SCH (08:36)
[2019-07-10] MEDS: DULCOLAX PR SCH ×2 (08:36→20:06)
[2019-07-10] MEDS: VANCOMYCIN 1 GM/NS 1 GM/250 ML IVPB IV SCH (09:16)
--- NOTE | 2019-07-10 09:37 | PROGRESS NOTE ---
DATE: 07/10/2019 SUBJECTIVE: The patient is sedated on the ventilator still. OBJECTIVE: Vital Signs: Blood pressure 129/72, respirations 20, pulse 90, temperature is 98.1 degrees Fahrenheit. HEENT: She is normocephalic. Lungs: Have few rales anteriorly. Heart: Regular rate and rhythm without murmurs, gallops or friction rubs. Abdomen: Soft. Active bowel sounds. No organomegaly or tenderness. Neurological exam: Unable to evaluate at this time. LABS: White count is 6570, hemoglobin was back down to 6.7, hematocrit 20.3. She will get some blood. She did diurese some with Lasix yesterday, but creatinine is back up to 3.6. BUN 123. Potassium 4.3. Platelet count is only 42,000; it was 158,000 on the . Blood gas today shows a pH that is improved from 7.16 up to 7.38, pCO2 is 28, PO2 106. The patient has been on bicarbonate drip. Urine did show 10 to 20 WBCs, 10 to 20 RBCs per high-powered field. Sputum cultures pending. She did have blood in her stool. Urine cultures and blood cultures so far have been negative. X-RAYS: Chest x-ray shows significant improvement from the prior. There was still some infiltrate in the left lung base. ASSESSMENT: 1. Acute hypoxic respiratory failure. 2. Pneumonia. 3. Pleural effusions. 4. Acute kidney injury with renal failure. 5. Possible ischemic bowel. 6. Upper gastrointestinal bleed. 7. Esophageal necrosis. 8. Thrombocytopenia. 9. Diabetes mellitus. PLAN: We will continue to support. Has seen some improvement with her pleural effusions and her pneumonia. Her blood gases are better; however, she is still very sick with renal failure, GI bleed and possible ischemic bile in the esophagus. We will continue to support. Appreciate the help from all the specialists. cc: Ming Palmer Jr, MD
--- NOTE | 2019-07-10 10:40 | PROGRESS NOTE ---
DATE: 07/10/2019 Ms. Murillo continues heavily sedated, intubated, mechanically ventilated. Dr. Partida saw her for Neurology yesterday. Repeat urine drug screen was negative for benzodiazepines and I do not now suspect benzodiazepine was responsible for her encephalopathy. There has not ever been clear focal neurologic feature. There has not been definite evidence of increased intracranial pressure or meningismus. She has multiple metabolic problems now which could account for her current encephalopathy, but I still do not have a good explanation from purely neurologic standpoint for her initial presentation and deterioration during the earlier portion of this hospitalization. I discussed my difficulty with diagnosis frankly with family at the bedside. I do not have any new suggestion from Neurology standpoint right now. Thanks for asking us to see Ms. Murillo. cc: MD Ming Ritter III, Jr, MD MTDD
[2019-07-10] MEDS: MUCOMYST 20% INH SCH ×2 (11:21→21:22)
--- NOTE | 2019-07-10 15:24 | GASTROENTEROLOGY PROGRESS NOTE ---
DATE: 07/10/2019 SUBJECTIVE: Ms. Murillo is a 78-year-old female who is unresponsive, sedated and on mechanical ventilator. OBJECTIVE: Vital Signs: Temperature 99.1 degrees, pulse 94, respirations 20, blood pressure 120/62, oxygen saturation 100% on mechanical ventilator. Her weight is 195 pounds. BMI is 34.6 kg/m2. General: The patient is not responsive, unable to assess patient. HEENT: Pale conjunctivae. Scleral icterus. Neck: Supple. Lungs: Rhonchi heard in the anterior mandujano. Cardiovascular: Patient is tachycardic. Abdomen: Soft, obese. Hypoactive bowel sounds heard in all 4 quadrants. Extremities: No cyanosis, no clubbing. Generalized edema noted bilaterally. Neurologic: Unable to assess patient. On mechanical ventilator and sedated. LABS: WBC is 6.57, RBC 2.31, hemoglobin 6.7, hematocrit 20.3, platelet count 42,000. PT 16.2, INR 1.28, sodium 144, potassium 4.3, chloride 109, carbon dioxide 15, anion gap 20, BUN 123, creatinine 3.6, glucose 159, calcium 8.2, total bilirubin 0.37, AST 13, ALT 11, alkaline phos 77, albumin 3.2. The patient's TRI screen with reflex A/B is O negative. RPR was negative. Chest x- ray today showed no significant improvement. Chest x-ray on 07/09 had shown pulmonary edema and pneumonia, particularly in the left lower lobe and Left pleural effusion. IMPRESSION: Coffee-ground emesis through NG tube Upper GI bleed Acute hypoxic respiratory failure, Malnutrition Anemia Constipation Aspiration Pneumonia Chronic renal failure Encephalopathy Hx of tobacco abuse PLAN: Ms. Murillo 78 year old female is seen by GI for her coffee ground emesis and upper GI bleed. Dr. Aguilar had performed an upper GI endoscopy at the bedside yesterday and the findings were acute esophageal necrosis, hiatal hernia, ulcerated duodenum, 2 ulcers with adherent clot and visible vessels treated with epinephrine and cauterized. The patient is currently NPO. Her H & H today was 6.7 and 20.3, and her platelet count was 42,000. We are going to transfuse 1 unit of packed red blood cells and 5 units of platelets. We will recheck her CBC's. The patient is currently on TPN for her nutrition. She is also receiving antibiotics Zosyn for her pneumonia per PCP. We will continue her with GI prophylaxis, Protonix IV twice a day for GI bleed and Dulcolax 10 mg suppository twice a day for constipation. We will continue to monitor her CBC, BMP and follow the plan of care per PCP. This plan has been discussed with Dr. Aguilar. Please call us for any further questions or concerns. Dictated by ADELA Hurt for Dipesh Aguilar MD cc: Ming Palmer Jr, MD Physician Attestation I have seen and examined the patient. I have discussed and reviewed the note by Megan CHAPMAN and agree with findings and plan as documented. [facility]
[2019-07-10 15:53] LABS: BASO# 0.01 X1000 (0.0-0.2); BASO% 0.1 % (0.0-0.8); HEMATOCRIT 20.6 % (37.0-47.0); HEMOGLOBIN 6.7 g/dL (12.0-16.0); IMM GRAN% 1.5 % (0.0-0.5); LYMPH# 1.05 X1000 (1.2-3.4); LYMPH% 15.3 % (20.5-51.1); MCH 28.5 PG (27-31); MCHC 32.5 g/dL (33-37); MCV 87.7 FL (81-99); MONO# 0.22 X1000 (0.11-0.59); MONO% 3.2 % (1.7-9.3); MPV 10.3 FL (7.4-10.4); NEUT% 79.9 % (42.2-75.2); PLT 85 X1000 (130-400); RBC 2.35 XMIL (4.2-5.4); RDW 14.8 % (11.5-14.5); WBC 6.88 X1000 (4.8-10.8)
--- NOTE | 2019-07-10 15:55 | PROVIDER PROGRESS NOTE ---
Progress Note Subjective: intubated and sedated. Objective: vitals. temperature 98.1, pulse 96, respirations 36, blood pressure 111/59, O2 sat 100% mechanical ventilator. General: Elderly -[place] female lying in bed on A mechanical ventilator and is receiving sedation. HEENT: normocephalic, Corneal arcus. Trachea midline, blood and sputum coming from her oral cavity. Skin: warm and dry Neck: supple, 8 cm JVD Cardiovascular: Distant, s1s2 no murmur or gallop irregular rhythm. Respiratory: Coarse wheezes with mechanical ventilation noises anteriorly Abdomen: Obese, soft, nontender, non distended, bowel sounds hypoactive : Garcia in place Extremities: Generalized edema to upper with Trace lower Neurological: sedated. Labs:sodium 144, potassium 4.3, chloride 109, carbon dioxide 15, anion gap 20, BUN 123, creatinine 3.6, calcium 8.2, proteins 5.1, albumin 3.2. Intake 2637, output 1550. Impression: Acute on chronic kidney disease stage 3. Urine output improved, Creatinine stable, we will stay the course and observe. Does not meet the need for urgent Renal replacement therapy. Hypoalbuminemia. Will receive albumin today. Anemia. Receiving PRBC and platelets now. Nutrition. Receiving clinimix. Medication review.
[2019-07-10 16:21] LABS: BASO# 0.01 X1000 (0.0-0.2); BASO% 0.1 % (0.0-0.8); HEMATOCRIT 20.4 % (37.0-47.0); HEMOGLOBIN 6.7 g/dL (12.0-16.0); IMM GRAN# 0.09 X1000 (0.0-0.04); IMM GRAN% 1.3 % (0.0-0.5); LYMPH% 18.4 % (20.5-51.1); MCH 28.8 PG (27-31); MCHC 32.8 g/dL (33-37); MCV 87.6 FL (81-99); MONO# 0.22 X1000 (0.11-0.59); MONO% 3.1 % (1.7-9.3); MPV 9.7 FL (7.4-10.4); NEUT# 5.43 X1000 (1.4-6.5); NEUT% 77.1 % (42.2-75.2); PLT 76 X1000 (130-400); RBC 2.33 XMIL (4.2-5.4); RDW 14.9 % (11.5-14.5); WBC 7.05 X1000 (4.8-10.8)
[2019-07-10] MEDS: FOLIC ACID 5 MG in NS 50 ML IV SCH (19:54)
[2019-07-10] MEDS: XALATAN 0.005% OPH SOLN LEFT EYE SCH (20:04)
[2019-07-10] MEDS ORDERED: SODIUM BICARBONATE 8.4% 150 MEQ in D5W 1,000 ML IV SCH (21:00)
[2019-07-10 22:42] LABS: BASO# 0.01 X1000 (0.0-0.2); BASO% 0.1 % (0.0-0.8); EOS# 0.01 X1000 (0.0-0.7); EOS% 0.1 % (0.0-10.0); HEMATOCRIT 27.2 % (37.0-47.0); IMM GRAN# 0.09 X1000 (0.0-0.04); IMM GRAN% 1.3 % (0.0-0.5); LYMPH# 0.92 X1000 (1.2-3.4); LYMPH% 13.2 % (20.5-51.1); MCH 28.8 PG (27-31); MCHC 33.1 g/dL (33-37); MCV 87.2 FL (81-99); MONO# 0.19 X1000 (0.11-0.59); MONO% 2.7 % (1.7-9.3); MPV 10.1 FL (7.4-10.4); NEUT# 5.74 X1000 (1.4-6.5); NEUT% 82.6 % (42.2-75.2); PLT 71 X1000 (130-400); RBC 3.12 XMIL (4.2-5.4); RDW 14.9 % (11.5-14.5); WBC 6.96 X1000 (4.8-10.8)
[2019-07-10 23:30] LABS: ANISOCYTOSIS 1+; BURR CELLS 1+; LYMPHS 15 % (21-51); MONO 2 % (1-9); SEGS 83 % (42-75)
[2019-07-11] MEDS: VANCOMYCIN 1 GM/NS 1 GM/250 ML IVPB IV SCH (00:31)
[2019-07-11] MEDS: HUMALOG SUBQ SCH ×6 (01:19→21:33)
[2019-07-11] MEDS: ZOSYN 2.25 GM in NS 50 ML IV SCH ×4 (02:21→20:44)
[2019-07-11] MEDS: LASIX IV SCH ×3 (02:21→17:18)
[2019-07-11] MEDS: SODIUM CHLORIDE 0.9% INJ SCH (03:28)
[2019-07-11] MEDS: PROTONIX IV SCH ×2 (03:28→15:27)
[2019-07-11] MEDS: DIPRIVAN 1% 1,000 MG/100 ML BOTTLE IV SCH ×3 (03:28→14:14)
[2019-07-11] MEDS: ALBUTEROL NEB INH SCH ×4 (03:43→21:32)
[2019-07-11 05:21] LABS: ALLEN TEST YES; BE -4.2 mmoll (-3.0-3.0); BLOOD TYPE ARTERIAL; HCO3-(ACT) 21.7 mmoll (20.0-26.0); METHB 1.4 % (0.0-1.5); MODALITY VENTILATOR; O2(CT) 12.9 mL/dL (15.0-23.0); O2HB 96.5 % (95.0-99.0); PCO2(98.6) 30 mmHg (35-45); PO2(98.6) 132 mmHg (60-100); SAMPLE BLOOD; SAO2 99.7 % (95.0-100.0); SRATE 15 BPM; THB 9.3 g/dL (11.5-17.4); TVOL 550 mL; pH(98.6) 7.42 (7.35-7.45)
[2019-07-11 06:04] LABS: BASO# 0.01 X1000 (0.0-0.2); BASO% 0.1 % (0.0-0.8); EOS# 0.01 X1000 (0.0-0.7); EOS% 0.1 % (0.0-10.0); HEMATOCRIT 26.8 % (37.0-47.0); HEMOGLOBIN 8.9 g/dL (12.0-16.0); IMM GRAN% 1.4 % (0.0-0.5); LYMPH# 1.06 X1000 (1.2-3.4); LYMPH% 15.2 % (20.5-51.1); MCH 28.7 PG (27-31); MCHC 33.2 g/dL (33-37); MCV 86.5 FL (81-99); MONO# 0.23 X1000 (0.11-0.59); MONO% 3.3 % (1.7-9.3); MPV 10.9 FL (7.4-10.4); NEUT# 5.56 X1000 (1.4-6.5); NEUT% 79.9 % (42.2-75.2); PLT 61 X1000 (130-400); RDW 15.2 % (11.5-14.5); WBC 6.97 X1000 (4.8-10.8)
[2019-07-11 06:29] LABS: ALB/GLOB RATIO 1.5; ALBUMIN 3.2 g/dL (3.5-5.0); CALCIUM 8.1 mg/dL (8.8-10.2); CREATININE 3.2 mg/dL (0.5-0.9); TOTAL BILIRUBIN 0.52 mg/dL (0.20-1.00); TOTAL PROTEIN 5.4 g/dL (6.3-8.3)
[2019-07-11 07:06] LABS: POTASSIUM 4.3 mmol/L (3.5-5.1)
--- NOTE | 2019-07-11 07:31 | Diag Imaging Result Doc PS360 ---
EXAM: CHEST-PORTABLE INDICATION: respiratory failure TECHNIQUE: One view COMPARISON: 07/10/2019 FINDINGS: Support tubes and lines are in stable position. There is modest increase in bibasilar airspace opacity. Some of this may be positional. No other new consolidation is identified. Cardiac silhouette is stable. IMPRESSION: Interval increase in bibasilar airspace opacities as described. Electronically signed by Benitez Bloom 07/11/2019 7:29 AM
[2019-07-11] MEDS: CLINIMIX E 4.25%-5% SOLUTION 1,000 ML IV SCH (07:39)
--- NOTE | 2019-07-11 07:39 | PULMONOLOGY PROGRESS NOTE ---
DATE: 07/11/2019 SUBJECTIVE: The patient is sedated, but comfortable on mechanical ventilation. She has been afebrile for the last 24 hours. OBJECTIVE: Vital Signs: Blood pressure 131/57, heart rate 83 respiratory rate 16, oxygen saturation 99%. HEENT: Pupils are equal and reactive. Oropharynx appears clear. Neck: Neck is supple. Chest: Reveals coarse breath sounds bilaterally. Cardiac exam: S1, S2. Abdomen: Soft with positive bowel sounds. Extremities: Extremities are without edema. LABORATORIES: Sputum culture is pending. White blood count 6.96, hemoglobin 9.0, platelet count 71,000. Sodium 144, potassium 4.3, chloride 109, bicarbonate 15. BUN 123, creatinine 3.6, glucose 159. Arterial blood gas reveals pH 7.38, pCO2 of 28, pO2 of 106. X-RAYS: Chest x-ray reveals bibasilar infiltrates with significant improvement on the right. IMPRESSION: A 78-year-old with: 1. Acute hypoxemic respiratory failure. 2. Bilateral pneumonia. 3. Necrosis/pseudomembrane formation noted in the esophagus. 4. Diabetes mellitus. 5. Acute on chronic renal failure. RECOMMENDATIONS: 1. Continue mechanical ventilation. 2. Continue to replace sodium bicarbonate for metabolic acidosis. 3. Continue antibiotics for pneumonia and esophageal necrosis. 4. Guarded prognosis. Time spent in critical care management: 35 minutes cc: MD Ming Castro Jr, MD MTDD
[2019-07-11] MEDS: ALBUMIN 25% IV SCH (08:01)
[2019-07-11] MEDS: DULCOLAX PR SCH ×2 (08:03→20:49)
[2019-07-11] MEDS: MIRALAX NG SCH ×2 (08:04→20:49)
[2019-07-11] MEDS: ROCALTROL PO SCH (08:04)
[2019-07-11] MEDS ORDERED: VANCOMYCIN 1 GM/NS 1 GM/250 ML IVPB IV SCH (08:35)
[2019-07-11] MEDS ORDERED: VANCOMYCIN IV PER PHARMACY MISC SCH (09:15)
--- NOTE | 2019-07-11 10:39 | PROGRESS NOTE ---
DATE: 07/11/2019 SUBJECTIVE: The patient is paralyzed on the ventilator. OBJECTIVE: Vital Signs: Blood pressure of 133/52, respirations 15, pulse 81 at this time, although earlier today she had pulse rate down in the 40s. EKG was done and she was back in the 80s with some PVCs. No other acute changes on her EKG. Temperature is 98.2 degrees Fahrenheit. Oxygen saturation is 98% on mechanical ventilation. HEENT: She is normocephalic. Lungs: Sound fairly clear to auscultation. Chest x-ray shows improvement from a couple of days ago with pulmonary edema and pneumonia. Today's looks about like yesterday's, which had shown considerable improvement. Heart: Regular rate and rhythm without murmurs, gallops, friction rubs. Abdomen: Soft. Active bowel sounds. No organomegaly or tenderness. Neurological exam: Hard to evaluate at this time. LABORATORY: White count 6970, hemoglobin 8.9, hematocrit 26.8. The patient has had some blood transfusions. Blood gas shows a pH of 7.42, pCO2 of 30, PO2 of 132. Creatinine is down from 3.6 to 3.2. Sodium 142, potassium 4.3. Patient has grown Staphylococcus epidermidis in her sputum. She is on vancomycin which should cover that if it is not just a contaminant. She had been started on vancomycin by the emergency room physician. I am going to switch it over and let the pharmacy regulate the dose because of her elevated creatinine. ASSESSMENT: 1. Upper gastrointestinal bleed. 2. Acute respiratory arrest. 3. Necrotic esophagus. 4. Peptic ulcer disease. 5. Acute kidney injury with renal failure. 6. Bradycardia, resolved. 7. Pneumonia. 8. Pleural effusions. 9. Possible ischemic bowel. 10. Thrombocytopenia. 11. Diabetes mellitus. PLAN: We will continue support. One of her family members was in the room today, and I talked with her as well. cc: Ming Palmer Jr, MD
[2019-07-11 11:22] LABS: HEPATITIS PROFILE ACUTE SEE COMMENTS
--- NOTE | 2019-07-11 11:37 | EKG Report ---
Test Performed on : 07/11/2019 08:02:46 AM Test Reason : CCU. No order in [place] Blood Pressure : / mmHG Vent. Rate : 084 BPM Atrial Rate : 084 BPM P-R Int : 162 ms QRS Dur : 088 ms QT Int : 426 ms P-R-T Axes : 072 079 092 degrees QTc Int : 503 ms Sinus rhythm. with marked sinus arrhythmia. with occasional premature ventricular complexes. Prolonged QT Abnormal ECG When compared with ECG of 06-JUL-2019 08:54, (Unconfirmed) premature ventricular complexes. are now present premature supraventricular complexes. are no longer present Nonspecific T wave abnormality no longer evident in Inferior leads Nonspecific T wave abnormality no longer evident in Lateral leads Unconfirmed Result
--- NOTE | 2019-07-11 13:24 | PROGRESS NOTE ---
DATE: 07/11/2019 SUBJECTIVE: Ms. Murillo continues intubated, mechanically ventilated, heavily sedated. She has not had recent sedation vacation. There has not been clear focal neurologic finding. After discussion with Dr. Ware, I agree that she may have had transient repetitive septicemia to account for her deterioration in brain function over the period of time prior to recent significant uremia, hyperglycemia and hypoxemia. This scenario would be easier to support if there has been even mild cognitive impairment at baseline. I do not have any suggestion from Neurology standpoint today. Thanks for asking Neurology to see Ms. Murillo. cc: MD Ming Ritter III, Jr, MD MTDD
--- NOTE | 2019-07-11 15:18 | GASTROENTEROLOGY PROGRESS NOTE ---
DATE: 07/11/2019 SUBJECTIVE: Ms. Murillo is a 78-year-old female resting in bed. She is on a mechanical ventilator, sedated, and unresponsive. OBJECTIVE: Vital signs: Temperature 98.2 degrees, pulse 80, respirations 17, blood pressure 146/55, oxygen saturation 98% on mechanical ventilator. The patient's weight is 209 pounds. BMI is 37.2 kg/m2. General: The patient is on ventilator, unable to assess. HEENT: Pale conjunctivae, scleral icterus Neck: Neck supple. Lungs: Coarse wheezing heard in the anterior mandujano. Cardiovascular: Regular rate and rhythm. Abdomen: Soft, obese. Hypoactive bowel sounds heard in all 4 quadrants. Extremities: No cyanosis, no clubbing. Generalized edema noted bilaterally. Neurologic: Unable to assess patient on mechanical ventilator and sedated. LABS: WBC 6.97, RBC 3.10, hemoglobin 8.9, hematocrit 26.8, platelet count 61,000. PT was 16.2, INR 1.28. Sodium 142, potassium 4.3, chloride 103, carbon dioxide 13, anion gap 26. BUN 121, creatinine 3.2, glucose 186, calcium 8.1. Total bilirubin 0.52, AST 13, ALT 9, alkaline phos 73, albumin 3.2. Chest x-ray has shown moderate increase in the bibasilar airspace opacity. IMPRESSION AND PLAN: 1. Coffee-ground emesis. 2. Upper gastrointestinal bleed. 3. Acute hypoxic respiratory failure. 4. Malnutrition. 5. Anemia. 6. Constipation. 7. Aspiration pneumonia. 8. Chronic renal failure. 9. Encephalopathy. 10. History of tobacco abuse. 11. Duodenal Ulcers 12. Dark esophagus suspect ?Ischemia. PLAN: Ms. Murillo is a 78-year-old female seen by GI for coffee-ground emesis and upper GI bleed. The patient is currently NPO and is on a mechanical ventilator. Her hemoglobin and hematocrit today was 8.9 and 26.8. She has so far received 4 units of blood and 1 unit of platelet. Her platelet count today is 71,000. We will continue to monitor her CBCs and, if her hemoglobin drops below 7, we will transfuse packed red blood cells per protocol. The patient is currently on TPN for nutrition. She is also receiving antibiotic Zosyn for her pneumonia per PCP. We will continue her GI prophylaxis, Protonix twice a day for her GI bleed. The patient is receiving 10 mg suppository twice a day for constipation. We will hold the MiraLAX since the patient is NPO and sedated. We will continue to monitor her CBC, BMP, and follow the plan of care per PCP. This plan has been discussed with Dr. Stein. Please call us for any further questions or concerns. Dictated by ADELA Hurt for Akash Stein MD cc: MD Ming Webber Jr, MD I have seen and examined the patient myself and I agree with the above plan of care. I discussed the above plan of care with the patient's RN at bedside. Please call us with any further questions or concerns. MARTY
--- NOTE | 2019-07-11 15:19 | PROVIDER PROGRESS NOTE ---
Progress Note Subjective: intubated and sedated. Objective: vitals. temperature 98.4, pulse 85, respirations 15, blood pressure 131/58, 02 sat 98% on 30% mechanical ventilation. General: Elderly -[place] female lying in bed on A mechanical ventilator and is receiving sedation. HEENT: normocephalic, Corneal arcus. Trachea midline Skin: warm and dry Neck: supple, 8 cm JVD Cardiovascular: Distant, s1s2 no murmur or gallop irregular rhythm. Respiratory: Coarse wheezes with mechanical ventilation noises anteriorly Abdomen: Obese, soft, nontender, non distended, bowel sounds hypoactive : Garcia in place Extremities: Generalized edema to upper with Trace lower extremity edema. Neurological: sedated. Labs: WBC 6.97, hemoglobin 8.9, hematocrit 26.8, platelet count 61, sodium 142, potassium 4.3, chloride 103, carbon dioxide 13, BUN 121, creatinine 3.2, albumin 3.2. ABGs: pH 7.42, PC02 30, P02 132, HCO3 21.7. Intake 3891, output 2250. Imaging: interval increase in bibasilar airspace opacities. Impression: Acute on chronic kidney disease stage 3. Urine output and Creatinine essentially unchanged. Remains in positive fluid balance despite agressive diuretic therapy. BUN>100. We will get a surgery consult to get access to initiate renal replacement therapy. Metabolic acidosis. On bicarb drip. Hypoalbuminemia. Improved. Anemia. Improved. Nutrition. Receiving clinimix. Medication review.
[2019-07-11] MEDS ORDERED: NS 2,000 ML MISC PRN (15:48)
[2019-07-11] MEDS ORDERED: HEPARIN IV PRN (15:48)
[2019-07-11] MEDS ORDERED: ATIVAN IV PRN (16:29)
[2019-07-11] MEDS: FOLIC ACID 5 MG in NS 50 ML IV SCH (20:44)
[2019-07-11] MEDS: XALATAN 0.005% OPH SOLN LEFT EYE SCH (20:44)
--- NOTE | 2019-07-11 20:49 | OPERATIVE NOTE ---
PROCEDURE DATE: 07/11/2019 PREOPERATIVE DIAGNOSES: 1. Acute renal failure. 2. Acute esophageal ischemia. POSTOPERATIVE DIAGNOSES: 1. Acute renal failure. 2. Acute esophageal ischemia. PROCEDURE: Ultrasound-guided right common femoral vein Vas-Cath placement. SURGEON: Judson Álvarez MD. HAT BINDER: None. ANESTHESIA: Local administered by the surgeon. INTRAOPERATIVE FINDINGS: Ultrasound showed a good caliber right common femoral vein. BRIEF HISTORY: A 78-year-old female who was admitted on 06/29/2019. She has had an extensive workup, but was also found to have ischemic esophagus. Her kidney function has continued to decline, and she needed a Vas-Catheter. The risks, benefits and alternatives were discussed. All questions answered. DESCRIPTION OF PROCEDURE: After informed consent was obtained from the family, the patient remained intubated in her ICU bed. The right groin was prepped and draped in sterile fashion. We elected to use the right groin because if she did have ischemic esophagus, she may need an neck incision in the future and we wanted to keep this out of the way. The right groin was prepped and draped in sterile fashion after the time-out. We used ultrasound to identify the right common femoral vein. Under local anesthetic, I was able to cannulate the right common femoral vein and pass a wire using the Seldinger technique. We dilated up the tract and placed a Vas-Cath in the vein. All ports aspirated and flushed easily. It is nonpulsatile blood. We secured to the skin in the standard fashion. A sterile dressing was applied. Patient tolerated the procedure well. She remained critical in the ICU. cc: MD Ming Josue Jr, MD MTDD
[2019-07-12] MEDS: ZOSYN 2.25 GM in NS 50 ML IV SCH ×4 (02:22→19:58)
[2019-07-12] MEDS: LASIX IV SCH ×3 (02:23→18:29)
[2019-07-12] MEDS: HUMALOG SUBQ SCH ×6 (02:29→21:07)
[2019-07-12] MEDS: ALBUTEROL NEB INH SCH ×4 (03:16→21:25)
[2019-07-12] MEDS: SODIUM CHLORIDE 0.9% INJ SCH ×2 (04:13→14:59)
[2019-07-12] MEDS: PROTONIX IV SCH ×2 (04:13→14:59)
--- NOTE | 2019-07-12 04:16 | PULMONOLOGY PROGRESS NOTE ---
DATE: 07/11/2019 SUBJECTIVE: The patient remains sedated. The patient had some bradycardia earlier, and her propofol was discontinued. OBJECTIVE: The patient has been afebrile for the last 24 hours. Blood pressure 157/67, heart rate 60, respiratory rate 21, and oxygen saturation 99%.HEENT: Pupils are equal and reactive. Oropharynx appears clear. Neck: Supple. Lungs: Chest reveals coarse rhonchi bilaterally. Cardiac: S1-S2. Abdomen: Soft. Extremities: Without edema. LABORATORIES: Chest x-ray reveals endotracheal tube in good position. There is infiltrate at the left base with loss of the left hemidiaphragm. Probable effusions bilaterally. Arterial blood gas reveals pH 7.42, pCO2 of 30, PO2 of 132 with a lactate of 3.4. IMPRESSION: A 78-year-old with: 1. Acute hypoxemic respiratory failure. 2. Global encephalopathy. 3. Bilateral pneumonia. 4. Necrosis/pseudomembrane formation in the esophagus. 5. Diabetes mellitus. 6. Acute on chronic renal failure. DISCUSSION: A 78-year-old with problems outlined above. She remains critically ill. She is not a candidate for weaning today. PLAN: 1. Continue mechanical ventilation. 2. Additional bicarbonate for metabolic acidosis. 3. Continue treatment of esophageal injury per GI and medicine. 4. End-stage renal disease with acute kidney injury to be managed by Dr. Burgos. Time spent in critical care management: 30+ minutes cc: MD Ming Castro Jr, MD MTDD
[2019-07-12 05:15] LABS: ALLEN TEST YES; BE -1.9 mmoll (-3.0-3.0); BLOOD TYPE ARTERIAL; HCO3-(ACT) 23.4 mmoll (20.0-26.0); O2(CT) 14.3 mL/dL (15.0-23.0); O2HB 95.8 % (95.0-99.0); PCO2(98.6) 27 mmHg (35-45); PO2(98.6) 132 mmHg (60-100); SAMPLE BLOOD; SAO2 98.9 % (95.0-100.0); SRATE 15 BPM; THB 10.4 g/dL (11.5-17.4); TVOL 550 mL; pH(98.6) 7.49 (7.35-7.45)
[2019-07-12] MEDS: CLINIMIX E 4.25%-5% SOLUTION 1,000 ML IV SCH ×2 (05:16→18:20)
[2019-07-12 05:17] LABS: MODALITY VENTILATOR
[2019-07-12 05:53] LABS: ALB/GLOB RATIO 1.8; ALBUMIN 3.3 g/dL (3.5-5.0); CALCIUM 8.2 mg/dL (8.8-10.2); CREATININE 2.2 mg/dL (0.5-0.9); POTASSIUM 3.2 mmol/L (3.5-5.1); TOTAL BILIRUBIN 0.68 mg/dL (0.20-1.00); TOTAL PROTEIN 5.1 g/dL (6.3-8.3)
[2019-07-12] MEDS: MORPHINE IV PRN ×2 (06:18→14:35)
[2019-07-12 07:38] LABS: BASO# 0.01 X1000 (0.0-0.2); BASO% 0.1 % (0.0-0.8); EOS# 0.01 X1000 (0.0-0.7); EOS% 0.1 % (0.0-10.0); HEMATOCRIT 27.5 % (37.0-47.0); HEMOGLOBIN 9.2 g/dL (12.0-16.0); IMM GRAN# 0.08 X1000 (0.0-0.04); LYMPH# 0.72 X1000 (1.2-3.4); LYMPH% 9.4 % (20.5-51.1); MCH 28.7 PG (27-31); MCHC 33.5 g/dL (33-37); MCV 85.7 FL (81-99); MONO# 0.25 X1000 (0.11-0.59); MONO% 3.3 % (1.7-9.3); MPV 10.6 FL (7.4-10.4); NEUT# 6.55 X1000 (1.4-6.5); NEUT% 86.1 % (42.2-75.2); PLT 52 X1000 (130-400); RBC 3.21 XMIL (4.2-5.4); RDW 14.9 % (11.5-14.5); WBC 7.62 X1000 (4.8-10.8)
[2019-07-12] MEDS ORDERED: NS 2,000 ML MISC PRN (07:50)
--- NOTE | 2019-07-12 07:50 | Diag Imaging Result Doc PS360 ---
EXAM: CHEST-PORTABLE INDICATION: respiratory failure TECHNIQUE: One view COMPARISON: 07/11/2019 FINDINGS: Support tubes and lines are in stable positions. Mild bibasilar airspace opacities are stable to marginally improved. No new consolidation is identified. Cardiac silhouette is stable. IMPRESSION: Stable to marginal improvement of bibasilar airspace opacities. Electronically signed by Benitez Bloom 07/12/2019 7:47 AM
[2019-07-12 08:02] LABS: BANDS 6 % (0-1); LYMPHS 6 % (21-51); MONO 4 % (1-9); SEGS 84 % (42-75)
[2019-07-12] MEDS ORDERED: POTASSIUM CHLORIDE 40 MEQ/SWI 40 MEQ/100 ML IVPB IV ONE (08:24)
[2019-07-12] MEDS ORDERED: VANCOMYCIN 1 GM/NS 1 GM/250 ML IVPB IV SCH (08:30)
[2019-07-12] MEDS: DULCOLAX PR SCH (09:43)
[2019-07-12] MEDS: ROCALTROL PO SCH (09:43)
[2019-07-12] MEDS: MIRALAX NG SCH (09:43)
--- NOTE | 2019-07-12 11:02 | PROGRESS NOTE ---
DATE: 07/12/2019 SUBJECTIVE: The patient is paralyzed on the ventilator, and is not responsive. OBJECTIVE: Vital Signs: Blood pressure 134/55, respirations 16, pulse 65, and temperature 97 degrees Fahrenheit. HEENT: She is normocephalic. Lungs: Coarse rhonchi anteriorly and some rales. Heart: Regular rate and rhythm without murmurs, gallops, or friction rubs. Abdomen: Soft. Active bowel sounds. No organomegaly or tenderness. Neurological: Unable to evaluate at this time. LABORATORY DATA: Lab work shows a white count 7620, hemoglobin 9.2, and hematocrit 27.5. Blood gas shows a pH of 7.49, pCO2 of 27, PO2 132, lactate has gone up to 5.2. Potassium is a little low at 3.2. Creatinine is better at 2.2. BUN is better at 90. The patient did have Staph epidermidis in her sputum. She is on vancomycin. Chest x-ray is stable to mild improvement with her pulmonary edema and pneumonia. ASSESSMENT: 1. Upper gastrointestinal bleed. 2. Acute respiratory arrest. 3. Necrotic esophagus. 4. Peptic ulcer disease. 5. Acute kidney injury with renal failure. 6. Bradycardia resolved. 7. Pneumonia. 8. Pleural effusions. 9. Possible ischemic bowel. 10. Thrombocytopenia. 11. Diabetes mellitus. 12. Hypokalemia. It should be noted, platelet count still low at 52,000. PLAN: We will supplement the patient's potassium. She had one family member in the room this morning when I talked with him. I have explained that she is still very ill, and all we can do at this point is continue to support her. She has shown some improvements with her pneumonia, and with her kidney function. We will continue to support. cc: Ming Palmer Jr, MD
--- NOTE | 2019-07-12 13:06 | PROGRESS NOTE ---
DATE: 07/12/2019 Ms. Murillo continues intubated and mechanically ventilated. She has not had any significant change neurologically based on very limited assessment with her sedation and paralytics on board. I do not have any new thoughts or new suggestions from a neurology standpoint today. There was one family member present in the room but he was sleeping peacefully and I did not disturb him. Thanks for asking Neurology to see Ms. Murillo. cc: MD Ming Ritter III, Jr, MD
--- NOTE | 2019-07-12 15:13 | GASTROENTEROLOGY PROGRESS NOTE ---
DATE: 07/12/2019 SUBJECTIVE: Ms. Murillo is a 78-year-old female resting in bed. She is on mechanical ventilator, sedated and unresponsive. Family at the bedside. Dialysis nurse was at the bedside getting ready to start her dialysis. OBJECTIVE: Vital Signs: Temperature is 97.0 degrees, pulse 60, respirations 20, blood pressure 165/61, oxygen saturation 98% on mechanical ventilator. The patient's weight is 204 pounds. BMI is 36.2 kg/m2. General: The patient is on a ventilator, unable to assess. HEENT: Pale conjunctivae. scleral icterus. PERRL. Neck: Supple. Lungs: Coarse wheezing heard in the anterior mandujano. Cardiovascular: regular rate and rhythm. Abdomen: Soft, obese. Hypoactive bowel sounds heard in all 4 quadrants. Extremities: No clubbing, no cyanosis. Generalized edema noted in the lower extremities. Neurologic: Unable to assess the patient. LAB: WBC 7.62, RBC 3.21, hemoglobin 9.2, hematocrit 27.5, platelet count 52,000, sodium 143, potassium 3.2, chloride 101, carbon dioxide 18, anion gap 24, BUN 19, creatinine 2.2, glucose 158, calcium 8.2, total bilirubin 0.68, AST 14, ALT 11, alkaline phos 76, albumin 3.3. The patient's urinalysis on 07/09 showed trace of protein, small amount of blood, a small amount of leukocytes. Occult blood was positive. Sputum culture showed staphylococcus epidemidis. Chest x-ray showed stable to marginal improvement of the bibasilar airspace opacities. IMPRESSION AND PLAN: Upper GI bleed Esophageal necrosis Duodenal ulcers Anemia Acute hypoxic respiratory failure Malnutrition Constipation Encephalopathy Aspiration pneumonia Acute on chronic kidney disease stage III - on dialysis PLAN: Ms. Murillo is a 78-year-old female, seen by GI for upper GI bleed. The patient is currently NPO and on a mechanical ventilator. Her hemoglobin today was 9.2 and 27.5, it has started to trend upwards. The patient has so far received 4 units of packed red blood cells and 1 unit of platelets. We will continue to monitor her CBCs and if her hemoglobin drops below 7, we will transfuse packed red blood cells per protocol. The patient is currently on TPN for her nutrition. She is also receiving Zosyn for her aspiration pneumonia. The patient is on Dulcolax and MiraLAX for bowel regimen, but currently it is on hold. Patient is having liquid green bowel movements. We will continue her GI prophylaxis, Protonix IV twice a day for her GI bleed. We will continue to monitor her CBC and BMP and follow the plan of care per PCP. This plan is discussed with Dr. Aguilar. Please call us for any further questions or concerns. Dictated by ADELA Hurt for Dipesh Aguilar MD cc: Ming Palmer Jr, MD Physician Attestation I have seen and examined the patient. I have discussed and reviewed the the note by Megan CHAPMAN and agree with findings and plan as documented. Ms. Murillo had some improvement despite her continued elevated lactate, which is likely 2/2 to renal failure. She is on minimal vent setting and no longer requiring blood transfusions. Will continue supportive care. Transfuse pRBCs prn for hgb <7, goal 7-8. Platelets are at goal. Will follow with you. MTDD
[2019-07-12] MEDS: XALATAN 0.005% OPH SOLN LEFT EYE SCH (19:59)
[2019-07-12] MEDS: FOLIC ACID 5 MG in NS 50 ML IV SCH (19:59)
--- NOTE | 2019-07-12 22:07 | NEPHROLOGY PROGRESS NOTE ---
DATE: 07/12/2019 SUBJECTIVE: She remains sedated on the ventilator. OBJECTIVE: Vital Signs: Blood pressure 127/45, heart rate 83, respirations 19. General: No acute distress. Heart: Irregular. Lungs: Equal. Abdomen: Benign. Extremities: 2+ edema. IMPRESSION: Acute kidney injury with volume overload. Continue SLED. 4 K bath with a goal of 5- 6 L ultrafiltration today. Repeat tomorrow. cc: MD Ming Gonzalez Jr, MD
[2019-07-13] MEDS: MIRALAX NG SCH ×3 (01:49→21:10)
[2019-07-13] MEDS: DULCOLAX PR SCH ×3 (01:49→20:19)
[2019-07-13] MEDS: LASIX IV SCH ×2 (01:50→05:44)
[2019-07-13] MEDS: ZOSYN 2.25 GM in NS 50 ML IV SCH ×4 (01:50→21:04)
[2019-07-13] MEDS: HUMALOG SUBQ SCH ×6 (02:13→21:09)
[2019-07-13] MEDS: ALBUTEROL NEB INH SCH ×4 (03:08→22:05)
[2019-07-13 04:41] LABS: ALLEN TEST YES; BE -6.6 mmoll (-3.0-3.0); BLOOD TYPE ARTERIAL; HCO3-(ACT) 19.8 mmoll (20.0-26.0); METHB 1.1 % (0.0-1.5); O2(CT) 11.5 mL/dL (15.0-23.0); O2HB 96.3 % (95.0-99.0); PCO2(98.6) 31 mmHg (35-45); PO2(98.6) 95 mmHg (60-100); SAMPLE BLOOD; SAO2 99.2 % (95.0-100.0); SRATE 15 BPM; THB 8.4 g/dL (11.5-17.4); TVOL 550 mL; pH(98.6) 7.37 (7.35-7.45)
[2019-07-13 04:42] LABS: MODALITY VENTILATOR
[2019-07-13] MEDS: PROTONIX IV SCH ×2 (04:54→16:11)
[2019-07-13] MEDS ORDERED: ALBUMIN 25% IV ONE ×2 (05:30→06:40)
[2019-07-13] MEDS ORDERED: NS 2,000 ML MISC PRN (06:51)
[2019-07-13 07:34] LABS: ALB/GLOB RATIO 1.8; ALBUMIN 3.5 g/dL (3.5-5.0); CALCIUM 8.7 mg/dL (8.8-10.2); CREATININE 1.6 mg/dL (0.5-0.9); POTASSIUM 4.8 mmol/L (3.5-5.1); TOTAL BILIRUBIN 0.64 mg/dL (0.20-1.00); TOTAL PROTEIN 5.4 g/dL (6.3-8.3)
[2019-07-13] MEDS: ROCALTROL PO SCH (08:12)
--- NOTE | 2019-07-13 08:48 | Diag Imaging Result Doc PS360 ---
CHEST-PORTABLE - 07/13/2019 INDICATION: respiratory failure COMPARISON: 07/12/2019 FINDINGS: Support lines and tubes are stable. Stable moderate ill-defined bibasilar infiltrates or atelectasis. No large pleural effusion. No new infiltrates. Heart size is top normal. IMPRESSION: No change from prior. Electronically signed by Dominic Lopez 07/13/2019 8:46 AM
[2019-07-13] MEDS: CLINIMIX E 4.25%-5% SOLUTION 1,000 ML IV SCH (09:33)
--- NOTE | 2019-07-13 11:55 | PROGRESS NOTE ---
DATE: 07/13/2019 SUBJECTIVE: The patient remains on the ventilator managed per Pulmonology. She is stable overall and not requiring pressor agents. She did receive some albumin last evening per Dr. Burgos, which seemed to help her blood pressure some. She remains obtunded and has been off sedation since yesterday. OBJECTIVE: Vital signs: Afebrile, pulse 61, respirations 16, breathing slightly above the ventilator on occasion, blood pressure 134/51, O2 saturation on FiO2 30% 98%. CV: RRR. Lungs: Rhonchi bilaterally especially at the bases. Abdomen: Nondistended. Extremities: No major edema. Neurologic: Patient nonresponsive. ABG on FiO2 30%, pH 7.37, pCO2 31, pO2 95, HCO3 19.8, O2 saturation 96.3. Lactate 5.8 elevated from 5.2 yesterday. Sodium 143, potassium 4.8, chloride 105, CO2 17, BUN 43, creatinine 1.6, blood sugars in the 100s, calcium 8.7, AST 20, ALT 16, alkaline phosphatase 68, total protein 5.4, albumin 3.5. Blood cultures all remain negative. Sputum culture from 07/09/2019 growing out Staph epidermidis sensitive to vancomycin. Urine culture no growth. Chest x-ray this morning reveals no change from prior, stable moderate ill-defined bibasilar infiltrates or atelectasis, no new infiltrates. ASSESSMENT: 1. History of upper gastrointestinal bleed. 2. History of respiratory arrest. 3. Necrosis of the esophagus. 4. Peptic ulcer disease. 5. Acute kidney injury on hemodialysis per Dr. Burgos with improving renal function overall. 6. Pneumonia likely aspiration related. 7. Thrombocytopenia. 8. Diabetes mellitus. PLAN: Continue supportive care with ventilator support per Pulmonary. She is off sedation and Dr. Almazan is following her mental status. She remains on IV PPI at high doses. She is on Zosyn and vancomycin for pneumonia along with nebulizer treatments. She is on TPN and so far not requiring any pressor agents. She is on sliding scale insulin. Continue supportive measures. I spoke with family member x2, who are in attendance today. cc: MD Ming Murdock Jr, MD
[2019-07-13] MEDS: SODIUM CHLORIDE 0.9% INJ SCH (16:11)
--- NOTE | 2019-07-13 18:24 | NEPHROLOGY PROGRESS NOTE ---
DATE: 07/13/2019 SUBJECTIVE: She remains sedated, on the ventilator. OBJECTIVE: Vital Signs: Blood pressure 135/58, heart rate 63, respirations 17. Intake 1.4 L, output 5.8 L. Again, unresponsive, no acute distress. Skin: Warm and dry. Heart: Regular. Lungs: Equal. No crackles. Abdomen: Soft, nontender. Bowel sounds present. Extremities: Minimal edema. No clubbing or cyanosis. IMPRESSION/PLAN: Acute kidney injury. Low urine output. Electrolytes are in target. Still moderate metabolic acidosis. This will be managed with dialysis. Goal of another 5-6 L ultrafiltration. Her blood pressure was low overnight, but responded well to albumin. cc: MD Ming Gonzalez Jr, MD
[2019-07-13] MEDS ORDERED: VANCOMYCIN 1 GM/NS 1 GM/250 ML IVPB IV ONE (20:00)
[2019-07-13] MEDS: FOLIC ACID 5 MG in NS 50 ML IV SCH (20:19)
[2019-07-13] MEDS: XALATAN 0.005% OPH SOLN LEFT EYE SCH (20:20)
[2019-07-13] MEDS: LEVOPHED 8 MG in D5 1/2 NS 250 ML IV SCH (20:40)
[2019-07-14] MEDS: CLINIMIX E 4.25%-5% SOLUTION 1,000 ML IV SCH ×2 (00:48→15:38)
[2019-07-14] MEDS: HUMALOG SUBQ SCH ×6 (00:49→20:02)
[2019-07-14] MEDS: ZOSYN 2.25 GM in NS 50 ML IV SCH ×2 (03:13→10:07)
[2019-07-14] MEDS: PROTONIX IV SCH ×2 (03:13→15:38)
[2019-07-14] MEDS: ALBUTEROL NEB INH SCH ×4 (03:20→21:09)
[2019-07-14 04:42] LABS: ALLEN TEST YES; BE -8.9 mmoll (-3.0-3.0); BLOOD TYPE ARTERIAL; METHB 1.3 % (0.0-1.5); O2(CT) 13.7 mL/dL (15.0-23.0); O2HB 96.4 % (95.0-99.0); PCO2(98.6) 28 mmHg (35-45); PO2(98.6) 109 mmHg (60-100); SAMPLE BLOOD; SAO2 98.8 % (95.0-100.0); SRATE 15 BPM; TVOL 550 mL; pH(98.6) 7.35 (7.35-7.45)
[2019-07-14 04:43] LABS: MODALITY VENTILATOR
[2019-07-14 05:04] LABS: ALB/GLOB RATIO 1.9; CALCIUM 9.2 mg/dL (8.8-10.2); CREATININE 1.5 mg/dL (0.5-0.9); POTASSIUM 5.4 mmol/L (3.5-5.1); TOTAL BILIRUBIN 0.66 mg/dL (0.20-1.00); TOTAL PROTEIN 6.1 g/dL (6.3-8.3)
--- NOTE | 2019-07-14 08:43 | Diag Imaging Result Doc PS360 ---
CHEST-PORTABLE - 07/14/2019 INDICATION: respiratory failure COMPARISON: 07/13/2019 FINDINGS: Support lines and tubes are stable. There has been improvement in the central infiltrates bilaterally. There is some persistent nonspecific infiltrate or atelectasis in the lower lobes bilaterally. Heart size remains normal. No large pleural effusion. IMPRESSION: Improvement in the faint central infiltrates/pulmonary edema. Electronically signed by Dominic Lopez 07/14/2019 8:41 AM
[2019-07-14] MEDS: DULCOLAX PR SCH ×2 (08:55→20:01)
[2019-07-14] MEDS: MIRALAX NG SCH ×2 (09:03→22:12)
[2019-07-14] MEDS: ROCALTROL PO SCH (09:04)
--- NOTE | 2019-07-14 14:37 | PROGRESS NOTE ---
DATE: 07/14/2019 SUBJECTIVE: Patient remains in the ICU on ventilatory support by Pulmonology/Critical Care. She is requiring very low-dose Levophed for blood pressure support. She had 1 severe coughing spell where she opened her eyes today, but otherwise has had no spontaneous improvement in her mentation off of sedation. OBJECTIVE: Temperature maximum 99.9 degrees rectal, pulse 80, respirations 19, blood pressure 141/47 on Levophed, O2 saturation 95%.Cardiovascular: RRR. Lungs: Rhonchi bilaterally, especially at the bases. Abdomen: Active bowel sounds. Nondistended. Extremities: No edema. Neurologic: Patient unresponsive. DIAGNOSTIC STUDIES: Sodium 141, potassium 5.4, chloride 103, CO2 of 16, BUN 38, creatinine 1.5, blood sugars in the 100s, calcium 9.2, total bilirubin 0.66, AST 16, ALT 17, alkaline phosphatase 70, total protein 6.1, albumin 4.0. ABG on 30% FiO2 reveals pH 7.35, pCO2 of 28, PO2 of 109, HCO3 of 18, O2 saturation 98.8, lactate 6.0. Chest x-ray this morning reveals improvement in the faint central infiltrates/pulmonary edema ASSESSMENT: 1. History of upper gastrointestinal bleed, stable on PPI. 2. History of respiratory arrest. Rule out brain injury/global encephalopathy. 3. Peptic ulcer disease. 4. Acute kidney injury on dialysis now every other day per Dr. Burgos with next hemodialysis tomorrow. 5. Possible aspiration pneumonia. 6. Thrombocytopenia. 7. Diabetes mellitus. PLAN: Patient remains on low-dose Levophed for BP support. She is on ventilatory support. She is on IV antibiotics of Zosyn and vancomycin. She is on IV PPI at high doses. She is on TPN with sliding scale insulin as required. I spoke with the family in detail and they desire for Dr. Jeronimo, Infectious Disease, to see the patient, so that consult will be put in. Continue present supportive measures. Appreciate all consultants. cc: MD Ming Murdock Jr, MD
[2019-07-14] MEDS: SODIUM CHLORIDE 0.9% INJ SCH (15:38)
--- NOTE | 2019-07-14 16:46 | INFECTIOUS DISEASE CONSULT REP ---
DATE: 07/14/2019 CONCLUSION: I was asked to see the patient regarding the possibility of pneumonia. It appears on her chest x-ray that she has pulmonary venous congestion, but she could also have a possible pneumonia due to aspiration. She did grow Staph epidermidis from her sputum which I think would be a very unlikely organism to be causing pneumonia, but it might be possible. RECOMMENDATIONS: I have ordered a procalcitonin level. I have discontinued Zosyn and placed the patient on cefepime at a dose of 1 g IV after each dialysis. DISCUSSION: The patient is intubated and sedated. A family member was present but she did not know much about the patient's health issues. The patient came in initially because she was having weakness, agitation and urinary incontinence. The patient's lab and radiographic study show a chest x-ray which showed improvement in the patient's pulmonary edema. Blood and urine cultures are sterile. Sputum grew Staph epidermidis, as mentioned above. The patient's blood gases show a pH of 7.35, a PO2 of 109, and a pCO2 of 28. CBC shows a white count of 7,620, hemoglobin 9.2, and platelet count 52,000. The patient had been taking Zosyn for 8 days, but as mentioned above, I stopped it and put the patient on cefepime. PAST MEDICAL HISTORY: Positive for chronic kidney disease, diabetes mellitus, diverticulosis, hypertension, and hyperlipidemia. FAMILY HISTORY: Positive for hypertension and heart disease. SOCIAL HISTORY: The patient lives with her family. She does not smoke cigarettes or drink alcoholic beverages. REVIEW OF SYSTEMS: Unable to be obtained. PHYSICAL EXAMINATION: Vital Signs: Temperature is 99.9 degrees, pulse 80, respiration 19, blood pressure 141/47. She is 5 feet 3 inches tall, weighs 181 pounds. General: This is an obese, elderly female. She is intubated and sedated. Head, eyes, ears, nose, and throat: The patient has an orotracheal tube in place. There is no drainage from the nose or ears. I was unable to get a good view of the patient's mouth. Neck: No meningismus. Lungs: There were bilateral rhonchi. Cardiovascular: Heart rate was regular. Abdomen: Soft and it did not appear to be tender. In the right groin area there is a dialysis catheter present. The site is not purulent. Neurologic: The patient is sedated. She did not respond to verbal stimuli. There is no tremor. Extremities: The patient has a PICC in the left arm. The PICC site is not purulent or swollen. Integument: No rash noted. Thank you for the consult. cc: MD Ming Cantrell Jr, MD
[2019-07-14] MEDS: FOLIC ACID 5 MG in NS 50 ML IV SCH (20:01)
[2019-07-14] MEDS: XALATAN 0.005% OPH SOLN LEFT EYE SCH (20:02)
[2019-07-15] MEDS: ALBUTEROL NEB INH SCH ×4 (03:10→21:22)
[2019-07-15] MEDS: PROTONIX IV SCH ×2 (04:39→16:40)
[2019-07-15 04:53] LABS: ALLEN TEST YES; BE -14.5 mmoll (-3.0-3.0); BLOOD TYPE ARTERIAL; HCO3-(ACT) 13.6 mmoll (20.0-26.0); METHB 1.8 % (0.0-1.5); O2(CT) 12.9 mL/dL (15.0-23.0); PCO2(98.6) 40 mmHg (35-45); PO2(98.6) 79 mmHg (60-100); SAMPLE BLOOD; SAO2 96.6 % (95.0-100.0); SRATE 15 BPM; THB 9.8 g/dL (11.5-17.4); TVOL 550 mL
[2019-07-15 04:54] LABS: pH(98.6) 7.14 (7.35-7.45)
[2019-07-15 04:55] LABS: MODALITY VENTILATOR
[2019-07-15 05:45] LABS: BASO# 0.01 X1000 (0.0-0.2); BASO% 0.1 % (0.0-0.8); EOS# 0.11 X1000 (0.0-0.7); EOS% 1.2 % (0.0-10.0); HEMATOCRIT 30.2 % (37.0-47.0); HEMOGLOBIN 9.2 g/dL (12.0-16.0); IMM GRAN# 0.02 X1000 (0.0-0.04); IMM GRAN% 0.2 % (0.0-0.5); LYMPH# 0.95 X1000 (1.2-3.4); MCH 28.4 PG (27-31); MCHC 30.5 g/dL (33-37); MCV 93.2 FL (81-99); MONO# 0.11 X1000 (0.11-0.59); MONO% 1.2 % (1.7-9.3); MPV 11.5 FL (7.4-10.4); NEUT% 87.3 % (42.2-75.2); PLT 42 X1000 (130-400); RBC 3.24 XMIL (4.2-5.4); RDW 15.6 % (11.5-14.5)
[2019-07-15] MEDS: CLINIMIX E 4.25%-5% SOLUTION 1,000 ML IV SCH ×2 (06:07→19:52)
[2019-07-15] MEDS: HUMALOG SUBQ SCH ×5 (06:08→21:26)
[2019-07-15 07:00] LABS: ALB/GLOB RATIO 1.5; ALBUMIN 3.7 g/dL (3.5-5.0); CALCIUM 9.2 mg/dL (8.8-10.2); CREATININE 3.2 mg/dL (0.5-0.9); TOTAL BILIRUBIN 0.9 mg/dL (0.20-1.00); TOTAL PROTEIN 6.1 g/dL (6.3-8.3)
--- NOTE | 2019-07-15 07:03 | Diag Imaging Result Doc PS360 ---
EXAM: CHEST-PORTABLE 07/15/2019 HISTORY: respiratory failure TECHNIQUE: AP portable semiupright at 0500 COMMENT: There is an endotracheal tube with its tip below the thoracic inlet. There is a left PICC line with its tip just above the right atrium. There is some retrocardiac opacity in the left lower lobe and a hazy opacity is present over the right hemidiaphragm laterally. Compared to 07/14/2019 considering differences in positioning this is not significantly changed. IMPRESSION: Left lower lobe atelectasis versus pneumonia plus minus pulmonary edema. Electronically signed by Hever Matthews 07/15/2019 7:00 AM
[2019-07-15 07:23] LABS: POTASSIUM 6.6 mmol/L (3.5-5.1)
--- NOTE | 2019-07-15 07:40 | INFECTIOUS DISEASE PROGRESS NO ---
DATE: 07/15/2019 PRESENT ILLNESS: The patient has pulmonary venous congestion, and there is the possibility that she could also have a component of pneumonia. The patient also has a very low IgG level of 339. MEDICATIONS: The patient is getting cefepime and vancomycin after each dialysis. PHYSICAL EXAMINATION: Vital Signs: Temperature is 99 degrees, pulse 87, respirations 17, blood pressure 126/64. General: This is an obese, elderly female. She is intubated. Head/Eyes/Ears/Nose/Throat: No drainage noted from the nose or ears. She does have an orotracheal tube in place. Neck: No stiffness. Lungs: There were bilateral rhonchi. Cardiovascular: Heart rate is regular. Abdomen/Genitourinary: Soft and not tender. In the right groin area, there is a tunneled dialysis catheter. The site is not swollen or purulent. Extremities: The patient has a PICC in the left arm. That site too is also not swollen or draining. Neurologic: The patient is sedated. She does not respond to verbal stimuli. There is no tremor. LABORATORY AND X-RAY: Chest x-ray was taken today. It has not been read by the radiologist. To me it looks like there is a decrease in the congestion in the lungs. The patient's IgG level was 339. IgA was 108. Liver function studies are normal. CBC shows a white count of 9500, hemoglobin 9.2, and platelet count 42,000. Blood gases show a pH of 7.14, a PO2 of 79, and a pCO2 of 40. Creatinine is 1.5, GFR is 41. ASSESSMENT AND PLAN: The patient may have a pneumonia underlying pulmonary venous congestion. My plan is to continue with cefepime and vancomycin after dialysis. Also, I have ordered IVIG 20 grams to be given today and tomorrow intravenously. COMORBIDITIES: The patient has chronic kidney disease, diabetes mellitus, diverticulosis, hypertension, and hyperlipidemia. cc: MD Ming Cantrell Jr, MD
[2019-07-15] MEDS ORDERED: NS 2,000 ML MISC PRN (08:08)
[2019-07-15] MEDS: KAYEXALATE PR SCH ×2 (09:07→11:01)
[2019-07-15] MEDS: ROCALTROL PO SCH (09:07)
[2019-07-15] MEDS: MIRALAX NG SCH ×2 (09:07→22:04)
[2019-07-15] MEDS: DULCOLAX PR SCH ×2 (09:08→22:04)
[2019-07-15] MEDS ORDERED: SODIUM BICARBONATE 8.4% IV PUSH ONE (09:15)
--- NOTE | 2019-07-15 10:00 | PROGRESS NOTE ---
DATE: 07/15/2019 SUBJECTIVE: The patient is still paralyzed, on the ventilator. Family members were at the bedside. I did talk with them about her today. OBJECTIVE: Blood pressure is 130/40. It has been lower, down to 101 systolic. Respirations 18, pulse 84, temperature 97.5 degrees Fahrenheit. HEENT: She is normocephalic. EOMs intact. PERRLA. Throat clear. Lungs: Have a few rales anteriorly. Chest x-ray actually shows some improvement in the congestion and the right lower lobe infiltrate. Heart: Regular rate and rhythm without murmurs, gallops, or friction rubs. Abdomen: Soft. Active bowel sounds. No organomegaly or tenderness. Neurological Examination: It is hard to evaluate. Laboratory: Shows a white count of 9500, hemoglobin 9.2. PH is worse at 7.14, PO2 is 79. Respirations 40. Lactate came down from 6 to 5.1. Potassium, however, has gone up to 6.6. I had earlier ordered a Kayexalate enema but did not realize patient was already going on dialysis over the weekend. They had called me about this earlier and did not mention it. Possibly, this can be corrected with the dialysis that she is having today. We will give Dr. Burgos the choice about whether to treat this just with dialysis or whether we also need the Kayexalate. Creatinine is up to 3.2. It was down to 1.5 yesterday. She did have dialysis on Monday. BUN is 83. ASSESSMENT: 1. Upper gastrointestinal bleed. 2. Acute respiratory arrest. 3. Necrotic esophagus. 4. Peptic ulcer disease. 5. Acute kidney injury with renal failure. 6. Bradycardia, resolved. 7. Pneumonia. 8. Pleural effusions. 9. Possible ischemic bowel. 10. Thrombocytopenia. 11. Diabetes mellitus. 12. Now hyperkalemia. PLAN: Continue dialysis. Continue support. The patient is still critical. cc: Ming Palmer Jr, MD
[2019-07-15 10:07] LABS: ALLEN TEST YES; BLOOD TYPE ARTERIAL; HCO3-(ACT) 14.8 mmoll (20.0-26.0); METHB 2.6 % (0.0-1.5); O2HB 95.9 % (95.0-99.0); PCO2(98.6) 42 mmHg (35-45); PO2(98.6) 265 mmHg (60-100); SAMPLE BLOOD; SAO2 99.5 % (95.0-100.0); SRATE 15 BPM; THB 9.9 g/dL (11.5-17.4); TVOL 550 mL
[2019-07-15 10:11] LABS: MODALITY VENTILATOR
[2019-07-15 10:12] LABS: pH(98.6) 7.16 (7.35-7.45)
[2019-07-15] MEDS: GAMUNEX-C 10% IV SCH (10:18)
--- NOTE | 2019-07-15 10:47 | NEPHROLOGY PROGRESS NOTE ---
DATE: 07/15/2019 SUBJECTIVE: The patient is resting in bed. She remains unresponsive and mechanically ventilated. OBJECTIVE: Vital Signs: Temperature 97.5 degrees, pulse 84, respiratory rate 18, blood pressure 130/40. Intake 1.8 L. Output 30 mL. General: This is an acutely ill- appearing female resting in bed. Again, unresponsive, mechanically ventilated. HEENT: Normocephalic, atraumatic. She is orally intubated. Neck: Supple. Trachea midline. Cardiovascular: Regular. No murmur. Pulmonary: Decreased breath sounds. No wheezes or rales. Mechanically ventilated. Abdomen: Hypoactive bowel sounds. : Garcia catheter. Extremities: Trace edema. Integumentary: Skin is warm and dry. Lab Data: WBC of 9.5, hemoglobin 9.2, platelets of 42,000. Sodium 140, potassium 6.6, CO2 of 13, creatinine 3.2, albumin 3.7. ASSESSMENT AND PLAN: 1. Acute kidney injury, oliguric. She has elevated potassium today, continued acidosis. We will plan sustained low-efficiency dialysis with a goal of around 2 L fluid removal as tolerated. Albumin level today is 3.7. Continue to monitor her blood pressure while dialyzing. 2. Pneumonia, underlying pulmonary venous congestion. See above for plan. She has been seen by Dr. Jeronimo and is on cefepime and vancomycin after dialysis. 3. Electrolytes, acid-base balance. See #1 for plan. Dictated by ADELA Ramirez for Ilia Burgos MD Face to face encounter, data reviewed, discussed with Loraine Stauffer on 07/15/19. I agree with the above assessment and plan of care. cc: MD Ming Gonzalez Jr, MD MTDD
[2019-07-15] MEDS: MAXIPIME 1 GM in NS 50 ML IV SCH (12:49)
[2019-07-15] MEDS ORDERED: VANCOMYCIN 1 GM/NS 1 GM/250 ML IVPB IV ONE (13:00)
--- NOTE | 2019-07-15 14:56 | PROGRESS NOTE ---
DATE: 07/15/2019 LOCATION: ICU bed 10. Ms. Murillo continues intubated, mechanically ventilated, heavily sedated. There is limited lateral eye movement with passive head turning. I did not examine her further. I discussed situation briefly with family at the bedside. No new thoughts from Neurology standpoint. Thank you for asking us to see Ms. Murillo. cc: MD Ming Ritter III, Jr, MD MTDD
--- NOTE | 2019-07-15 15:21 | GASTROENTEROLOGY PROGRESS NOTE ---
DATE: 07/15/2019 Ms. Murillo is a 78-year-old female resting in bed. She is on a mechanical ventilator, sedated. Family at the bedside dialysis. She had dialysis going on at the bedside. OBJECTIVE: Vital signs: Temperature 97.7 degrees, pulse 86, respirations 15, blood pressure 127/46, oxygen saturation 99%, she is on a mechanical ventilator. Her weight is 185 pounds, BMI 32.9 kg/m2. General: Patient is sedated, unresponsive . HEENT: Pale conjunctivae. Sclerae icterus. PERRL. Neck: Supple. Lungs: Coarse wheezing heard in the anterior mandujano. Cardiovascular: Regular rate and rhythm. Abdomen: Obese, soft, distended. Hypoactive bowel sounds heard in all 4 quadrants. Extremities: Generalized edema in the lower extremities. No clubbing, no cyanosis. Neurologic: Unable to assess the patient. LAB: WBC 9.50, RBC 3.24, hemoglobin 9.2, hematocrit 30.2, platelet count 42,000, PT is 6.2, INR is 1.28. Sodium 140, potassium 6.6, chloride 101, carbon dioxide 13, anion gap 26, BUN 83, creatinine 3.2, glucose 118, calcium 9.2, total bilirubin 0.90, AST 18, ALT 15, alkaline phosphatase is 73, albumin is 6.1. IMPRESSION AND PLAN: 1. Upper gastrointestinal bleed. 2. Esophageal necrosis. 3. Duodenal ulcers . 4. Anemia. 5. Acute hypoxic respiratory failure. 6. Malnutrition. 7. Encephalopathy. 8. Aspiration pneumonia. PLAN: Patient has so far received 4 units of packed red blood cells and 1platelet. She is on TPN for her nutrition, for a bowel regimen she is on Dulcolax and MiraLAX which is on hold as she is NPO. She is on GI prophylaxis Protonix 40 mg twice a day. We will continue to monitor her CBCs, BMPs and follow the plan of care per PCP. This plan was discussed with Dr. Sims. Please call us for any further questions or concerns. Dictated by ADELA Hurt for Kenneth Sims MD cc: MD Ming Carney Jr, MD MTDD
[2019-07-15] MEDS: SODIUM CHLORIDE 0.9% INJ SCH (16:40)
[2019-07-15] MEDS: FOLIC ACID 5 MG in NS 50 ML IV SCH (22:03)
[2019-07-15] MEDS: XALATAN 0.005% OPH SOLN LEFT EYE SCH (22:04)
[2019-07-16] MEDS: HUMALOG SUBQ SCH ×6 (01:51→20:34)
[2019-07-16] MEDS: ALBUTEROL NEB INH SCH ×4 (03:30→21:15)
[2019-07-16] MEDS: LEVOPHED 8 MG in D5 1/2 NS 250 ML IV SCH (04:25)
--- NOTE | 2019-07-16 04:36 | PULMONOLOGY PROGRESS NOTE ---
DATE: 07/15/2019 SUBJECTIVE: The patient remains on mechanical ventilation. Maximum temperature in the last 24 hours 100.0 degrees.. OBJECTIVE: Vital Signs: Blood pressure 109/44, heart rate 84, respiratory rate 15, oxygen saturation 97%. She remains on Levophed for hypotension. HEENT: Pupils are equal. Oropharynx appears clear, but she does have some blood tinged in her mouth. NECK: Supple.Chest: Reveals coarse rhonchi bilaterally. Cardiac: S1, S2. Abdomen: Soft. Extremities: Without edema. LABORATORY DATA: White blood count 9.5, hemoglobin 9.2, platelet count 42,000. Arterial blood gas reveals a pH of 7.16, pCO2 of 42, PO2 of 265, with a lactate of 5.2. IMAGING: Chest x-ray reveals left basilar pneumonia. MICROBIOLOGY: Reveals no new data. IMPRESSION: A 78-year-old with: 1. Acute hypoxemic respiratory failure. 2. Ongoing sepsis/shock likely related to necrosis/pseudomembrane formation in the esophagus. 3. Global encephalopathy. 4. Bilateral pneumonia. 5. Diabetes mellitus. 6. Acute on chronic renal failure. PLAN: 1. Continue mechanical ventilation. 2. Additional bicarbonate today. 3. Continue antibiotics per Infectious Disease. 4. Continue renal management per Nephrology. 5. Prognosis is guarded. I frankly discussed the critical nature of the illness with a family member at the bedside. Time spent in critical care management: 35 minutes cc: MD Ming Castro Jr, MD MTDD
[2019-07-16 05:01] LABS: BLOOD TYPE ARTERIAL; PCO2(98.6) 32 mmHg (35-45); PO2(98.6) 147 mmHg (60-100); SAMPLE BLOOD
[2019-07-16 05:02] LABS: MODALITY VENTILATOR; SRATE 15 BPM; TVOL 550 mL
[2019-07-16 05:03] LABS: ALLEN TEST YES
[2019-07-16 05:04] LABS: HCO3-(ACT) 13.2 mmoll (20.0-26.0); pH(98.6) 7.22 (7.35-7.45)
[2019-07-16] MEDS: SODIUM CHLORIDE 0.9% INJ SCH (05:51)
[2019-07-16] MEDS: PROTONIX IV SCH ×2 (05:51→16:46)
[2019-07-16 06:22] LABS: ALB/GLOB RATIO 1.2; ALBUMIN 3.2 g/dL (3.5-5.0); CALCIUM 8.6 mg/dL (8.8-10.2); CREATININE 2.5 mg/dL (0.5-0.9); HEMATOCRIT 27.1 % (37.0-47.0); HEMOGLOBIN 8.4 g/dL (12.0-16.0); MCH 29.8 PG (27-31); MCV 96.1 FL (81-99); POTASSIUM 5.9 mmol/L (3.5-5.1); RBC 2.82 XMIL (4.2-5.4); RDW 15.6 % (11.5-14.5); TOTAL BILIRUBIN 0.58 mg/dL (0.20-1.00); TOTAL PROTEIN 5.9 g/dL (6.3-8.3); WBC 6.83 X1000 (4.8-10.8)
[2019-07-16 06:25] LABS: PLT 15 X1000 (130-400)
[2019-07-16] MEDS ORDERED: NS 2,000 ML MISC PRN (06:35)
--- NOTE | 2019-07-16 07:07 | Diag Imaging Result Doc PS360 ---
EXAM: CHEST-PORTABLE 07/16/2019 HISTORY: respiratory failure TECHNIQUE: AP portable upright at 0458 COMMENT: There is an endotracheal tube with its tip at thoracic inlet, a PICC line on the left with its tip just above the right atrium. There is retrocardiac opacity in the left lower lobe and there is likely a pleural effusion on the left. The right lung is unchanged in appearance compared to 07/15/2019 and there may be some degree of atelectasis or pneumonia in the right lower lobe. Overall the appearance the chest has not changed significantly. IMPRESSION: Atelectasis versus pneumonia particularly in the left lower lobe. Left pleural effusion. Electronically signed by Hever Matthews 07/16/2019 7:04 AM
--- NOTE | 2019-07-16 08:26 | GASTROENTEROLOGY PROGRESS NOTE ---
DATE: 07/13/2019 SUBJECTIVE: Patient is resting in bed, on ventilator, sedated, family at the bedside, OBJECTIVE: Vital signs: Temperature 97.3 degree, Pulse 62, Respiration 15, BP 126/51, O2 99% on mechanical ventilator, The patient's weight is 204 pounds, BMI is 32.6 kg/m2. General: Patient is sedated, on a ventilator, unable to assess. HEENT: Pale conjunctivae. Sclerae icterus. Neck is supple. Lungs: Coarse wheezing heard in the anterior mandujano. Cardiovascular: Regular rate and rhythm. Abdomen is soft, obese. Hypoactive bowel sounds heard in all 4 quadrants. Extremities: No clubbing no cyanosis. Generalized edema noted in the lower extremities. Neurologic: Unable to assess the patient. LABORATORY DATA: WBCs 9.50, RBC 3.24, hemoglobin 9.2, hematocrit 30.2, platelet count is 42,000. Sodium 143, potassium 4.8, chloride 105, carbon dioxide 17, anion gap 21, BUN 43, creatinine 1.6, glucose 148, calcium 8.7, total bilirubin is 0.64, AST 20, ALT 16, alkaline phos 68. IMAGING: Chest x-ray showed no change from the prior. IMPRESSION: 1. Upper gastrointestinal bleed. 2. Esophageal necrosis. 3. Duodenal ulcer. 4. Anemia. 5. Acute hypoxic respiratory failure. 6. Malnutrition. 7. Constipation. 8. Encephalopathy. 9. Aspiration pneumonia. 10. Acute on chronic kidney disease stage III, on dialysis. PLAN: The patient is currently n.p.o. and on a mechanical ventilator. Her hemoglobin is 9.2 and hematocrit is 27.5. The patient has so far received 4 units of packed red blood cells and 1 unit of platelets. We will continue with supportive care and transfuse packed red blood cells if her hemoglobin drops below 7. We will continue to follow the plan of care per PCP. This plan was discussed with Dr. Sims. Please call us for any further questions or concerns. Dictated by ADELA Hurt for Kenneth Sims MD cc: MD Ming Carney Jr, MD MTDD
[2019-07-16] MEDS: MIRALAX NG SCH ×2 (09:53→20:35)
[2019-07-16] MEDS: DULCOLAX PR SCH ×2 (09:53→20:36)
[2019-07-16] MEDS: ROCALTROL PO SCH (09:54)
[2019-07-16] MEDS: CLINIMIX E 4.25%-5% SOLUTION 1,000 ML IV SCH ×2 (09:57→23:50)
--- NOTE | 2019-07-16 11:39 | PROGRESS NOTE ---
DATE: 07/16/2019 SUBJECTIVE: The patient is still not responsive. Has been off of the propofol but still on the ventilator. She has not been on any sedation apparently for about 3 days. One family member was by the bedside. OBJECTIVE: Vital Signs: Blood pressure 137/50 earlier but she is on pressor agents. Respirations 15, pulse 64, temperature 96.9 degrees Fahrenheit. HEENT: She is normocephalic. Unresponsive. Lungs: Have few rales or rhonchi anteriorly. Heart: Regular rate and rhythm without murmurs, gallops or friction rubs. Abdomen: Soft. Active bowel sounds. No organomegaly or tenderness. Neurological: Hard to evaluate as she is unresponsive. LABORATORY DATA: Shows a white count 6830, hemoglobin 8.4, platelet count has dropped to 15,000. Blood gas shows a pH of 7.22, pCO2 of 32, PO2 of 147. Creatinine is 2.5, BUN 62. ASSESSMENT: 1. Unresponsive. 2. Respiratory failure. 3. Renal failure. 4. Thrombocytopenia. 5. Anemia. 6. Necrotic esophagus. 7. Acidosis. PLAN: Did have a talk with family member that there has not been much response from her neurologically. She is on dialysis. Might want to consider some time in the future to do another scan of her head and an EEG. We will pose the question to Dr. Almazan, Neurology. Prognosis poor. cc: Ming Palmer Jr, MD
[2019-07-16] MEDS: GAMUNEX-C 10% IV SCH (12:27)
[2019-07-16] MEDS ORDERED: NS 500 ML IV ONE (13:15)
--- NOTE | 2019-07-16 14:41 | INFECTIOUS DISEASE PROGRESS NO ---
DATE: 07/16/2019 PRESENT ILLNESS: The patient has bilateral pulmonary venous congestion and atelectasis and possible pneumonia. She also has a very low IgG of 339. MEDICATIONS: The patient is getting cefepime and vancomycin after dialysis. She has been on antibiotics now for 4 days. Yesterday she got a dose of IVIG and she will get another one today, which should bring her IgG level up to normal. For now, I plan to continue the current antibiotics, namely cefepime and vancomycin. PHYSICAL EXAMINATION: Vital Signs: Temperature is 98 degrees, pulse 64, respirations 15, blood pressure 137/50. General: This is an obese, elderly female. She is intubated and sedated. Head/eyes/ears/nose/throat: She has an orotracheal tube in place. Neck: No stiffness. Lungs: Bilateral rhonchi. Cardiovascular: Heart rate is regular. Abdomen: Soft and nontender. The patient has in the right groin area a dialysis catheter. The site is not purulent or draining. Extremities: The patient has a PICC in her left arm. That site too is not purulent or draining. Neurologic: The patient is sedated. She did not respond to verbal stimuli and there is no tremor. LAB AND X-RAY: Chest x-ray shows bilateral pneumonia/atelectasis. A procalcitonin level is pending. IgG was 339, which is very low, and the IgA is 108, which is normal. Chest x-ray shows bilateral pneumonia/atelectasis. CBC shows a white count of 6830, hemoglobin 8.4, and platelet count 15,000. The patient's creatinine today is 2.5 with a GFR of 23. ASSESSMENT AND PLAN: The patient has pneumonia. She also has an immunoglobulin deficiency. My plan now is to continue with the current antibiotics and the patient will get another infusion of IVIG today, which should bring her IgG level back to the normal range. COMORBIDITIES: Chronic kidney disease, diabetes mellitus, diverticulosis, hypertension, and hyperlipidemia. cc: MD Ming Cantrell Jr, MD
[2019-07-16 15:01] LABS: INR 1.19; PROTIME 15.3 Seconds (11.0-16.0)
[2019-07-16 15:02] LABS: PTT 31.4 Seconds (22.3-41.8)
--- NOTE | 2019-07-16 16:17 | PROVIDER PROGRESS NOTE ---
Progress Note Subjective: pt lying in bed sedated and on vent. Objective: vitals., pulse 66, respirations 15, blood pressure 89/36, 02 sat 97% on mechanical ventilation. General: Elderly -[place] female lying in bed on mechanical ventilator and is receiving sedation. HEENT: normocephalic, Corneal arcus. Trachea midline, mucous membranes dry. Skin: warm and dry Neck: supple, 8 cm JVD Cardiovascular: Distant, s1s2 no murmur or gallop irregular rhythm. Respiratory: Coarse wheezes and crackles with mechanical ventilation noises anteriorly Abdomen: Obese, soft, nontender, non distended, bowel sounds hypoactive : non inspected, Garcia in place Extremities: Trace edema to lower and upper bilateral extremities Neurological: sedated. Labs: WBC 6.83, hemoglobin 8.4, hematocrit 27.1, platelet count 15, sodium 135, potassium 5.9, chloride 97, carbon dioxide 12, BUN 62, creatinine 2.5. Acetone level negative. Intake 2414, output 30. Impression: Acute on chronic kidney disease stage 3. Creatinine improving with SLED, we will run her again today. Metabolic acidosis. On bicarb drip. Thrombocytopenia. Likely related to sepsis. We will check a GISELA antibody Anemia. Low but stable. Nutrition. Receiving clinimix. Medication review. No changes today.
--- NOTE | 2019-07-16 16:23 | GASTROENTEROLOGY PROGRESS NOTE ---
DATE: 07/16/2019 SUBJECTIVE: Ms. Murillo is a 78-year-old female resting in bed, on ventilator, sedated. Family at the bedside. The patient is receiving dialysis at the bedside. OBJECTIVE: Vital signs: Temperature 96.9 degrees, pulse 61, respirations 15, blood pressure 104/38, oxygen saturation 96% on mechanical ventilator. Patient's weight is 184 pounds, BMI is 32.7 kg/m2. General: Patient is sedated, unable to assess. HEENT: Pale conjunctivae. Scleral icterus. Neck: Supple. Lungs: Rhonchi is heard in the anterior mandujano. Cardiovascular: Regular rate and rhythm. Abdomen: Soft, obese. Active bowel sounds heard in all 4 quadrants. Neurologic: Unable to assess patient. LABS: WBC is 6.83, RBC 2.82, hemoglobin 8.4, hematocrit 27.1, platelet count is 15,000. Sodium 135, potassium 5.9, chloride 97, carbon dioxide 12, anion gap 26, BUN 62, creatinine 2.5, glucose 131, calcium 8.6, total bilirubin 0.58, AST 30, ALT 25, alkaline phosphatase 69, albumin is 3.2. Chest x-ray showed atelectasis versus pneumonia, particularly in the left lower lobe, left pleural effusion. IMPRESSION: 1. Upper gastrointestinal bleed. 2. Esophageal necroses. 3. Duodenal ulcers. 4. Anemia. 5. Acute hypoxic respiratory failure. 6. Malnutrition. 7. Constipation. 8. Encephalopathy. 9. Aspiration pneumonia. 10. Acute on chronic kidney disease stage 3, on dialysis. PLAN: The patient is currently n.p.o. She is on a mechanical ventilator. Her hemoglobin is 8.4 and hematocrit is 27.1. The patient's platelet counts are 15,000. It has been trending downward drastically. We recommend PCP to do a hematologic consult for her low platelet count. We will continue with supportive care, monitor her H & H, transfuse packed red blood cells if her hemoglobin drops below 7 with the goal between 7 and 8. We will continue to monitor patient's CBC, BMP and follow the plan of care per PCP. This plan was discussed with . Please call us for any further questions or concerns. Dictated by ADELA Hurt for Dipesh Aguilar MD cc: Ming Palmer Jr, MD Physician Attestation I have seen and examined the patient. I have discussed and reviewed the the note by Megan CHAPMAN and agree with findings and plan as documented. In brief, Ms. Neetu Murillo is a 78 year old woman initially admitted with AMS from presumed UTI who course c/b hypoxic respiratory failure, CONCETTA on HD, and GI bleed found to have diffuse esophageal necrosis and duodenal ulceration c/f ischemic injury. She is currently in shock on pressors likely from sepsis and is on broad spectrum antibiotics. Her platelets are low. No recent blood transfusions required. Our main concern is her mental status. She has been off pressors for 3 days and remains unresponsive. I discussed her overall poor prognosis with family at bedside. Recommend neurology reevaluate and palliative care discussions. Also, recommend hematology consultation for thrombocytopenia evaluation. Continue supportive care with IV PPI BID, parental nutrition, and transfusions as needed to maintain hgb >7 and platelets >50K. Will follow with you. MARTY
--- NOTE | 2019-07-16 16:44 | GASTROENTEROLOGY PROGRESS NOTE ---
DATE: 07/14/2019 SUBJECTIVE: Patient is resting in bed, on ventilator, sedated, and family at the bedside. OBJECTIVE: Vital signs: Temperature 98.3 degrees, pulse 71, respirations 19, blood pressure 107/42, oxygen saturation 97% on ventilator. Her weight is 184 pounds, BMI is 32.7 kg/m2. General: The patient is sedated, on ventilator, unable to assess. HEENT: Pale conjunctivae. Scleral icterus. Neck: Supple. Lungs: Coarse wheezing heard in the anterior mandujano. Cardiovascular: Regular rate and rhythm. Abdomen: Soft, obese. Hypoactive bowel sounds heard in all 4 quadrants. Extremities: No clubbing. No cyanosis. Generalized edema noted in the lower extremities. Neurologic: Unable to assess the patient. LAB: WBC is 7.62, RBC 3.21, hemoglobin 9.2, hematocrit 27.5, platelet count is 52,000. Sodium is 141, potassium is 5.4, chloride 103, carbon dioxide 16, anion gap 22, BUN 38, creatinine 1.5, glucose 173, calcium 9.2, total bilirubin 0.66, AST 16, ALT 17, alkaline phosphatase is 70. Chest x-ray showed improvement in the faint central infiltrates/pulmonary edema. IMPRESSIONS: 1. Upper gastrointestinal bleed. 2. Esophageal necrosis. 3. Duodenal ulcer. 4. Anemia. 5. Aspiration pneumonia. 6. Acute hypoxic respiratory failure. 7. Malnutrition. 8. Constipation. 9. Encephalopathy. 10. Acute and chronic kidney disease stage 3, on dialysis. PLAN: The patient is currently n.p.o. and on a mechanical ventilator. We will continue with the supportive care and if the patient's hemoglobin drops below 7, we will transfuse packed red blood cells with the goal of Hemoglobin between 7 and 8. We will continue to follow the plan of care per PCP, Adjunct Teacher, Business Process Lead and Infectious Disease team. This plan was discussed with Dr. Sims. Please call us for any further questions or concerns. Dictated by ADELA Hurt for Kenneth Sims MD cc: MD Ming Carney Jr, MD MTDD
[2019-07-16] MEDS: SODIUM BICARBONATE 8.4% IV PUSH SCH ×2 (16:47→20:28)
[2019-07-16] MEDS ORDERED: MAXIPIME 1 GM in NS 50 ML IV ONE (17:00)
[2019-07-16] MEDS ORDERED: VANCOMYCIN 1 GM/NS 1 GM/250 ML IVPB IV ONE (17:30)
--- NOTE | 2019-07-16 18:00 | HEMO/ONC CONSULTATION ---
DATE: 07/16/2019 REASON FOR CONSULTATION: Thrombocytopenia. HISTORY OF PRESENT ILLNESS: Ms. Murillo is a 78-year-old female. The patient was brought to the hospital by family with reports of being extremely weak, unable to walk over the last several days. The patient had prior admissions to the hospital in May for acute gastritis and volume depletion and again on 06/27 for generalized weakness and fatigue and a UTI. Per this admission, the family states she is unable to take her UTI medication. She has had incontinence, a decrease in appetite. She is being admitted for failure of outpatient treatment of UTI. The patient has also had a change in mental status and was noted to have blood in her mouth and in her nose. Her oxygen requirements increased so the patient did become more agitated and not following commands. On 07/05 the patient was found in her room slumped to the right side with blood coming out of her mouth and nose, with a large amount of blood lying on the floor and patient; she was coughing up blood. CAT call was called and respiratory suctioned the patient and started her on a non-rebreather. The patient was then placed on BiPAP. She continued to be increasingly confused. At this point, the patient was transferred to the [facility] from [place] for critical care. On 07/08 the patient began to have an increase of labored breathing and she was transferred to the ICU. The patient was tachypneic, with increased work of breathing. On 07/09 the patient was seen by Dr. Ware. She continued to have a decline in respiratory status, increased work of breathing. Her O2 saturations dropped to 87%. The patient was intubated. Dr. Aguilar has also done an EGD where she was found to have necrotic esophagus. The patient is currently in the ICU and intubated. PAST MEDICAL HISTORY: Diabetes mellitus, diverticulosis, chronic trazodone use, dyslipidemia, chronic kidney disease stage 2, hypertension. SOCIAL HISTORY: No smoking or alcohol. REVIEW OF SYSTEMS: Pertinent positives noted in the HPI. VITAL SIGNS: Temperature 97.8 degrees, pulse rate 73, respiratory rate 15, blood pressure 155/46, O2 saturation 96% on mechanical ventilation. PHYSICAL EXAMINATION: General: Elderly female, chronically ill-appearing, on mechanical ventilator, sedated. HEENT: Mucous membranes are dry. Sclerae anicteric. Cardiovascular: Distant S1 and S2. No irregularity noted. Respiratory: Coarse crackles noted throughout lungs. Mechanical ventilation noises. Abdomen: Protuberant, soft, nontender. : Garcia catheter in place. Extremities: Trace edema to the lower and upper bilateral extremities. LABORATORY: WBC 6.83, hemoglobin 8.4, hematocrit 27.1, platelet count 15,000. PT 15.3, INR 1.19, PTT 31.4, fibrinogen 668. D-dimer 6.87. Potassium 5.9, sodium 135, creatinine 2.55. Procalcitonin 3.8. RADIOLOGY: Today's chest x-ray shows atelectasis versus pneumonia, particularly in the left lower lobe. Left pleural effusion. ASSESSMENT AND PLAN: 1. Profound thrombocytopenia. We will add a DIC profile as well as B12 and folate for what it is worth. We will evaluate labs. We agree with 1 unit of platelets today as well as 1 unit FFP. Her thrombocytopenia is multifactorial. Review of her medications do not show anything suspect. This is most likely bone marrow suppression from her complicated comorbidities. We will continue to monitor closely. 2. Respiratory failure. The patient is being followed by pulmonology. She is mechanically ventilated. 3. Renal failure. Patient is on dialysis. Being followed per Dr. Burgos. Dictated by ADELA Owens for Calos Velazquez MD cc: MD Ming Corbett Jr, MD MTDD
[2019-07-16] MEDS: XALATAN 0.005% OPH SOLN LEFT EYE SCH ×2 (19:55→20:34)
[2019-07-16] MEDS: FOLIC ACID 5 MG in NS 50 ML IV SCH (19:55)
--- NOTE | 2019-07-16 20:40 | PULMONOLOGY PROGRESS NOTE ---
DATE: 07/16/2019 SUBJECTIVE: The patient remains poorly responsive. She remains on vasopressors. OBJECTIVE: Vital signs: Blood pressure 122/45, heart rate 77, respiratory rate 15, oxygen saturation 95%. HEENT: Pupils are equal. Oropharynx appears clear. Neck: Supple. Chest: Reveals coarse rhonchi bilaterally. Cardiac exam: Regular rate, normal S1, normal S2. Abdomen: Soft. Extremities: Reveal 1+ peripheral edema and are cool to the touch. LABORATORIES AND IMAGING: Chest x-ray reveals minimal infiltrate in the right base with atelectasis and pneumonia to the left base. Sodium 135, potassium 5.9, chloride 97, bicarbonate 12, BUN 62, creatinine 2.5. White blood count 6.83, hemoglobin 8.4, platelet count 15,000. IMPRESSION: A 78-year-old with: 1. Esophageal necrosis. 2. Septic shock. 3. Acute hypoxemic respiratory failure. 4. Global encephalopathy. 5. Bilateral pneumonia. 6. Diabetes mellitus. 7. Acute on chronic renal failure. 8. Thrombocytopenia. DISCUSSION: A 78-year-old that remains critically ill. Her necrotic esophagus is most likely driving the majority of her other issues. PLAN: 1. Continue mechanical ventilation. 2. Continue bicarbonate therapy. 3. Continue antibiotics per Infectious Disease. 4. Continue renal management per Nephrology. 5. Transfuse platelets later today. She is currently on hemodialysis, which will likely consume significant number of platelets. 6. Prognosis is guarded to poor. TIME SPENT IN CRITICAL CARE MANAGEMENT: 30+ minutes. cc: MD Ming Castro Jr, MD
[2019-07-17] MEDS: HUMALOG SUBQ SCH ×6 (01:00→20:17)
[2019-07-17] MEDS: SODIUM BICARBONATE 8.4% IV PUSH SCH (01:04)
[2019-07-17] MEDS: ALBUTEROL NEB INH SCH ×4 (03:19→21:24)
[2019-07-17 04:30] LABS: ALLEN TEST YES; BLOOD TYPE ARTERIAL; HCO3-(ACT) 21.8 mmoll (20.0-26.0); METHB 1.8 % (0.0-1.5); O2(CT) 11.3 mL/dL (15.0-23.0); O2HB 93.4 % (95.0-99.0); PCO2(98.6) 35 mmHg (35-45); PO2(98.6) 69 mmHg (60-100); SAMPLE BLOOD; SAO2 96.1 % (95.0-100.0); SRATE 15 BPM; THB 8.5 g/dL (11.5-17.4); TVOL 550 mL; pH(98.6) 7.38 (7.35-7.45)
[2019-07-17 04:34] LABS: MODALITY VENTILATOR
[2019-07-17] MEDS: PROTONIX IV SCH ×2 (04:58→16:02)
[2019-07-17] MEDS: SODIUM CHLORIDE 0.9% INJ SCH (04:58)
--- NOTE | 2019-07-17 05:38 | Diag Imaging Result Doc PS360 ---
EXAM: CHEST-PORTABLE HISTORY: respiratory failure TECHNIQUE: Single view COMPARISON: 07/16/2019 FINDINGS: No change in the endotracheal tube or left-sided PICC line. The infiltrates and atelectasis in the left lung base with a small effusion. The overall appearance is similar to the prior exam. IMPRESSION: Stable chest Electronically signed by Pranav Espino 07/17/2019 5:35 AM
[2019-07-17] MEDS: LEVOPHED 8 MG in D5 1/2 NS 250 ML IV SCH ×2 (05:43→16:02)
[2019-07-17 06:10] LABS: HEMOGLOBIN 8.5 g/dL (12.0-16.0); MCH 29.2 PG (27-31); MCHC 31.5 g/dL (33-37); MCV 92.8 FL (81-99); MPV 11.5 FL (7.4-10.4); RBC 2.91 XMIL (4.2-5.4); RDW 15.3 % (11.5-14.5); WBC 4.64 X1000 (4.8-10.8)
[2019-07-17 06:16] LABS: ALB/GLOB RATIO 1.6; ALBUMIN 3.3 g/dL (3.5-5.0); CALCIUM 8.4 mg/dL (8.8-10.2); CREATININE 1.3 mg/dL (0.5-0.9); POTASSIUM 4.4 mmol/L (3.5-5.1); TOTAL BILIRUBIN 0.85 mg/dL (0.20-1.00); TOTAL PROTEIN 5.4 g/dL (6.3-8.3)
[2019-07-17] MEDS ORDERED: NS 2,000 ML MISC PRN (06:29)
[2019-07-17] MEDS: DULCOLAX PR SCH (09:04)
[2019-07-17] MEDS: MIRALAX NG SCH (09:04)
[2019-07-17] MEDS: ROCALTROL PO SCH (09:05)
--- NOTE | 2019-07-17 11:52 | PROGRESS NOTE ---
DATE: 07/17/2019 SUBJECTIVE: The patient is still not responsive. OBJECTIVE: Vital Signs: Blood pressure 120/57, respirations 15, pulse 101, temp 97.3 degrees Fahrenheit. HEENT: She is normocephalic. Lungs: Have a few rales or rhonchi anteriorly. Heart: Regular rate and rhythm without murmurs, gallops, friction rubs. Abdomen: Soft. Active bowel sounds. No organomegaly or tenderness. Neurological: The patient is still unresponsive. IMAGING AND LABORATORY DATA: Blood gas shows pH 7.38, pCO2 of 35, PO2 of 69. Lactate has gone up to 8.80. BUN is 29, creatinine is down to 1.3. Platelet count is 46,000, which is slightly better. Chest x-ray shows infiltrates and atelectasis at the left lung base with small effusion. Not much change from previous x-ray. ASSESSMENT: 1. Upper gastrointestinal bleed. 2. Necrotic esophagus. 3. Peptic ulcer disease. 4. Acute respiratory arrest. 5. Kidney failure. 6. Not responsive with coma. 7. Thrombocytopenia. 8. Anemia. 9. Acidosis. 10. Elevated lactate. PLAN: Continue to support. I would like to get an EEG. Family members were in the room, and I talked with them this morning as well. cc: Ming Palmer Jr, MD
[2019-07-17] MEDS: CLINIMIX E 4.25%-5% SOLUTION 1,000 ML IV SCH (12:43)
--- NOTE | 2019-07-17 13:12 | HEMO/ONC PROGRESS NOTE ---
DATE: 07/17/2019 SUBJECTIVE: The patient remains unresponsive in her bed. She remains in the ICU on a mechanical ventilator. She does not respond to any stimuli. It is noted that she has a washcloth underneath her chin with red blood that appears to be drooling from her mouth. Family is at bedside. OBJECTIVE: Vital Signs: Temperature 97.3 degrees, pulse rate 112, respiratory rate 15, blood pressure 101/50, O2 saturation 94% on mechanical ventilation, 0/10 pain. HEENT: Sclerae is anicteric. Oral mucosa is dry with ET tube in place. Respiratory: Bilateral coarse rhonchi diminished at bases. Cardiovascular: Tachycardic rate and rhythm. No murmurs noted. Gastrointestinal: Abdomen soft. Bowel sounds are present. No hepatosplenomegaly. LABORATORY DATA: WBCs 4.64, hemoglobin 8.5, hematocrit 27, platelet count 46,000. Sodium 144, potassium 4.4, creatinine 1.3, vitamin B 12 612 and folate 19.8. RADIOLOGY: Chest x-ray from this morning shows no acute changes. Stable chest. ASSESSMENT AND PLAN: 1. Profound thrombocytopenia. DIC profile is negative. Platelet count improved with transfusion nicely. Transfuse for platelet count of less than 20,000 or if she is bleeding. The cause is most likely multifactorial and most likely related to bone marrow suppression from her complicated comorbidities. 2. Respiratory therapy. The patient is being followed by Pulmonology. She is mechanically ventilated. Continue medical management and Pulmonology. 3. Renal failure. The patient is on dialysis. She is being followed by Dr. Burgos. Dictated by ADELA Owens for Calos Velazquez MD cc: MD Ming Corbett Jr, MD MTDD
--- NOTE | 2019-07-17 18:11 | GASTROENTEROLOGY PROGRESS NOTE ---
DATE: 07/17/2019 SUBJECTIVE: Ms. Murillo is a 78-year-old, -[place] female, resting in bed, on ventilator, sedated. Family at the bedside. Patient is also receiving dialysis at the bedside. OBJECTIVE: vital signs: Temperature 97.3 degrees, pulse 104, respirations 15, blood pressure 120/52, oxygen saturation 98% on mechanical ventilator. The patient's weight is 186 pounds. BMI is 32.9 kg/m2. General: Patient is sedated. Unable to assess. HEENT: Pale conjunctivae. sclerae icterus. Neck: Supple. Lungs: Rhonchi and coarse wheezing heard in the anterior mandujano. Cardiovascular: The patient is tachycardic. Abdomen: Soft, obese. Active bowel sounds heard in all 4 quadrants. Neurologic: Unable to assess the patient. LABORATORY AND DIAGNOSTIC DATA: WBC is 4.64, RBC 2.91, hemoglobin 8.5, hematocrit 27.0, platelet count 46,000. Sodium 144, potassium 4.4, chloride 100, carbon dioxide 18, anion gap 26, BUN 29, creatinine 1.3, glucose 130, calcium 8.4. Total bilirubin 0.85, AST 86, ALT 27, alkaline phosphatase 88, albumin 3.3. Chest x-ray has shown stable chest. IMPRESSION: 1. Upper gastrointestinal bleed. 2. Esophageal necrosis. 3. Duodenal ulcers. 4. Anemia. 5. Acute hypoxic respiratory failure. 6. Malnutrition. 7. Constipation. 8. Encephalopathy. 9. Aspiration pneumonia. 10. Acute on chronic kidney disease stage 3, on dialysis. PLAN: Ms. Murillo 78 year old female who is on a mechanical ventilator, sedated and unresponsive. Patient is currently NPO. She is receiving Clinimix for her nutrition and folic acid IV. We will continue to provide supportive care and follow the current plan of care. The patient is on GI prophylaxis Protonix 40 mg IV twice a day. Her hemoglobin and hematocrit today was 8.5 and 27.0. Her platelet count has been 46,000, it has been trending upwards. The patient has received 1 unit of fresh frozen plasma and 1 unit of platelets per oncologist. We will continue to monitor the patient and follow the plan of care per PCP, air hammer stripper, oncologist, and Infectious Disease team. This plan was discussed with Dr. Aguilar. Please call us for any further questions or concerns. Dictated by ADELA Hurt for Dipesh Aguilar MD cc: Ming Palmer Jr, MD Physician Attestation I have seen and examined the patient. I have discussed and reviewed the the note by Megan CHAPMAN and agree with findings and plan as documented. In brief, Ms. Neetu Murillo is a 78 year old woman initially admitted with AMS from presumed UTI whose course has c/b hypoxic respiratory failure, CONCETTA on HD, and GI bleed found to have diffuse esophageal necrosis and duodenal ulceration c/f ischemic injury. She is currently in shock on pressors with lactic acidosis. She is unresponsive after 5 days off sedation despite dialysis, broad spectrum antibiotics, and supportive care. Neurology following; neuro exam poor. Repeat EEG today shows "no clinical or electroencephalogram evidence of brain activity" . Recommend palliative care and GOC discussion. MTDD
[2019-07-17] MEDS: XALATAN 0.005% OPH SOLN LEFT EYE SCH ×2 (19:50→22:23)
[2019-07-17] MEDS: FOLIC ACID 5 MG in NS 50 ML IV SCH (19:50)
--- NOTE | 2019-07-17 19:57 | NEPHROLOGY PROGRESS NOTE ---
DATE: 07/17/2019 SUBJECTIVE: Remains unresponsive. OBJECTIVE: Vital Signs: Blood pressure 112/46, heart rate 81, respirations 15, afebrile. General: Again, unresponsive, no acute distress. Skin: Warm and dry. Neck: Neck veins are not appreciated. Heart: Regular. Lungs: Equal. No crackles. Abdomen: Soft. Bowel sounds are present. Nontender. Extremities: Minimal edema. No clubbing or cyanosis. IMPRESSION: Acute kidney injury. No recovery. Electrolytes/acid base in target. Volume status appears euvolemic. Sustained low efficiency dialysis (SLED) today using a 4K bath and 32 bicarbonate. Goal of 2 L ultrafiltration. Our goal at this point is to maintain even volume status unless the team disagrees. Unfortunately, despite optimizing her volume status and her chemistries, there has been no clinical improvement. cc: MD Ming Gonzalez Jr, MD
[2019-07-17] MEDS ORDERED: MAXIPIME 1 GM in NS 50 ML IV ONE (20:00)
[2019-07-17] MEDS ORDERED: VANCOMYCIN 1 GM/NS 1 GM/250 ML IVPB IV ONE (21:00)
--- NOTE | 2019-07-17 21:14 | PROGRESS NOTE ---
DATE: 07/17/2019 SUBJECTIVE: Ms. Murillo has not had significant sedative medication administered in several days. She has not had significant change apparent clinically. The EEG shows marked voltage suppression and no definite electrocortical activity identified. On exam, I do not see lateral eye movement with head turning. I do not see left pupil reaction. Right pupil is sclerotic. There is no corneal reflex bilaterally. Limbs are flaccid. There was no response to noxious stimulation. She continues intubated and mechanically ventilated. IMPRESSION: Global encephalopathy, no clinical or electroencephalogram evidence of brain activity. The etiology for her current state is not clear to me but prognosis, from a central nervous system standpoint, is extremely poor. cc: MD Ming Ritter III, Jr, MD MTDD
--- NOTE | 2019-07-17 21:34 | INFECTIOUS DISEASE PROGRESS NO ---
DATE: 07/17/2019 PRESENT ILLNESS: The patient has a left lower lobe pneumonia with a small effusion. 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 MEDICATIONS: The patient is in day 3 of cefepime and day 5 of vancomycin. Both antibiotics are given after dialysis. PHYSICAL EXAMINATION: Vital Signs: Temperature is 98 degrees, pulse is 104, respirations 15, blood pressure 120/52. General: This is an obese, elderly female. She is intubated, but she is not getting any sedation, but she remains obtunded. Head/eyes/ears/nose/throat: Patient has an orotracheal tube in place. Neck: No stiffness. Lungs: Bilateral rhonchi. Cardiovascular: Heart rate is regular. Abdomen: Soft and does not appear to be tender. Extremities: In the right groin the patient has a dialysis catheter. The site is not purulent. In the left arm, the patient has a PICC and that site also is not purulent or draining. Neurologic: As mentioned above, the patient is obtunded. She is not getting sedation. The patient does not have any tremor and she does not respond to verbal stimuli. LAB AND X-RAY: Chest x-ray shows left lower lobe infiltrate and a small effusion. Procalcitonin level is 3.8. Creatinine is 1.3. GFR is 48. The patient's CBC shows a white count of 4640, hemoglobin 8.5, and platelet count 46,000. Blood gases show a pH of 7.38, a PO2 of 69 and a pCO2 of 35. ASSESSMENT AND PLAN: Patient has pneumonia with pleural effusion. She also has an immunoglobulin deficiency. I plan to continue the current antibiotics and the patient has had 2 separate infusions of IVIG and she will not need any more for a while. COMORBIDITIES: Chronic kidney disease, diabetes mellitus, diverticulosis, hypertension, and hyperlipidemia. cc: MD Ming Cantrell Jr, MD
[2019-07-18] MEDS: HUMALOG SUBQ SCH ×6 (01:11→20:23)
[2019-07-18] MEDS: CLINIMIX E 4.25%-5% SOLUTION 1,000 ML IV SCH ×3 (01:45→14:48)
[2019-07-18] MEDS: ALBUTEROL NEB INH SCH ×4 (03:20→22:32)
--- NOTE | 2019-07-18 04:21 | EEG REPORT ---
DATE: 07/17/2019 EEG NUMBER: [id number]. COMMENT: This is a digitally recorded EEG done portably in the ICU on a 78-year-old patient with persistent unresponsiveness. FINDINGS: Over 25 minutes of recording, there was minimal needle deflection, nothing that could be identified as definite cortical activity. EKG and room artifacts were present. There was no change with photic stimulation. There was no variation to correlate with spontaneous drowsing or sleep. No epileptiform discharge was identified. INTERPRETATION: Abnormal EEG because of marked slowing and voltage suppression. CORRELATION: This is indicative of markedly severe generalized encephalopathy. cc: MD Ming Ritter III, Jr, MD
[2019-07-18 04:49] LABS: ALLEN TEST YES; BE -11.5 mmoll (-3.0-3.0); BLOOD TYPE ARTERIAL; O2(CT) 12.3 mL/dL (15.0-23.0); O2HB 96.9 % (95.0-99.0); PCO2(98.6) 29 mmHg (35-45); PO2(98.6) 111 mmHg (60-100); SAMPLE BLOOD; SAO2 99.3 % (95.0-100.0); SRATE 15 BPM; THB 8.9 g/dL (11.5-17.4); TVOL 550 mL; pH(98.6) 7.29 (7.35-7.45)
[2019-07-18 04:50] LABS: MODALITY VENTILATOR
[2019-07-18 05:10] LABS: HEMATOCRIT 27.2 % (37.0-47.0); HEMOGLOBIN 8.3 g/dL (12.0-16.0); MCHC 30.5 g/dL (33-37); MCV 91.9 FL (81-99); MPV 12.3 FL (7.4-10.4); RBC 2.96 XMIL (4.2-5.4); RDW 15.4 % (11.5-14.5); WBC 4.98 X1000 (4.8-10.8)
[2019-07-18] MEDS: LEVOPHED 8 MG in D5 1/2 NS 250 ML IV SCH ×2 (05:38→18:50)
[2019-07-18] MEDS: PROTONIX IV SCH ×2 (05:55→16:30)
[2019-07-18 06:03] LABS: ALBUMIN 3.1 g/dL (3.5-5.0); CALCIUM 8.4 mg/dL (8.8-10.2); CREATININE 1.2 mg/dL (0.5-0.9); TOTAL BILIRUBIN 0.97 mg/dL (0.20-1.00); TOTAL PROTEIN 6.1 g/dL (6.3-8.3)
[2019-07-18] MEDS ORDERED: NS 2,000 ML MISC PRN (06:26)
--- NOTE | 2019-07-18 07:10 | Diag Imaging Result Doc PS360 ---
EXAM: CHEST-PORTABLE 07/18/2019 HISTORY: respiratory failure TECHNIQUE: AP portable upright at 0500 COMMENT: There is dense alveolar opacification of the left lower lobe. This was also present on 07/17/2019. There has been some improvement in the right lower lobe opacity. The endotracheal tube remains slightly below the thoracic inlet. The left PICC line is again noted with its tip in the superior vena cava. IMPRESSION: Improved pneumonia plus minus pulmonary edema. Electronically signed by Hever Matthews 07/18/2019 7:08 AM
--- NOTE | 2019-07-18 08:21 | PULMONOLOGY PROGRESS NOTE ---
DATE: 07/17/2019 SUBJECTIVE: The patient does not respond to painful stimuli. She has had decreased respiratory effort. OBJECTIVE: Vital Signs: The patient has been afebrile for the last 24 hours. Blood pressure 138/56, heart rate 107, respiratory rate 15, and oxygen saturation 98%. HEENT: Pupils are equal and reactive. Oropharynx appears clear. Neck: Neck is supple. Lungs: Chest reveals coarse rhonchi bilaterally. Cardiac: S1 and S2 with increased rate. Abdomen: Soft. Extremities: Revealed 1+ peripheral edema. LABORATORIES: White blood count 4.64, hemoglobin 8.5, platelet count 46,000, sodium 144, potassium 4.4, chloride 100, bicarbonate 18, BUN 29, creatinine 1.3, and glucose 130. Arterial blood gas reveals a pH of 7.38, pCO2 of 35, PO2 of 69 with a lactate of 8.8. Chest x-ray reveals small effusion with atelectasis left base but no major changes. IMPRESSION: A 78-year-old with: 1. Esophageal necrosis. 2. Septic shock with ongoing lactic acidosis. 3. Acute hypoxemic respiratory failure. 4. Pneumonia. 5. Global encephalopathy. Neurology note has been reviewed and discussed with Dr. Almazan. Neurologic prognosis appears extremely poor. 6. Diabetes mellitus. 7. Acute on chronic renal failure. 8. Severe thrombocytopenia. DISCUSSION: A 78-year-old with problems outlined above. The patient has had progressive lactic acidosis which suggests a very poor prognosis. Her mental status is very poor. By description, she has very little cortical activity. PLAN: 1. CT scan of the brain tomorrow to rule out diffuse edema which should also signify a poor prognosis. 2. CT scan of the thorax tomorrow to evaluate for possible mediastinitis given known severe esophageal necrosis. 3. Continue antibiotics. 4. Renal management per Nephrology. 5. Prognosis appears to be extremely poor. Each day she appears to get worse and prognosis for survival is very low. TIME SPENT: Critical care management 30+ minutes. cc: MD Ming Castro Jr, MD
[2019-07-18] MEDS: ROCALTROL PO SCH (09:39)
--- NOTE | 2019-07-18 10:27 | PROVIDER PROGRESS NOTE ---
Progress Note Subjective: pt lying in bed sedated and on vent. Objective: vitals. Temp. 98.8, pulse 80, respirations 17, blood pressure 128/50, 02 sat 98% on mechanical ventilation. General: Elderly -[place] Citizen female lying in bed on mechanical ventilator and is receiving sedation. HEENT: normocephalic, Corneal arcus. Trachea midline, mucous membranes dry. Skin: warm and dry Neck: supple, No JVD Cardiovascular: Distant, s1s2 no murmur or gallop. Respiratory: lungs clear Abdomen: Obese, soft, nontender, non distended, bowel sounds hypoactive : non inspected, Garcia in place Extremities: Trace edema to lower and upper bilateral extremities Neurological: sedated. Labs: Wbc 4.98, hemoglobin 8.3, hematocrit 27.2, platelet count 37, sodium 135, potassium 6.0, chloride 100, carbon dioxide 14, BUN 25, creatinine 1.2. Intake 1646, output 3700. Impression: Acute on chronic kidney disease stage 3. Creatinine improving with SLED, repeat today. Metabolic acidosis. Stable pH but rising lactate. Thrombocytopenia. Likely sepsis. Awaiting GISELA antigen results. Anemia. Low but stable. Nutrition. Receiving clinimix. Medication review.
--- NOTE | 2019-07-18 12:10 | PROGRESS NOTE ---
DATE: 07/18/2019 SUBJECTIVE: The patient is unresponsive, has been off of sedation for several days now and is still not responsive. EEG shows markedly severe generalized encephalopathy. Over 25 minutes of recording, there was a minimal needle deflection, nothing that could be identified as definite cortical activity. There was no change with photic stimulation. There was no variation to correlation with spontaneous drowsing or sleep. No epileptiform discharge was identified. VITAL SIGNS: Blood pressure is still low at 84/49, on pressor agents. Pulse 79, respirations 17, temperature 98.4 degrees Fahrenheit. LABORATORY DATA: Shows a white count 4980, hemoglobin 8.3, hematocrit 27.2, platelet count is back down to 37,000. Blood gases, 7.29 on the pH, pCO2 29, PO2 111. Lactate is still very elevated at 7.30. Potassium has gone up to 6.0. No family members are by the bedside this morning. I had discussed with them yesterday that we were going to do an EEG, that she was nonresponsive and I wondered if she had encephalopathy with hypoxic brain injury. I think that is what this EEG is telling us as well. ASSESSMENT: 1. Upper gastrointestinal bleed. 2. Respiratory arrest. 3. Severe encephalopathy, probably from anoxic brain injury. 4. Renal failure, now on dialysis. 5. Hyperkalemia. 6. Pneumonia. Chest x-ray did show some improvement of the pneumonia today. PLAN: Will get a Palliative Care consult, try to talk with family. With her EEG the way it is and her being nonresponsive, I think the patient's family should strongly consider comfort care only and will discuss this with them. cc: Ming Palmer Jr, MD
--- NOTE | 2019-07-18 14:12 | HEMO/ONC PROGRESS NOTE ---
DATE: 07/18/2019 SUBJECTIVE: Mrs. Murillo remains unresponsive. She is in ICU, mechanical ventilator. The patient has not been sedated in multiple days. Her EEG shows minimal activity. OBJECTIVE: Vital Signs: Temperature 97.9 degrees, pulse rate 83, respiratory rate 18, blood pressure 119/67, O2 saturation 96% on mechanical ventilation. She is in 0/10 pain. General: Patient is unresponsive. Cardiovascular: Regular rate and rhythm. Respiratory: Bilateral coarse rhonchi, diminished at the bases. Gastrointestinal: Abdomen soft, slightly distended. LABORATORY: WBC is 4.98, hemoglobin 8.3, hematocrit 27.2, platelet count 37,000, potassium 6.0, creatinine 1.2, bilirubin 0.97. RADIOLOGY: Chest x-ray shows improved pneumonia plus minus pulmonary edema. ASSESSMENT AND PLAN: 1. Profound thrombocytopenia. DIC profile is negative. Does not appear to be due to any medications. This is most likely bone marrow suppression due to her complicated comorbidities. Continue to transfuse as needed per Dr. Palmer order. Nothing else to add. Discussed with Dr. Palmer. Call us if we are needed. 2. Respiratory therapy. Continue management per Pulmonology and respiratory therapy. 3. Renal failure. Patient is on dialysis. Continue management per Dr. Burgos. Dictated by ADELA Owens for Calos Velazquez MD cc: MD Ming Corbett Jr, MD MTDD
--- NOTE | 2019-07-18 14:50 | GASTROENTEROLOGY PROGRESS NOTE ---
DATE: 07/18/2019 SUBJECTIVE: Ms. Murillo is a 78-year-old female, resting in bed, on ventilator and sedated. The patient is also receiving dialysis at the bedside. OBJECTIVE: Vital Signs: Temperature 98.4, pulse 75, respirations 17, blood pressure 128/50, oxygen saturation 97% on a mechanical ventilator. The patient's weight is 186 pounds. BMI is 32.2 kg/m2. General: The patient is sedated, unable to assess. HEENT: Pale conjunctivae. Scleral icteric. Neck: Supple. Lungs: Coarse wheezing heard in the anterior mandujano. Cardiovascular: Regular rate and rhythm. Abdomen: Soft, obese. Active bowel sounds heard in all 4 quadrants. Neurologic: Unable to assess the patient. IMAGING AND LABORATORY DATA: WBC is 4.98, RBC 2.96, hemoglobin 8.3, hematocrit 27.2, platelet count 37,000. Sodium 135, potassium 6.0, chloride 100, carbon dioxide 14, anion gap 21, BUN 25, creatinine 1.2, glucose 208, calcium 2.8. Total bilirubin 0.97, AST 95, ALT 28, alkaline phosphatase 118, albumin is 3.1. Chest x-ray showed improved pneumonia, plus or minus pulmonary edema. IMPRESSION: Upper GI bleed Esophageal necrosis Duodenal ulcers Anemia Acute hypoxic respiratory failure Constipation Encephalopathy Thrombocytopenia Acute on chronic kidney disease Malnutrition Aspiration pneumonia PLAN: Ms. Murillo is a 78-year-old female who is on a mechanical ventilator, sedative and unresponsive. GI is seeing her for a GI bleed initially, and found out that the patient had esophageal necrosis and duodenal ulcerations. She is currently NPO and unresponsive. The patient is getting dialysis at the bedside and receiving antibiotics for her PNA. Nephrology is following her. We will continue with supportive care. The patient is receiving Clinimix for her nutrition, and is on IV folic acid. We will continue with gastrointestinal prophylaxis, Protonix 40 mg intravenously twice a day for her GI bleed and esophageal necrosis. Her platelet count today is 37,000, Oncology is following her. We will continue to monitor her CBC, BMP, and follow the plan of care per PCP, part time receptionist, oncologist and pulmonary team. This plan was discussed with Dr. Aguilar. Please call us for any further questions or concerns. Dictated by ADELA Hurt for Dipesh Aguilar MD cc: Ming Palmer Jr, MD Physician Attestation I have seen and examined the patient. I have discussed and reviewed the the note by Megan CHAPMAN and agree with findings and plan as documented. In brief, Ms. Neetu Murillo is a 78 year old woman initially admitted with AMS from presumed UTI whose course has c/b hypoxic respiratory failure, CONCETTA on HD, and GI bleed found to have diffuse esophageal necrosis and duodenal ulceration c/f ischemic injury. She is currently in shock on pressors with lactic acidosis. No cortical activity on recent EEG. No transfusion needs. No new recommendations. Discussed grim prognosis with family at bedside. Neurology following. MTDD
--- NOTE | 2019-07-18 15:15 | INFECTIOUS DISEASE PROGRESS NO ---
DATE: 07/18/2019 PRESENT ILLNESS: The patient is being treated for bilateral pneumonia. She also has an immunoglobulin deficiency. MEDICATIONS: This is day 4 of cefepime, day 6 of vancomycin, and the patient already has received immunoglobulin infusions. PHYSICAL EXAMINATION: Vital Signs: Temperature is 99 degrees, pulse 91, respirations 15, blood pressure is 104/47. General: This is an obese, elderly female. She is intubated and obtunded. Head, eyes, ears, nose and throat: The patient has an orotracheal tube in place. There is no drainage from the nose or ears. Neck: No stiffness and it did not seem to be causing her pain when I passively moved her neck. Lungs: Bilateral rhonchi. Cardiovascular: Heart rate at times was regular, but it also is irregular. Abdomen: Soft and not tender. Extremities: The patient has a dialysis catheter in the right groin. The site is not purulent or bleeding. The patient has a PICC in the left arm; that site also is not purulent or bleeding. Neurologic: The patient is obtunded. She does not respond to verbal stimuli. She does not have a tremor. LAB AND X-RAY: Chest x-ray shows improvement in the patient's infiltrate. The patient's CBC shows a white count of 4980, hemoglobin 8.3, and platelet count 37,000. ASSESSMENT AND PLAN: Patient has pneumonia and an immunoglobulin deficiency. She already has received treatment for the immunoglobulin deficiency with IVIG. For now, I am going to continue with her current antibiotics because her x-ray is improving. COMORBIDITIES: Chronic kidney disease, diabetes mellitus, diverticulosis, hypertension, and hyperlipidemia. cc: MD Ming Cantrell Jr, MD
[2019-07-18] MEDS: SODIUM CHLORIDE 0.9% INJ SCH (16:31)
[2019-07-18] MEDS: MAXIPIME 1 GM in NS 50 ML IV SCH (16:31)
[2019-07-18] MEDS ORDERED: VANCOMYCIN 1 GM/NS 1 GM/250 ML IVPB IV ONE (17:00)
--- NOTE | 2019-07-18 18:24 | PROGRESS NOTE ---
DATE: 07/18/2019 SUBJECTIVE/PLAN: Ms. Murillo has not changed clinically. There is no response to usual neurologic bedside testing for alerting or for brainstem function. There was not close family at the bedside. Family present reports being aware that close family will be having discussion soon to make decisions about her further management. I do not have anything new to add from Neurology standpoint today. Thanks for asking us to see Ms. Murillo. cc: MD Ming Ritter III, Jr, MD MTDD
[2019-07-18] MEDS: FOLIC ACID 5 MG in NS 50 ML IV SCH (20:23)
[2019-07-18] MEDS: XALATAN 0.005% OPH SOLN LEFT EYE SCH (20:23)
[2019-07-19] MEDS: HUMALOG SUBQ SCH ×6 (00:18→20:12)
--- NOTE | 2019-07-19 00:47 | PULMONOLOGY PROGRESS NOTE ---
DATE: 07/18/2019 INTERIM HISTORY: Patient was seen earlier this morning. She had no respiratory effort despite being acidotic at the time of her morning blood gas. CT scan of the brain and chest were ordered and pending because the patient was on dialysis. I went to review them this evening and both studies have been canceled at the request of the family by nursing reports. This is being clarified. SUBJECTIVE: General: The patient remains unresponsive. Vital Signs: Blood pressure 106/44, heart rate 114, respiratory rate 16, oxygen saturation 98%. HEENT: Pupils appear equal but nonreactive. Neck: Supple. Chest: Reveals good air entry bilaterally. Cardiac: S1-S2. Abdomen: Soft. Extremities: Cool to the touch. LABORATORIES: Sodium 135, potassium 6.0, chloride 100, bicarbonate 14, anion gap 21, BUN 25, creatinine 1.2, glucose 208. Arterial blood gas, pH 7.29, pCO2 of 29, PO2 of 111 with a lactate of 7.30. IMPRESSION: 1. A 78-year-old with encephalopathy and clinical appearance of brain . 2. Septic shock with ongoing lactic acidosis. 3. Acute hypoxemic respiratory failure. 4. Pneumonia. 5. Diabetes mellitus. 6. Acute renal failure on the background chronic renal failure. PLAN: 1. Clarify discontinuation of brain scan which may have demonstrated diffuse edema supporting brain . 2. We will hold on CT scan of the thorax for possible mediastinitis given extremely poor brain function. 3. Continue antibiotics. 4. Continue management per Nephrology. 5. Overall prognosis appears poor. TIME: Spent in critical care management, 30+ minutes. cc: MD Ming Castro Jr, MD
[2019-07-19] MEDS: ALBUTEROL NEB INH SCH ×4 (03:10→21:46)
[2019-07-19] MEDS: LEVOPHED 8 MG in D5 1/2 NS 250 ML IV SCH ×4 (03:21→20:18)
[2019-07-19] MEDS: PROTONIX IV SCH ×2 (03:23→18:03)
[2019-07-19] MEDS: CLINIMIX E 4.25%-5% SOLUTION 1,000 ML IV SCH ×2 (04:09→20:09)
[2019-07-19 04:40] LABS: ALLEN TEST YES; BE -14.8 mmoll (-3.0-3.0); BLOOD TYPE ARTERIAL; HCO3-(ACT) 13.4 mmoll (20.0-26.0); METHB 1.7 % (0.0-1.5); O2(CT) 12.7 mL/dL (15.0-23.0); O2HB 96.2 % (95.0-99.0); PCO2(98.6) 26 mmHg (35-45); PO2(98.6) 119 mmHg (60-100); SAMPLE BLOOD; SRATE 15 BPM; THB 9.2 g/dL (11.5-17.4); TVOL 550 mL; pH(98.6) 7.24 (7.35-7.45)
[2019-07-19 04:41] LABS: MODALITY VENTILATOR
[2019-07-19 06:16] LABS: HEMATOCRIT 29.3 % (37.0-47.0); MCH 28.9 PG (27-31); MCHC 30.7 g/dL (33-37); MCV 94.2 FL (81-99); RBC 3.11 XMIL (4.2-5.4); RDW 15.9 % (11.5-14.5); WBC 4.31 X1000 (4.8-10.8)
--- NOTE | 2019-07-19 06:42 | Diag Imaging Result Doc PS360 ---
EXAM: CHEST-PORTABLE HISTORY: respiratory failure TECHNIQUE: Single view 07/18/2019 COMPARISON: None. FINDINGS: Endotracheal tube in good position. No change in the left-sided PICC line. There are infiltrates in the mid and lower left lung with a small left pleural effusion. No cardiomegaly. Mild central vascular prominence. IMPRESSION: Stable chest Electronically signed by Pranav Espino 07/19/2019 6:39 AM
[2019-07-19] MEDS ORDERED: NS 2,000 ML MISC PRN (09:19)
[2019-07-19] MEDS: ROCALTROL PO SCH (10:09)
--- NOTE | 2019-07-19 12:23 | Diag Imaging Result Doc PS360 ---
EXAM: CT HEAD W/O CONTRAST INDICATION: suspected brain TECHNIQUE: This exam was performed using automated exposure control, adjustment of mA or kV according to patient size, and/or use of iterative reconstruction technique. COMPARISON: 07/08/2019 FINDINGS: There is acute subarachnoid blood in the fourth ventricle and it appears to be layering in the sulci overlying the cerebral convexities. There is at least some degree of diffuse cerebral edema causing sulcal effacement globally. There is no evidence of hydrocephalus currently. The surrounding soft tissues and bony structures are essentially unremarkable. IMPRESSION: Acute subarachnoid blood in the fourth ventricle and likely in the sulci overlying the cerebral convexities with some degree of diffuse cerebral edema. The findings were discussed with the patient's nurse, Linda Barnes, at 07/19/2019 12:20 PM and was acknowledged. Electronically signed by Benitez Bloom 07/19/2019 12:21 PM
--- NOTE | 2019-07-19 12:44 | Diag Imaging Result Doc PS360 ---
EXAM: CT THORAX W/O CONTRAST INDICATION: Pneumonia TECHNIQUE: This exam was performed using automated exposure control, adjustment of mA or kV according to patient size, and/or use of iterative reconstruction technique. COMPARISON: 07/07/2019 FINDINGS: There are patchy airspace infiltrates seen throughout both lungs indicating multilobar pneumonia. Overall, it has improved modestly since the previous study. Specifically, there is less consolidation in the lingula and the right lung base as compared to the previous study. Atelectasis at the right lung base has improved. Left basilar atelectasis is slightly worse. There is bibasilar bronchial mucous plugging. There is trace pleural fluid on the right and left. There has been improvement of this on the right. There is no pneumothorax. The patient is intubated. There is fluid in the esophagus indicating gastroesophageal reflux. There is no cardiomegaly. IMPRESSION: 1.Bilateral multilobar pneumonia that has improved modestly since the previous study. 2.Bilateral lower lobe mucous plugging. 3.Fluid in the esophagus suggesting gastroesophageal reflux. Electronically signed by Benitez Bloom 07/19/2019 12:42 PM
--- NOTE | 2019-07-19 13:27 | PROGRESS NOTE ---
DATE: 07/19/2019 SUBJECTIVE: The patient is still unresponsive. Initial EEG really shows no cortical activity with severe encephalopathy. It was my understanding that the patient had requested that she have another EEG, and she is to have a CT scan of her head. Then apparently the CT scan at the request of the patient's family yesterday was canceled. I do think it would have given us information about whether there was a brain or not. I think the EEG also gives us that information as well. Blood pressure has still been low, and she is on pressor agents. Family members were not by the bedside yesterday. I left word to let them know that I was going to be here this morning, and that we needed to talk. Palliative Care did come by and talk with them apparently. Family members are not here at this time. OBJECTIVE: Blood pressure 74/39, respirations 20, and pulse 105. Temperature 98.8 degrees Fahrenheit. Laboratory shows a white count of 4310, hemoglobin 9, and hematocrit 29.3. Blood gas shows a pH of 7.24, pCO2 26, PO2 119. Lactate is up to 10.10 HEENT: She is normocephalic. She is unresponsive. Lungs: Fairly clear to auscultation. Chest x-ray shows some improvement of the pneumonia. Heart: Regular rate and rhythm to sinus tachycardia without murmurs, gallops, or friction rubs. Abdomen: Soft. Active bowel sounds. No organomegaly or tenderness. Neurological: Patient is totally unresponsive. IMPRESSION: 1. Upper gastrointestinal bleed. 2. Respiratory arrest. 3. Septic shock with ongoing lactic acidosis. 4. Pneumonia. 5. Diabetes. 6. Acute renal failure now on dialysis. 7. Encephalopathy with what appears to be brain . PLAN: We will try again to talk with family about making a decision about this patient. My opinion is that we should discontinue supportive care because of brain . The family would like a CT scan to help confirm what the EEG is showing us. We could certainly do that. cc: Ming Palmer Jr, MD
--- NOTE | 2019-07-19 14:35 | INFECTIOUS DISEASE PROGRESS NO ---
DATE: 07/19/2019 PRESENT ILLNESS: The patient has pneumonia. She also has an immunoglobulin deficiency. MEDICATIONS: This is day 5 of treatment with cefepime and day 7 of treatment with vancomycin. The patient has received 2 infusions of IVIG. PHYSICAL EXAMINATION: Vital Signs: Temperature is 99 degrees, pulse 105, respirations 20, blood pressure 74/39. General: This is an obese, elderly female. She is intubated and she is obtunded. Head/eyes/ears/nose/throat: Patient has an orotracheal tube in place. There is no drainage from the nose or the ears. Neck: There did not seem to be any pain when I moved the patient's neck. Lungs: Bilateral rhonchi. Cardiovascular: Heart rate was regular at times and other times it was irregular. Abdomen: Soft and not tender. Extremities: In the right groin, the patient has a dialysis catheter. There is no bleeding and there is no purulence. In the left arm, the patient has a PICC and that site also is not bleeding and it is not purulent. IMAGING AND LABORATORY DATA: The chest x-ray shows left lung infiltrate which is stable. Sputum grew a methicillin-resistant Staph epidermidis. Creatinine is 1.2. GFR is 53. Blood gases show a pH of 7.24, PO2 of 119, and a pCO2 of 26. CBC shows a white count of 4310, hemoglobin 9, and platelet count 23,000. ASSESSMENT AND PLAN: The patient has pneumonia and an immunoglobulin deficiency. She has received IVIG for her immunoglobulin deficiency, and I am going to continue her current antibiotics, namely vancomycin and cefepime. COMORBIDITIES: Chronic kidney disease, diabetes mellitus. cc: MD Ming Cantrell Jr, MD
--- NOTE | 2019-07-19 16:52 | PROGRESS NOTE ---
DATE: 07/19/2019 SUBJECTIVE/PLAN: Ms. Murillo is unchanged clinically. There is no clinical evidence of brain function. Her EEG shows no evidence of brain function. CT scan showed diffuse subarachnoid hemorrhage and diffuse cerebral edema. I have not discussed most recent findings with family. Thanks for asking Neurology to see Ms. Murillo. cc: MD Ming Ritter III, Jr, MD
[2019-07-19] MEDS ORDERED: MAXIPIME 1 GM in NS 50 ML IV ONE (17:00)
[2019-07-19] MEDS ORDERED: VANCOMYCIN 1 GM/NS 1 GM/250 ML IVPB IV ONE (17:30)
--- NOTE | 2019-07-19 17:35 | GASTROENTEROLOGY PROGRESS NOTE ---
DATE: 07/19/2019 SUBJECTIVE: Ms. Murillo is a 78-year-old, [place] female, resting in bed, on ventilator and sedated. The patient is also receiving dialysis at the bedside. Family is at the bedside. OBJECTIVE: Vital signs: Temperature 98.4 degrees, pulse 112, respirations 15, blood pressure 82/59, oxygen saturation 98% on mechanical ventilator. The patient's weight is 189 pounds. BMI is 33.5 kg/m2. General: The patient is sedated, unable to assess. HEENT: Pale conjunctivae. Clear, anicteric. Neck: Supple. Lungs: Diminished breath sounds with coarse wheezing heard in the anterior mandujano. Cardiovascular: Patient is tachycardic. Abdomen: Soft, obese. Hypoactive bowel sounds heard in all 4 quadrants. Neurologic: Unable to assess the patient. LABORATORY DATA: WBC is 4.31, RBC 3.11, hemoglobin 9.0, hematocrit 29.3, platelet count 23,000. The patient's sodium is 135, potassium 6.0, chloride 100, carbon dioxide 14, anion gap 21, BUN 25, creatinine 1.2, glucose 208, calcium 8.4, total bilirubin 0.97, AST 95, ALT 28, alkaline phosphatase 118, albumin is 3.1. Chemistries are from 07/18/2019. IMAGING: Chest x-ray showed stable chest. IMPRESSION: 1. Upper gastrointestinal bleed. 2. Esophageal necrosis. 3. Duodenal ulcers. 4. Anemia. 5. Acute hypoxic respiratory failure. 6. Constipation. 7. Encephalopathy. 8. Thrombocytopenia. 9. Acute on chronic kidney disease. 10. Malnutrition. 11. Aspiration pneumonia. PLAN: Ms. Murillo is a 78-year-old, -[place] female, who is sedated, unresponsive, and is on mechanical ventilator. GI is following her and was initially consulted for a GI bleed. We did an EGD that showed she had esophageal necrosis and duodenal ulcerations. The patient is currently n.p.o. and unresponsive. She is also getting dialysis at the bedside and is receiving antibiotics for her pneumonia. She is currently receiving Clinimix for her nutrition and is on IV folic acid. We will continue to provide supportive care to the patient. We will continue with the GI prophylaxis, Protonix 40 mg IV twice a day. The patient's hemoglobin and hematocrit today was 9.0 and 29.3. It has trended upwards. Her platelet count is 23,000, which has been trending downward. Oncology is following the patient. We will continue to monitor the patient's CBC, BMP, and follow the plan of care per PCP, sole blacker, oncologist, and the Pulmonary team. This plan was discussed with Dr. Aguilar. Please call us for any further questions or concerns. Dictated by ADELA Hurt for Dipesh Aguilar MD cc: Ming Palmer Jr, MD Physician Attestation I have seen and examined the patient. I have discussed and reviewed the the note by Megan CHAPMAN and agree with findings and plan as documented. Reviewed recent repeat EEG and findings on head CT today. Continuing current treatments is medically futile in light of brain . No further GI needs. Will sign off. MTDD
[2019-07-19] MEDS: SODIUM CHLORIDE 0.9% INJ SCH (18:04)
--- NOTE | 2019-07-19 19:20 | NEPHROLOGY PROGRESS NOTE ---
DATE: 07/19/2019 SUBJECTIVE: Patient with no improvement overnight. She has had significant hypotension. Family currently making decisions regarding her plan of care. OBJECTIVE: Vital Signs: Temperature 98.8 degrees, pulse 105, respiratory rate 20, blood pressure 74/39, intake 2.6 L, output 3.7 L, UF on SLED. General: This is a critically ill-appearing, elderly female, who is nonresponsive and mechanically ventilated. HEENT: Normocephalic, atraumatic. Orally intubated. Oral mucosa is dry. Pupils are nonreactive. Neck: Supple without JVD in a reclined position. Cardiovascular: She is tachycardic today with multiple PVCs. Multiple pressor support. Pulmonary: Remains mechanically ventilated. Decreased breath sounds. Abdomen: Hypoactive. : Garcia catheter. Scant urine. Extremities: Trace edema. No clubbing, cyanosis. Integumentary: Skin is warm and dry. ASSESSMENT AND PLAN: 1. Acute on chronic kidney disease, without improvement. We are planning on sustained low efficiency dialysis (SLED) today. Her blood pressure is such that it will impede our efforts to remove any fluid via ultrafiltration. I am reducing her goal to 1 L. 2. Electrolytes, acid-base balance. She is going to be on a 3K bath with a 32 bicarb secondary to her labs. 3. Disposition. Primary currently in discussion with multiple family members regarding her plan of care. The patient is to undergo an additional EEG today. If this remains without any reactivity, we understand that the family may opt to withdraw care. Until her plan of care changes, we will continue with her dialysis. Dictated by ADELA Ramirez for Ilia Burgos MD cc: MD Ming Gonzalez Jr, MD
[2019-07-19] MEDS: XALATAN 0.005% OPH SOLN LEFT EYE SCH (20:08)
[2019-07-19] MEDS: FOLIC ACID 5 MG in NS 50 ML IV SCH (20:09)
--- NOTE | 2019-07-19 20:32 | PROGRESS NOTE ---
DATE: 07/19/2019 I came back over to see the patient and see family members today as we had a CT scan of the head showing edema and subarachnoid bleeds consistent with permanent brain injury. Her EEG had no electrical impulses consistent with brain . I came to talk with the family about possibly stopping her ventilator. There was 1 daughter here by the name of Isaura who says she refuses to make the decision about stopping the ventilator. I had explained to her in detail that there is no brain activity and that we are having to give her pressor agents to keep her blood pressure up, and we are having to give her dialysis because of her kidney failure. This daughter did leave without making a decision and said she would have to get together with her other sisters, and they would have to make this decision together. I asked that before she left that we get these people together and we try to make a decision about what is best under the circumstances. Isaura left, and I was told that another sister was coming. I talked with her on the phone, and she says she was in [place] but headed this way. Apparently she had been to another . A brother of Ms. Lugo was in the room, and I sat and talked with him about her at length, but he was not in a position to make a decision. I did wait until the other daughter coming from [place] came in, and she brought a good bit of family plus apparently 2 sons, and she came in and said she was tired of coming up here, and she was not going to make this decision. I explained to her that even if she did want to take her off the ventilator we should consider making her a no code blue because her blood pressure was low on pressor agents and if her heart stops that I did not feel like it would be beneficial at all to try to shock her or do chest percussions. She would not make the decision and said that she was leaving and pretty much wanted to talk with the charge nurse so that she could get work and school excuses for her and her family for being here. She did not stay but for just 4 or 5 minutes and left. I had talked with her earlier this morning at length about this, but I think this has overwhelmed her and that she does not want to make this decision. I talked with grandsons, and they tell me that they wanted to wait until tomorrow to make this decision because it was her birthday. One family member says it should be at 9:00 tomorrow morning before they make the decision. Another family member says it should be made after midnight so that she would pass away officially on her . I explained to them that she is already brain and that we should not wait, but if we did we certainly did not want to try cardiac resuscitation. One grandson that I mentioned that I was making him aware that she was brain and he says that is just an opinion. He took the no code blue orders and said he would read but he was not going to sign it, not at this time. I asked to see if anyone had [id number] or whoever was in charge and they all said in unison that the whole family was in charge and they all had to come to an agreement. One daughter Isaura did not come back. We are left with a quandary in that that patient is brain , on a ventilator, and the family refuses to let us unhook her from the ventilator. They also stated that they understand that we are obligated to shock her and to keep her heart going. All in all, I spent 2-1/2 hours with the family and with the care of the patient and explaining what was going on with the patient. I had discussed the patient's condition when I was first coming over to the hospital this afternoon with Dr. Almazan who agrees that she is really brain at this point. I did try to explain to one daughter, Isaura, about what we had thought had happened with her and that she had had an upper GI bleed and probably an aspiration pneumonia that then led to brain hypoxia. She also has a lactic acidosis and I tried to explain that in layman's terms the best I could and that she had had a necrotic esophagus. It is my opinion at this point that the patient is brain , but the family is set on having us keep the rest of her body alive until her birthday tomorrow. At that time, I do not know whether they will agree to take her off the respirator or not, and right now, she is a full code. I have had several other doctors consult on this case who agree with the assessment that she is not going to get over this, that she is already brain . cc: Ming Palmer Jr, MD
--- NOTE | 2019-07-19 22:57 | PULMONOLOGY PROGRESS NOTE ---
DATE: 07/19/2019 SUBJECTIVE: The patient does not respond to painful stimuli. Mechanical ventilation was interrupted for 2 minutes. The patient did not have oxygen desaturation. She did not have a spontaneous breath despite having a pH of 7.24 this morning with a lactate of 10.1. OBJECTIVE: HEENT: There is no corneal reflex. No pupillary reflexes are seen. Oropharynx appears clear. Neck: Supple. Chest: Reveals coarse rhonchi bilaterally. Cardiac: S1, S2. Abdomen: Soft. No bowel sounds are present. Extremities: Cool to the touch. LABORATORIES: CT scan of the thorax is reviewed. There is some thickening of the esophagus with fluid in the esophagus. There is bilateral pneumonia with mild improvement compared to 07/07/2019. CT scan of the brain reveals diffuse cerebral edema with some acute subarachnoid blood present in the 4th ventricle and sulci. EEG per Dr. Latoya Almazan's note along with phone conversation reveals no evidence of brain function. IMPRESSION: 1. Brain . This has been confirmed clinically, electrically with an EEG, and radiograph of the brain is also consistent with this diagnosis. 2. Ongoing lactic acidosis. 3. Acute hypoxemic respiratory failure. 4. Pneumonia with radiographic improvement on CT scan. 5. Diabetes mellitus. 6. Acute renal failure. PLAN: 1. Discussed case with Dr. Almazan. He agrees that the patient is clinically brain . He believes that this is the function of the attending physician to discuss with the family. 2. We will discontinue laboratories and radiograph. Recommend discontinuing treatment at this time with the diagnosis of brain . cc: MD Ming Castro Jr, MD
[2019-07-20] MEDS: HUMALOG SUBQ SCH ×3 (01:15→08:33)
--- NOTE | 2019-07-20 01:21 | EEG REPORT ---
DATE: 07/19/2019 EEG #: [id number] COMMENT: This is a digitally recorded EEG on a 78-year-old patient in the ICU with no clinical evidence of brain function. FINDINGS: Over 30 minutes of EEG recording, there was no identified cortical activity. Usual ICU artifacts were identified and did not hinder interpretation. There was no change in EEG with noxious stimulation or with photic stimulation. INTERPRETATION: Electrocerebral silence. cc: MD Ming Ritter III, Jr, MD MTDD
[2019-07-20] MEDS: ALBUTEROL NEB INH SCH ×2 (02:58→08:11)
[2019-07-20] MEDS: PROTONIX IV SCH (04:30)
[2019-07-20] MEDS: LEVOPHED 8 MG in D5 1/2 NS 250 ML IV SCH (05:19)
[2019-07-20] MEDS: ROCALTROL PO SCH (08:51)
[2019-07-20] MEDS: CLINIMIX E 4.25%-5% SOLUTION 1,000 ML IV SCH (08:51)
[2019-07-20 11:03] VITALS: BP 78/45
--- NOTE | 2019-07-20 21:08 | NEPHROLOGY PROGRESS NOTE ---
DATE: 07/20/2019 SUBJECTIVE: The patient has been declared brain , physician has spoken with the family. We are waiting on family decision regarding plan of care. OBJECTIVE: Vital signs: Temperature 98.4 degrees, pulse 96, respiratory rate 15, blood pressure 102/43, maxed out on Levophed, intake 3.3 L, output none. On examination: General: This is a critically ill-appearing elderly female who remains mechanically ventilated. She is currently on no sedation and is unresponsive. Oral mucosa is dry. Neck is supple. She has no JVD. Cardiovascular: Occasionally tachycardic. Her blood pressure is currently dropping and most recent reading while I am in the room with a systolic in the 80s. Pulmonary: Remains mechanically ventilated. She is not breathing above the vent. Abdomen: Hypoactive. Quiet bowel sounds. : Garcia catheter. Extremities: Trace edema. Integumentary: Skin is warm and dry. LABORATORY DATA: WBC of 4.3, hemoglobin 9, sodium 135, potassium 6.0, CO2 14, creatinine 1.2, her platelets are 23. ASSESSMENT AND PLAN: 1. Acute on chronic kidney disease. We are waiting for the family to make a decision as far as plan of care for this patient. If they desire, we will attempt sustained low efficiency dialysis (SLED), although she has been hemodynamically unstable and we had to abort her treatment yesterday. It is not likely she would tolerate dialysis, even with SLED, today. She is already maxed out on pressor support and her hemodynamics are declining. 2. Electrolytes, acid-base balance. These are approximately the same as yesterday. 3. Disposition: See above for plan of care. Dictated by ADELA Ramirez for Ilia Burgos MD cc: MD Ming Gonzalez Jr, MD
--- NOTE | 2019-07-25 02:51 | DISCHARGE SUMMARY ---
ADMISSION DATE: 07/01/2019 DISCHARGE DATE: 07/20/2019 ADMISSION HISTORY: First admitted on 07/01/2019 at [facility], then transferred over to [facility] on 07/06/2019. The patient on 07/20/2019. CONSULTATIONS INCLUDE: 1. Palliative care. 2. Neurology, Dr. Almazan. 3. Gastroenterology, Dr. Stein and Dr. Aguilar. 4. Surgery, Dr. Álvarez. 5. Pulmonology, Dr. Ware. 6. Nephrology, Dr. Burgos. 7. Infectious disease, Dr. Jeronimo. 8. Hematology/oncology, Dr. Velazquez. FINAL DIAGNOSES: 1. Cardiopulmonary arrest. 2. Respiratory arrest with hypoxic anemia. 3. Renal failure. 4. Upper gastrointestinal bleed. 5. Pneumonia with aspiration. 6. Hematemesis. 7. Necrotic esophagus. 8. Peptic ulcer disease. 9. Encephalopathy. 10. Thrombocytopenia. 11. Septic shock with lactic acidosis. SECONDARY DIAGNOSES: 1. Diabetes mellitus. 2. The patient probably had a urinary tract infection as well. It should be noted that all cultures, including blood cultures and urine cultures came back negative, but she was on antibiotics during some of the time that these cultures were drawn and she did grow out Staph epidermidis in her sputum on 07/09/2019. HISTORY OF PRESENT ILLNESS: The patient was brought to the hospital at [facility] with agitation, urinary incontinence and weakness. She had a history of diabetes, hypertension, hyperlipidemia, chronic kidney disease. She was treated with IV antibiotics for urinary tract infection. The patient did not improve. She did throw up some blood and became less responsive, and was transferred to [facility] with consultation in to pulmonology. Initially thought that she was going to be intubated at that time, but went on BiPAP, but soon thereafter did have to be intubated. The patient went into renal failure during this time. Nephrology was consulted and started her on dialysis. GI was consulted, found that she had what appeared to be a necrotic esophagus and peptic ulcer disease. There, apparently, had been some question about her esophagus a few weeks prior to this when she was seen by gastroenterology and she was sent to the hospital to be admitted, but checked out against medical advice. This may have been an ongoing condition, the patient is certainly looked septic with elevated lactate, though cultures came back negative. Platelet count dropped and hematology/oncology was consulted. She was given platelets. She also had low immunoglobulins and was treated for that by Dr. Jeronimo, infectious diseases. She developed what looked like an aspiration pneumonia, was on a respirator, was not responsive. Dr. Finn saw her 1st on the 07/07/2019, after she had been transferred over, and Dr. Ware had seen her on 07/06/2019, this was over the weekend. I did not see her until 07/08/2019. She was unresponsive at that time. She continued to deteriorate in that she was not responsive at all and on the ventilator. She was finally taken off of propofol and she still was not responsive at all for several days. She became hypotensive and was placed on pressor agents, She was anemic and had to be transfused from upper gastrointestinal bleed. She was followed by GI during this time. Hemoglobin went down to 6.7. I felt that because the patient was not getting better, we did an EEG and ordered a CT scan. The family requested that we not do the CT scan at that time, but the EEG showed very little brain activity. Came back the next day and did another EEG soon thereafter that showed really no brain activity. CT scan was finally performed and it did show changes consistent with hypoxia and brain injury with some hemorrhages from the brain deteriorating, we felt. Neurology was on board with this and monitoring. I sat and explained to the family that I felt that she was brain , she was unresponsive. Several of the other doctors explained this to the family as well. Family still did not want her taken off the ventilator or to stop any procedures. We had palliative care come see the family and talk with them. I talked with them and spent one afternoon 2-1/2 hours waiting for family and talking with family to see if they would take her off of the ventilator because of the circumstances, they refused. Finally, on 07/20/2019, the patient's heart stopped and she was then taken off the ventilator. The patient's family had remarked that they did not want to take her off of the ventilator until her birthday, which was 07/20/2017. They did not explain why. This patient had multiple health problems and had multiple end-organ damage. I appreciate all the help from all the specialists in trying to do what we could do for this patient. cc: Ming Palmer Jr, MD
== END 2019-07-20 10:12 | disposition expired | DRG 682 ==
LOC: P.ED 18:52 → P.MEDSURG 18:52 → SUATTDRO 07-01 11:46 → SUPCPDRO 07-01 11:46 → P.EDIPHOLD 07-06 05:12 → 2N 07-06 05:12 → ICU 07-08 11:03
PROVIDERS: ADMIT Emergency Medicine; ATTEND Emergency Medicine
PROC: EN.HEAT (2019-07-09 09:49)